=== PATIENT | female | born 1985 | race Hispanic/Latino ===

== ENCOUNTER 2020-04-01 06:35 | Outpatient (CLI) | payer OTHER, SELFPAY ==
[2020-04-01 17:27] LABS: SARS-CoV-2 RNA PCR Negative
== END 2020-04-01 06:36 | disposition home or self-care (01) ==
LOC: ANHCOVIDDT 06:35
PROVIDERS: Visit Provider Obstetrics & Gynecology
DX: Z01.812 Encounter for preprocedural laboratory examination (principal); Z11.59 Encounter for screening for other viral diseases
CPT/HCPCS: 87635; C9803; U0003

== ENCOUNTER 2020-04-04 03:30 | Day surgery (SDC) | payer OTHER, SELFPAY ==
[2020-03-30 16:20] VITALS: BMI 37.6
[2020-04-04 06:19] VITALS: BMI 38.0
[2020-04-04] MEDS: LACTATED RINGERS 1,000 ML 30 ML IV CONT (06:30)
[2020-04-04] MEDS: IBUPROFEN IV 800 MG/200 ML 800 MG/200 ML BAG 400 MG IVPB (06:35)
--- NOTE | 2020-04-04 06:37 | WPDHPUPDATE1 ---
History and Physical Update Update Date/Time: 04/04/20 06:37 History and Physical has been reviewed, including an updated exam of the patient. There are NO changes in the patient's condition. Risks, benefits, and alternatives have been discussed and questions answered. Patient agrees to proceed with procedure.
--- NOTE | 2020-04-04 06:58 | P.PNAN_ITS ---
Anes - Initial Pre Proc Eval Procedure: Operation Date: 04/04/20 07:30 Proposed Procedures p Suction Dilation and Curettage - Choco Hensley MD Date/Time: 04/04/20 06:58 Surgeon: Choco Hensley MD Pre Op Diagnosis: Missed AB Patient Data Age: 34 Gender: F Height: 5 ft 2 in Weight: 94.2 kg Allergies Allergy/AdvReac Type Severity Reaction Status Date / Time No Known Allergies Allergy Verified 03/30/20 16:31 Home Medications Medication Instructions Recorded Confirmed Type No Home Medications 03/30/20 03/30/20 History Patient hx anesthesia problems: none Family hx anesthesia problems: none [facility] Past Medical History Medical History (Updated 04/04/20 @ 07:02 by Manpreet Richey MD) Obesity Surgical History Surgical History (Updated 04/04/20 @ 07:02 by Manpreet Richey MD) History of D&C Social History Social History Years smoked: 3 Smoking status: Former smoker Additional smoking assessment comments: QUIT 4 YEARS AGO Substance use: never Spiritual care concerns: No Anes - Eval Final PreProcedure Day of Procedure 04/04/20 06:58 Patient weight: obese Heart: regular rate and rhythm Lungs: clear to auscultation Airway: Mallampati scale class II Neurological: alert and oriented Last oral intake: >/= 8 hours ASA classification: II Emergent: no Anesthetic plan: proceed Anesthesia type and monitoring: general GIVS and standard monitoring Informed Consent: The patient's anesthetic plan and its attendant risks and benefits were discussed with the patient/family/POA. Questions were solicited and answers provided to the satisfaction of the patient/family/POA.
[2020-04-04 07:19] VITALS: BP 131/69; PULSE 84; RESP 16; TEMP 37.1; O2SAT 100
[2020-04-04 08:05] VITALS: BP 99/62; PULSE 83; RESP 14; O2SAT 93
--- NOTE | 2020-04-04 08:18 | P.OP_ITS ---
Procedure Note - Detailed Date of procedure: 04/04/20 Pre-op diagnosis: Missed AB Post-op diagnosis: same Procedure performed: Suction D&C Description of procedure: The patient was taken the operating room. She has prepped and draped in dorsal lithotomy position after induction of mac anesthesia. A speculum was placed in the vagina. The cervix was grasped with a tenaculum. The cervix was injected at 3 and 9:00 a.m. with 1% lidocaine. The cervix was dilated up to 8 mm using Jeffery dilators. An 8 curved plastic suction curette was then applied to the intrauterine cavity. All of the surfaces in the intrauterine cavity were curettage under VAC. A sharp medium-size curette was then used to curettage all the surfaces to confirmed the removal of all the products conception. When all surfaces for bleed to be clean the curette was r emoved. The suction curette was then reapplied to remove all the debris. The procedure was terminated. The tenaculum was removed. The speculum was removed. The patient tolerated the procedure well. She was taken recovery room in stable condition. Anesthesia: MAC Surgeon: Choco Hensley MD Estimated blood loss (mL): 25 Drains: No Packing: No Pathology: yes Complications: No immediate complications Condition: stable Disposition: PACU Findings: Normal vulva vagina and cervix. The moderate amounts of products conception. 12 cm uterus.
[2020-04-04 08:30] VITALS: BP 105/66; PULSE 62; RESP 14; O2SAT 95
[2020-04-04 09:00] VITALS: BP 111/62; PULSE 52; RESP 14
--- NOTE | 2020-04-25 06:28 | PM.IMHP ---
H&P: HPI History of Present Illness Chief complaint: Missed AB Narrative: Olimpia Wang is a 34 year old female With a missed . We have agreed to perform suction D&C. She denies any nausea, vomiting, fever, chills. She denies any chest pain or shortness of breath. She denies any vaginal bleeding. Review of Systems Constitutional: Constitutional: Reports no additional constitutional complaints, Denies fatigue, Denies headache(s), Denies lethargy and Denies weakness Eyes: Eyes: Reports no additional eye complaints, Denies blurry vision and Denies photophobia ENT: Reports as per HPI, Denies headache(s) and Denies neck pain Cardiovascular: Cardiovascular: Denies chest pain, Denies diaphoresis, Denies leg edema, Denies palpitations and Denies dyspnea Respiratory: Respiratory: Denies hemoptysis, Denies dyspnea and Denies wheezing Gastrointestinal: Gastrointestinal: Denies abdominal pain, Denies melena, Denies bloating, Denies hematochezia, Denies nausea and Denies vomiting Genitourinary: Genitourinary: Reports no additional female genitourinary complaints Musculoskeletal: Musculoskeletal: Denies joint swelling, Denies neck pain, Denies numbness and Denies stiffness Neurologic: Denies Abnormal speech present, Denies confusion, Denies headache(s), Denies numbness and Denies weakness Psychiatric: Psychiatric: Denies anxiety, Denies confusion, Denies depression, Denies homicidal ideation and Denies suicidal ideation Endocrine: Endocrine: Denies fatigue and Denies palpitations Allergic/Immunologic: Allergic/Immunologic: Denies wheezing PMFSH Past Medical History Medical History (Updated 04/25/20 @ 06:30 by Choco Hensley MD) Obesity Surgical History Surgical History (Updated 04/04/20 @ 07:02 by Manpreet Richey MD) History of D&C Social History Social History Years smoked: 3 Smoking status: Former smoker Additional smoking assessment comments: QUIT 4 YEARS AGO Substance use: never Spiritual care concerns: No Meds Home Medications and Allergies Home Medications Medication Instructions Recorded Confirmed Type No Home Medications 03/30/20 03/30/20 History Allergies Allergy/AdvReac Type Severity Reaction Status Date / Time No Known Allergies Allergy Verified 07/07/20 07:07 Exam Const: General: healthy appearing, comfortable and no acute distress; No confusion Orientation/consciousness: No confusion Eyes: Direct Ophthalmoscopy: No photophobia Resp: Auscultation: clear to auscultation bilaterally, no rales, no rhonchi and no wheezes Cardio: Rate: regular rate Heart sounds: no click, no murmurs and no rubs GI: Inspection: non-distended GI Palp: No abdominal tenderness Auscultation: normal bowel sounds Neuro: General: No confusion Speech: No Abnormal speech present Extrem: General: normal to inspection, no pedal edema and no calf tenderness Assessment and Plan Assessment and plan (1) Missed : Code(s): O02.1 - Missed Status: Acute Assessment and Plan: this patient is a 34-year-old female with missed . Agreed to perform suction D&C. She understands the risks, benefits, and alternatives. She has completed the informed consent process is ready to proceed.
== END 2020-04-04 09:10 | disposition home or self-care (01) ==
PROVIDERS: Visit Provider Obstetrics & Gynecology
PROC: (CPT 59820; principal; 2020-04-04 07:30)
DX: O02.1 Missed abortion (principal); Z87.891 Personal history of nicotine dependence
CPT/HCPCS: 59820; 36415; 85461; 88305; A9270; J1741; J2250; J2405; J2704; J3010; J7120

== ENCOUNTER 2020-11-08 16:42 | Outpatient (CLI) | payer OTHER, SELFPAY ==
[2020-11-11 19:34] LABS: Lupus dRVVT 1:1 Mix Interpreta Not Indicated; Lupus dRVVT Screen 34 sec (<=45); PTT-LA Screen 32 sec (<=40)
[2020-11-13 03:25] LABS: Anti Cardio Antibody IgM <12 MPL (<=12); Anti Cardiolipin Antibody IgA <11 APL (<=11); Anti Cardiolipin Antibody IgG <14 GPL (<=14)
== END 2020-11-08 16:43 | disposition home or self-care (01) ==
LOC: ANHLAB 16:44
PROVIDERS: Visit Provider Obstetrics & Gynecology
DX: N96 Recurrent pregnancy loss (principal)
CPT/HCPCS: 36415; 84443; 85613; 85730; 86147

== ENCOUNTER 2021-10-12 18:15 | Inpatient (IN) | payer OTHER, SELFPAY ==
[2021-10-12] VITALS (21 sets, daily range): BP systolic 105–136; BP diastolic 67–94; PULSE 93–114; TEMP 36.9; BMI 36.7
--- NOTE | 2021-10-12 19:05 | WPDANESEPP ---
Anes - Eval Pre Procedure Procedure: labor epidural Date/Time: 10/12/21 19:05 Surgeon: keegan Pre Op Diagnosis: IOL Patient Data Age: 36 Gender: F Height: Weight: Last Vital Signs Pulse 101 H 10/12/21 19:00 BP 120/81 10/12/21 19:00 Allergies Allergy/AdvReac Type Severity Reaction Status Date / Time No Known Allergies Allergy Verified 10/02/21 12:46 Home Medications Medication Instructions Recorded Confirmed Type aspirin [Adult Low Dose Aspirin] 81 mg PO DAILY 10/02/21 10/02/21 History ferrous sulfate 140 mg PO DAILY 10/02/21 10/02/21 History insulin NPH isoph U-100 human 6 unit SUBCUT QAM 10/02/21 10/02/21 History [Humulin N NPH U-100 Insulin] insulin NPH isoph U-100 human 52 unit SUBCUT HS 10/02/21 10/02/21 History [Humulin N NPH U-100 Insulin] prenat.vits,nadeem,[id number] 1 tablet PO DAILY 10/02/21 10/02/21 History [ #2] Patient hx anesthesia problems: none Family hx anesthesia problems: none Results Review: All pre-operative results and documents have been reviewed as part of the pre-operative evaluation. [facility] [place] Past Medical History Medical History (Updated 04/25/20 @ 06:30 by Choco Hensley MD) Obesity Surgical History Surgical History (Updated 04/04/20 @ 07:02 by Manpreet Richey MD) History of D&C Family History Family History (Updated 10/02/21 @ 12:47 by Jc King RN) Other No pertinent family history Social History Social History Years smoked: 3 Smoking status: Former smoker Additional smoking assessment comments: QUIT 4 YEARS AGO Substance use: never Spiritual care concerns: No Exam Day of Procedure 10/12/21 19:05
[2021-10-12 19:07] LABS: Glucose Point of Care 100 mg/dl (65-105)
[2021-10-12 19:13] LABS: Basophils Percent Auto 0.2 % (0.2-1.2); Eosinophils Percent Auto 0.3 % (0-4.4); Hematocrit 35.4 % (37.0-47.0); Hemoglobin 11.8 g/dL (12.0-15.0); Immature Granulocyte Absolute 0.06 K/mm3 (0.00-0.031); Immature Granulocyte Percent A 0.6 % (0-0.5); Lymphocytes Absolute Auto 1.62 K/mm3 (0.9-3.2); Mean Corpuscular HGB Conc 33.3 g/dl (32-36); Mean Corpuscular Hemoglobin 29.8 pg (26-34); Mean Corpuscular Volume 89.4 fl (80-100); Mean Platelet Volume 11.3 fl (7.4-10.4); Monocytes Absolute Auto 0.7 K/mm3 (0.1-0.6); Neutrophils Absolute Auto 7.1 K/mm3 (1.3-6.7); Neutrophils Percent Auto 74.9 % (45.5-73.1); Platelet Count Result 290 k/mm3 (150-375); Red Blood Count 3.96 M/mm3 (4.2-5.4); Red Cell Distribution Width 13.5 % (11.5-14.5); White Blood Count 9.5 K/mm3 (4.5-10.0)
[2021-10-12] MEDS: OXYTOCIN 30 UNITS/NS 500 ML 30 UNITS/500 ML BAG IV CONT (20:00)
[2021-10-12] MEDS: LACTATED RINGERS 1,000 ML 125 ML IV CONT (20:00)
[2021-10-12 23:18] LABS: Glucose Point of Care 76 mg/dl (65-105)
[2021-10-13] VITALS (169 sets, daily range): BP systolic 90–153; BP diastolic 36–109; PULSE 75–127; RESP 16–18; TEMP 36.4–37.3; O2SAT 98–100
--- NOTE | 2021-10-13 01:32 | LDADM ---
This patient, Olimpia Wang, was admitted to Labor/Delivery/Recovery 106 on 10/12/21 at 18:15. Plans for labor, pain management and were discussed with patient. Patient/family oriented to hospital policies and general routines including ID bracelet, bed and alarms, visiting hours, pain management, procedures, bathroom and other care routines, personal items, smoking policy, room service/diet and guest tray routines, security routines, and visiting hours. Patient/Family are encouraged to report perceived risks to care and to ask questions if they do not understand what they are told or what they should do. See OBIX for further documentation.
[2021-10-13 03:51] LABS: Glucose Point of Care 79 mg/dl (65-105)
[2021-10-13] MEDS: LACTATED RINGERS 1,000 ML 125 ML IV CONT ×2 (04:19→19:57)
[2021-10-13 07:32] LABS: Glucose Point of Care 86 mg/dl (65-105)
[2021-10-13 11:31] LABS: Glucose Point of Care 103 mg/dl (65-105)
[2021-10-13 15:43] LABS: Glucose Point of Care 79 mg/dl (65-105)
[2021-10-13 17:31] LABS: Glucose Point of Care 84 mg/dl (65-105)
[2021-10-13 20:04] LABS: Glucose Point of Care 81 mg/dl (65-105)
[2021-10-13 22:04] LABS: Glucose Point of Care 87 mg/dl (65-105)
[2021-10-14] VITALS (174 sets, daily range): BP systolic 71–144; BP diastolic 24–126; PULSE 52–162; RESP 16–20; TEMP 36.6–37.9; O2SAT 80–100
[2021-10-14] MEDS: LACTATED RINGERS 1,000 ML 125 ML IV CONT ×5 (00:18→07:30)
[2021-10-14 00:23] LABS: Glucose Point of Care 88 mg/dl (65-105)
[2021-10-14] MEDS: AMPICILLIN 2 GM/NS 100 ML 2 GM/100 ML BAG IVPB (02:02)
[2021-10-14 02:14] LABS: Glucose Point of Care 92 mg/dl (65-105)
[2021-10-14 04:14] LABS: Glucose Point of Care 114 mg/dl (65-105)
[2021-10-14] MEDS: AMPICILLIN 1 GM/NS 50 ML 1 GM/50 ML BAG IVPB (06:04)
[2021-10-14 06:13] LABS: Glucose Point of Care 97 mg/dl (65-105)
--- NOTE | 2021-10-14 07:26 | PM.IMHP ---
H&P: HPI History of Present Illness Date/Time: 10/14/21 07:26 Chief Complaint: induction of labor Narrative: Olimpia is a admitted for IOL at 37.4 for uncontrolled GDM and new onset gHTN. She received pitocin and AROM and progressed to 6cm over many hours. After a prolonged decel, the pitocin was turned off and was never able to be restarted due to minimal variability. The decision has been made for a CS. Review of Systems Review of Systems: All systems reviewed & are unremarkable except as noted in HPI and below PMFSH Past Medical History Medical History (Updated 04/25/20 @ 06:30 by Choco Hensley MD) Obesity Surgical History Surgical History (Updated 04/04/20 @ 07:02 by Manpreet Richey MD) History of D&C Family History Family History (Updated 10/02/21 @ 12:47 by Jc King RN) Other No pertinent family history Social History Social History Years smoked: 3 Smoking status: Never smoker Second hand tobacco smoke exposure: No Additional smoking assessment comments: QUIT 4 YEARS AGO Substance use: never Spiritual care concerns: No Meds Home Medications and Allergies Home Medications Medication Instructions Recorded Confirmed Type aspirin [Adult Low Dose Aspirin] 81 mg PO DAILY 10/02/21 10/02/21 History ferrous sulfate 140 mg PO DAILY 10/02/21 10/02/21 History insulin NPH isoph U-100 human 6 unit SUBCUT QAM 10/02/21 10/02/21 History [Humulin N NPH U-100 Insulin] insulin NPH isoph U-100 human 63 unit SUBCUT HS 10/02/21 10/12/21 History [Humulin N NPH U-100 Insulin] prenat.vits,nadeem,[id number] 1 tablet PO DAILY 10/02/21 10/02/21 History [ #2] Allergies Allergy/AdvReac Type Severity Reaction Status Date / Time No Known Allergies Allergy Verified 10/12/21 21:26 Vital Signs Vital Signs - 24 hr 10/13/21 07:30 10/13/21 08:01 10/13/21 08:16 Temperature 98.1 F Pulse Rate 96 89 88 Respiratory Rate Blood Pressure 121/80 127/61 108/60 Pulse Oximetry 10/13/21 08:30 10/13/21 08:45 10/13/21 09:01 Temperature Pulse Rate 89 83 92 Respiratory Rate Blood Pressure 111/71 115/83 115/69 Pulse Oximetry 10/13/21 09:15 10/13/21 09:30 10/13/21 09:31 Temperature 98.5 F Pulse Rate 86 92 Respiratory Rate Blood Pressure 119/68 127/70 Pulse Oximetry 10/13/21 09:45 10/13/21 10:00 10/13/21 10:15 Temperature Pulse Rate 91 92 90 Respiratory Rate Blood Pressure 124/71 121/73 127/78 Pulse Oximetry 10/13/21 10:31 10/13/21 10:45 10/13/21 11:00 Temperature Pulse Rate 84 98 93 Respiratory Rate Blood Pressure 95/56 L 115/77 125/71 Pulse Oximetry 10/13/21 11:16 10/13/21 11:30 10/13/21 11:46 Temperature 98 F Pulse Rate 96 94 82 Respiratory Rate Blood Pressure 96/62 L 116/83 109/90 Pulse Oximetry 10/13/21 12:00 10/13/21 12:15 10/13/21 12:33 Temperature Pulse Rate 90 85 90 Respiratory Rate Blood Pressure 120/83 116/73 137/71 Pulse Oximetry 10/13/21 12:46 10/13/21 13:15 10/13/21 13:30 Temperature 98.4 F Pulse Rate 96 103 H 92 Respiratory Rate Blood Pressure 153/73 H 132/74 122/69 Pulse Oximetry 10/13/21 13:46 10/13/21 13:51 10/13/21 13:56 Temperature Pulse Rate Respiratory Rate Blood Pressure Pulse Oximetry 98 99 99 10/13/21 14:01 10/13/21 14:06 10/13/21 14:11 Temperature Pulse Rate 89 Respiratory Rate Blood Pressure 126/76 Pulse Oximetry 100 100 98 10/13/21 14:16 10/13/21 14:21 10/13/21 14:26 Temperature Pulse Rate Respiratory Rate Blood Pressure Pulse Oximetry 98 98 98 10/13/21 14:31 10/13/21 14:36 10/13/21 14:41 Temperature Pulse Rate Respiratory Rate Blood Pressure Pulse Oximetry 99 98 98 10/13/21 14:46 10/13/21 14:51 10/13/21 15:05 Temperature Pulse Rate Respiratory Rate Blood Pressure Pulse Oxime
--- NOTE | 2021-10-14 07:31 | WPDHPUPDATE1 ---
History and Physical Update Update Date/Time: 10/14/21 07:31 History and Physical has been reviewed, including an updated exam of the patient. There are NO changes in the patient's condition. Risks, benefits, and alternatives have been discussed and questions answered. Patient agrees to proceed with procedure.
[2021-10-14] MEDS: ceFAZolin 2 GM/D5W 50 ML 2 GM/50 ML BAG IVPB (07:40)
--- NOTE | 2021-10-14 08:35 | P.PCNOB_ITS ---
OB - Delivery Note Procedure Delivery date: 10/14/21 Procedure: Procedures Operation Date: 10/14/21 07:30 <No data on this case meets the specified criteria> Primary low transverse section events: Gestational Diabetes, Induced HTN and Labor Induction Intrapartal events: Prolonged Active Phase Induction method: AROM and per pitocin protocol Delivery monitor: external FHT and internal uterine Route of delivery: Specimen: Yes (placenta) Quantitative Blood Loss (ml): 530 Anesthesia type: Spinal Disposition: floor Complications: none Narrative: The patient was taken to the OR and received spinal anesthesia. She was placed in dorsal supine position with left lateral tilt. SCDs and braun were placed. She was prepped and draped in the normal sterile fashion. A Pfannensteil skin incision was made and carried through to the underlying layer of fascia. The fascia was incised in the midline and then extended laterally using Dang scissors. The muscles were in the midline and the peritoneum was entered bluntly. The peritoneal incision was extended inferiorly and superiorly with care to avoid the bladder. The bladder blade was then inserted, the vesicouterine peritoneum was grasped, incised with Metzenbaum scissors, and a bladder flap created. The bladder blade was reinserted. A low transverse uterine incision was made with a scalpel and extended with bandage scissors due to thick lower uterine segment. During this a Bandl's ring was noted through the thick lower uterine segment. AROM was performed and fluid was noted to have thin meconium. The head was delivered, followed by the remainder of the baby. The baby's oropharynx was suctioned. After 30 seconds, the cord was clamped and cut and the infant was handed off. Cord blood was obtained and the placenta was then removed manually. The uterus was exteriorized. A moist lap sponge was used to curette the endome trium. The uterine incision was then closed with two layers of 0-Vicryl in a running, locking fashion. Good hemostasis was noted. The posterior cul de sac was irrigated with normal saline and cleared of all clot and debris. The uterus was returned to the abdomen. Both lateral gutters were then irrigated. The rectus muscles were inspected and found to be hemostatic. The fascia was reapproximated using 0-Vicryl in running fashion. The subcutaneous tissue was irrigated with normal saline and made hemostatic with Bovie electrocautery. The subcutaneous tissue was reapproximated with a layer of running 2-0 plain gut. The skin was then closed with absorbable freddy. Steri strips and a bandage were applied. The uterus was evacuated. The patient tolerated the procedure very well. All counts were correct. She was taken to the recovery room in good condition. [place] Baby Date of : 10/14/21 Time of : 08:00 Weeks of gestation at delivery: 37 gender: Female Weight (pounds): 5 Weight (ounces): 13 presentation: vertex Placenta delivery description: Manual Removal cord vessel description: 3 Vessels and Delayed Cord Clamping score one minute: 6 score five minutes: 9
[2021-10-14] MEDS: fentaNYL CITRATE INJ (*CRX) 100 MCG/2 ML VIAL IV PUSH (09:20)
[2021-10-14] MEDS: OXYTOCIN 30 UNITS/NS 500 ML 30 UNITS/500 ML BAG 125 UNITS IV CONT (09:40)
--- NOTE | 2021-10-14 12:50 | OBPPTRN ---
1100 Patient transferred to post room #290 via stretcher . Support person present. Oriented to unit, room, information board, rooming in, admission packet and security measures. Patient verbalizes understanding.
[2021-10-14] MEDS: KCL 20 MEQ/D5/0.45% SOD CHL 1,000 ML 125 ML IV CONT (13:48)
[2021-10-14] MEDS: IBUPROFEN 600 MG TABLET PO (19:17)
[2021-10-15] MEDS: HYDROcodone/acetaminophen (*CRX) 5-325 MG TABLET 1 TAB PO ×5 (00:45→22:41)
[2021-10-15] MEDS: IBUPROFEN 600 MG TABLET PO ×4 (01:38→22:42)
[2021-10-15 04:15] VITALS: BP 102/62; PULSE 90; RESP 18; TEMP 36.5; O2SAT 97
[2021-10-15 04:39] LABS: Basophils Percent Auto 0.1 % (0.2-1.2); Eosinophils Percent Auto 0.1 % (0-4.4); Hematocrit 29.2 % (37.0-47.0); Hemoglobin 9.7 g/dL (12.0-15.0); Immature Granulocyte Absolute 0.11 K/mm3 (0.00-0.031); Immature Granulocyte Percent A 0.8 % (0-0.5); Lymphocytes Absolute Auto 1.17 K/mm3 (0.9-3.2); Lymphocytes Percent Auto 8.1 % (18.3-44.2); Mean Corpuscular HGB Conc 33.2 g/dl (32-36); Mean Corpuscular Volume 90.4 fl (80-100); Mean Platelet Volume 11.3 fl (7.4-10.4); Monocytes Absolute Auto 0.7 K/mm3 (0.1-0.6); Neutrophils Absolute Auto 12.4 K/mm3 (1.3-6.7); Neutrophils Percent Auto 85.9 % (45.5-73.1); Platelet Count Result 211 k/mm3 (150-375); Red Blood Count 3.23 M/mm3 (4.2-5.4); Red Cell Distribution Width 13.9 % (11.5-14.5); White Blood Count 14.4 K/mm3 (4.5-10.0)
--- NOTE | 2021-10-15 07:38 | PM.OBPNVD ---
OB - PN: Subj Subjective Date/time seen: 10/15/21 07:38 Patient comments: no complaints and pain well controlled baby status: doing well Narrative: POD 1 from primary CS. Doing well. Normal lochia. Eating, ambulating, braun out, has voided. OB - PN: Obj Data Labs CBC & Chem 7: 10/15/21 04:09 Labs: Laboratory Results - last 24 hr 10/15/21 04:09 WBC 14.4 H RBC 3.23 L Hgb 9.7 L Hct 29.2 L MCV 90.4 MCH 30.0 MCHC 33.2 RDW 13.9 Plt Count 211 MPV 11.3 H Immature Gran % (Auto) 0.8 H Neut % (Auto) 85.9 H Lymph % (Auto) 8.1 L [place] % (Auto) 5.0 Eos % (Auto) 0.1 Baso % (Auto) 0.1 L Lymph # (Auto) 1.17 [place] # (Auto) 0.7 H Eos # (Auto) 0.0 Baso # (Auto) 0.0 Abs Immat Gran (auto) 0.11 H Absolute Neuts (auto) 12.4 H Absolute Nucleated RBC 0.0 Nucleated RBC % 0.0 OB - PN A/P Assessment and Plan (1) delivery delivered: Code(s): O82 - Encounter for delivery without indication Status: Acute Plan day: 1 Plan: routine care Time Spent With Patient Time: Total time spent is greater than 50% in coordination of care (as documented) at patient's floor/unit and/or counseling patient: Exam Narrative: NAD abdomen soft, appropriately tender, incision bandaged Extremities nontender with 1+ edema
[2021-10-15] MEDS: POLYSACCHARIDE IRON COMPLEX 150 MG CAPSULE PO ×2 (07:48→15:32)
[2021-10-15] MEDS: DOCUSATE SODIUM 100 MG CAPSULE PO ×2 (07:48→15:32)
[2021-10-15] MEDS: MULTIVIT/MIN/PREN/FOL AC/IRON TABLET 1 TAB PO (07:49)
[2021-10-15 08:00] VITALS: BP 107/74; PULSE 90; RESP 18; TEMP 36.9; O2SAT 99
--- NOTE | 2021-10-15 11:25 | PC.NURSE ---
1005 - Mother verbalizes she is able to feeding her with the help of her support person and has outside assistance using Kathrine at the Dr's office. She denies putting the to breast or pumping related to recovering from the section. is currently meeting outcomes for weight, output, jaundice and feeding frequencies. Mother states she does not require feeding assist/education at this time but desires to make human milk. RN discussed providing a breast pump to support moms desires. Patient plans to call for assistance with pumping after she sits up for a bit and showers. Information given on breast pump care and usage, pumping schedule every three hours, nipple care, and collection and storage of breast milk to encouraged stimulating supply. Feeding sheet to log intake/output and pumping reviewed. Patient verbalizes and demonstrates understanding of instructions. Reviewed resources in the Mom/Baby guide. Instructed mother to call out for future feedings if assistance is needed.
--- NOTE | 2021-10-15 11:32 | PC.NURSE ---
1005 - Mother verbalizes she is able to feed with help from her support person and she plans to utilize Kathrine at the Dr's office for . She denies putting to breast or pumping. Infant is currently meeting outcomes for weight, output, jaundice and feeding frequencies. Mother states she does not require feeding assist/education at this time but desires to make human milk. Discussed providing a breast pump to encourage stimulation of milk supply. Information given on breast pump care and usage, pumping schedule (every 3 hours), nipple care, and collection and storage of breast milk. Mom plans to call RN after ADL's are complete to initiate pumping. Patient verbalizes and demonstrates understanding of instructions. Reviewed resources in the Mom/Baby guide. Instructed mother to call out for setting up the pumping and future feedings if assistance is needed. Reported to primary RN.
[2021-10-15 11:40] VITALS: BP 124/69; PULSE 102; RESP 16; TEMP 36.8; O2SAT 99
[2021-10-15 11:59] LABS: Rapid Plasma Reagin Non-Reactive (NonReactive)
--- NOTE | 2021-10-15 15:22 | WPDANLDPN2 ---
Anes-Prog Note L&D Date/Time: 10/15/21 15:22 Comfortable throughout: labor and delivery Neuraxial method: epidural Epidural/Spinal procedure site: clean & non-tender Neuro status: Neuro function grossly intact. Cardiovascular status: normal Respiratory status: normal Airway patency: baseline Mental status: baseline Post-Op hydration status: normal Vital Signs: Last Vital Signs Temp 36.8 C 10/15/21 11:40 Pulse 102 H 10/15/21 11:40 Resp 16 10/15/21 11:40 BP 124/69 10/15/21 11:40 Pulse Ox 99 10/15/21 11:40 Pain score (VAS): 0 I/O: Intake & Output 10/14/21 10/15/21 10/15/21 23:59 07:59 15:59 Intake Total 900 100 Output Total 1450 250 300 Balance -550 -150 -300 Patient feedback: Patient satisfied with anesthetic care.
[2021-10-15] MEDS: SIMETHICONE 80 MG TAB.CHEW PO ×2 (15:36→22:41)
[2021-10-15 16:15] VITALS: BP 127/77; PULSE 97; RESP 20; TEMP 36.2; O2SAT 100
[2021-10-15 20:04] VITALS: BP 121/76; PULSE 90; RESP 18; TEMP 36.8; O2SAT 100
[2021-10-16 04:00] VITALS: BP 130/72
[2021-10-16] MEDS: IBUPROFEN 600 MG TABLET PO (05:40)
[2021-10-16] MEDS: HYDROcodone/acetaminophen (*CRX) 5-325 MG TABLET 1 TAB PO ×2 (05:40→10:44)
[2021-10-16 07:30] VITALS: BP 118/78; PULSE 85; RESP 16; TEMP 36.7; O2SAT 99
--- NOTE | 2021-10-16 07:52 | P.PNOB_ITS ---
OB - PN: Subj Subjective Date/time seen: 10/16/21 07:52 Patient comments: no complaints and pain well controlled baby status: doing well and nursing well Narrative: would like DC home today. OB - PN: Obj Data Labs CBC & Chem 7: 10/15/21 04:09 Labs: Laboratory Results - last 24 hr 10/12/21 19:00 RPR Non-reactive OB - PN A/P Assessment and Plan (1) delivery delivered: Code(s): O82 - Encounter for delivery without indication Status: Acute Plan Plan: routine care and discharge home Comments: DC instructions given tuck pad or clean dry washcloth under pannus to keep dry FU 1 week. Time Spent With Patient Time: Total time spent is greater than 50% in coordination of care (as document ed) at patient's floor/unit and/or counseling patient: Exam Narrative: NAD abdomen soft, appropriately tender, incision CDI, some moisture under pannus Extremities nontender with 1+ edema
--- NOTE | 2021-10-16 07:58 | P.DS_ITS ---
DS: Admitting Diagnosis Discharge Date 10/16/21 Admitting Diagnosis term IUP, GDM, gHTN DS: Discharge Diagnosis Discharge Diagnosis (1) delivery delivered: Code(s): O82 - Encounter for delivery without indication Status: Acute DS: Summary Hospital Course Hospital Course: Olimpia was admitted for induction for GDM and PIH. She stalled at 5cm with adequate contractions and baby started having persistent late decelerations, so decision was made for CS. At CS she was found to have Bandl's ring and very thick lower uterine segment. Her postoperative course was uncomplicated and she was DCed home on POD2. Status at Discharge Functional status at discharge: independent ambulation Time Spent with Patient Time attestation: Total time spent providing and/or coordinating discharge services: Exam Narrative: NAD abdomen soft, appropriately tender, incision CDI DS: Data Data Completed and Pending Pending studies at discharge: Pending at discharge 10/14/21 09:35 Surgical [PTH] Routine Labs on day of discharge: Labs from last 24 hours 10/12/21 19:00 RPR Non-reactive Discharge Plan Discharge Attending physician on discharge: She Morton Discharging Clinician: She Morton Anticipated Discharge Date/Time: 10/16/21 07:54 Patient Disposition: Home, Self-Care Activity: may shower, may drive after 2 weeks and pelvic rest Diet: regular Patient Instructions: Antibiotic Form Stand Alone Forms: General Discharge Information Follow-up/Referrals: She Morton MD [Physician] - Discharge Medications: New hydrocodone-acetaminophen 5-325 mg Tablet 1 tablet PO Q4-5H PRN (Reason: Moderate Pain (4-6)) Qty: 30 RF: 0 docusate sodium 100 mg Capsule 100 mg PO BID PRN (Reason: Constipation) Qty: 60 RF: 0 ibuprofen 600 mg Tablet 600 mg PO Q6H PRN (Reason: Cramping) Qty: 60 RF: 0 Continued Adult Low Dose Aspirin 81 mg Tablet 81 mg PO DAILY RF: 0 #2 Tablet 1 tablet PO DAILY RF: 0 ferrous sulfate 140 mg (45 mg iron) Tablet Extended Release 140 mg PO DAILY RF: 0 Discontinued Humulin N NPH U-100 Insulin 100 unit/mL Suspension 63 unit SUBCUT HS RF: 0 Humulin N NPH U-100 Insulin 100 unit/mL Suspension 6 unit SUBCUT QAM RF: 0 Date of admission: 10/12/21 18:15 Primary Care Provider: PHYSICIAN,CERAMIC DESIGN ENGINEER Admitting Provider: Choco Hensley Attending physician on admission: Choco Hensley Condition: Stable
[2021-10-16 09:00] VITALS: PULSE 85; RESP 16; O2SAT 99
[2021-10-16] MEDS: DOCUSATE SODIUM 100 MG CAPSULE PO (10:43)
[2021-10-16] MEDS: MULTIVIT/MIN/PREN/FOL AC/IRON TABLET 1 TAB PO (10:43)
[2021-10-16] MEDS: POLYSACCHARIDE IRON COMPLEX 150 MG CAPSULE PO (10:43)
[2021-10-16] MEDS: SIMETHICONE 80 MG TAB.CHEW PO (10:43)
--- NOTE | 2021-10-16 11:40 | PC.NURSE ---
Spoke with Dr. Morton regarding yellow pustular rash on patients left side of incision. Appears to be only in area covered by adhesive.
--- NOTE | 2021-10-16 12:53 | PC.NURSE ---
0930 - Consulted with mother on her plan to feed baby. Mother is bottle feeding but expresses desire to make human milk. Improving milk production is discussed with the parents. They will call out if they decide they want to start pumping for human milk supply. 1030 - Breast pump provided due to lactating mother who desires to produce human milk for her infant. Instructions given on breast pump care and usage, pumping schedule, nipple care, and collection and storage of breast milk. Encouraged [id number], breast massage and manual expression to stimulate supply. Pumping log provided and reviewed. Assessed patient for correct flange size, placement and draw. Patient verbalizes and demonstrates understanding of instructions.
== END 2021-10-16 12:43 | disposition home or self-care (01) | DRG 540 ==
LOC: ANHOB2 10-16 08:03 → ANHLDR 10-17 09:47 → ANHOB2 10-17 09:47
PROVIDERS: Advanced Practice Midwife; Obstetrics & Gynecology; Admitting Provider Obstetrics & Gynecology; Visit Provider Obstetrics & Gynecology
PROC: 10D00Z1 Extraction of Products of Conception, Low, Open Approach (ICD-10-PCS; CPT 59514; principal; 2021-10-14 07:30)
DX: O13.4 Gestational [pregnancy-induced] hypertension without significant proteinuria, complicating childbirth (principal); O76 Abnormality in fetal heart rate and rhythm complicating labor and delivery; O99.214 Obesity complicating childbirth; E66.9 Obesity, unspecified; O62.1 Secondary uterine inertia; O24.429 Gestational diabetes mellitus in childbirth, unspecified control; Z3A.37 37 weeks gestation of pregnancy; Z37.0 Single live birth; O62.0 Primary inadequate contractions
CPT/HCPCS: 36415; 82948; 85025; 86592; 86850; 86900; 86901; 88307; A9270; J0131; J0290; J0456; J0690; J1200; J2175; J2274; J2405; J2590; J2795; J3010; J3480; J7120

== ENCOUNTER 2022-02-17 13:05 | Outpatient (CLI) | payer OTHER, SELFPAY ==
--- NOTE | ~2022-02-17 | XR_ITS ---
EXAM: XR foot RT min 3V DATE: 02/17/2022 13:22 HISTORY: PAIN IN RIGHT FOOT . COMPARISON: None available. FINDINGS: Normal mineralization. No fracture or dislocation. No lytic or blastic lesion. Joint space s are maintained. Achilles and plantar enthesopathy. No erosion or periosteal change. Soft tissues wi thin normal limits. IMPRESSION: Achilles and plantar enthesopathy, otherwise normal right foot radiograph findings. Reviewed, dictated and finalized at location K. IMPRESSION: Achilles and plantar enthesopathy, otherwise normal right foot radi ograph findings.
== END 2022-02-17 13:06 | disposition home or self-care (01) ==
LOC: ANHIMG 13:09
PROVIDERS: Visit Provider Physician Assistant
DX: M77.31 Calcaneal spur, right foot (principal)
CPT/HCPCS: 73630

== ENCOUNTER 2023-11-15 06:38 | Inpatient (IN) | payer OTHER, SELFPAY ==
[2023-11-15] VITALS (11 sets, daily range): BP systolic 111–152; BP diastolic 53–78; PULSE 76–98; RESP 16–18; TEMP 36.6–36.7; O2SAT 99–100; BMI 37.4
[2023-11-15 07:44] LABS: Basophils Percent Auto 0.6 % (0.2-1.2); Eosinophils Absolute Auto 0.1 K/mm3 (0-0.3); Eosinophils Percent Auto 1.3 % (0-4.4); Hematocrit 35.3 % (37.0-47.0); Hemoglobin 11.5 g/dL (12.0-15.0); Immature Granulocyte Absolute 0.02 K/mm3 (0.00-0.031); Immature Granulocyte Percent A 0.3 % (0-0.5); Lymphocytes Absolute Auto 1.91 K/mm3 (0.9-3.2); Lymphocytes Percent Auto 28.3 % (18.3-44.2); Mean Corpuscular HGB Conc 32.6 g/dl (32-36); Mean Corpuscular Volume 88.9 fl (80-100); Mean Platelet Volume 10.5 fl (7.4-10.4); Monocytes Absolute Auto 0.5 K/mm3 (0.1-0.6); Monocytes Percent Auto 7.4 % (2.6-8.5); Neutrophils Absolute Auto 4.2 K/mm3 (1.3-6.7); Neutrophils Percent Auto 62.1 % (45.5-73.1); Platelet Count Result 310 k/mm3 (150-375); Red Blood Count 3.97 M/mm3 (4.2-5.4); Red Cell Distribution Width 13.3 % (11.5-14.5); White Blood Count 6.7 K/mm3 (4.5-10.0)
[2023-11-15] MEDS: miSOPROStol 200 MCG TABLET VAGINAL (08:20)
[2023-11-15 08:31] LABS: Free T4 Free Thyroxine 1.02 ng/mL (0.78-2.19)
[2023-11-15 08:41] LABS: Amphetamine Screen Urine Negative (Negative); Barbiturate Screen Urine Negative (Negative); Benzodiazepines Screen Urine Negative (Negative); Cannabinoid Screen Urine Negative (Negative); Cocaine Screen Urine Negative (Negative); Methadone Screen Urine Negative (Negative); Opiate Screen Urine Negative (Negative); Phencyclidine Screen Urine Negative (Negative)
--- NOTE | 2023-11-15 09:06 | PM.IMHP ---
H&P: HPI History of Present Illness Date/Time: 11/15/23 09:06 Chief Complaint: pt here for IOL for IUFD, 15.6 weeks gestation. pt currently has no complaints of pain. 38 y.o. G 10 P5, 4 vaginal deliveries and last in 2021 primary section for failure to progress and intolerance. pt history complicated by obesity, type 2 diabetes, AMA. pt is a carrier for cystic fibrosis. Review of Systems Review of Systems: All systems reviewed & are unremarkable except as noted in HPI and below PMFSH Past Medical History Medical History (Updated 11/15/23 @ 09:16 by Radha Goode CNM) Obesity Surgical History Surgical History (Updated 04/04/20 @ 07:02 by Manpreet Richey MD) History of D&C Family History Family History (Updated 10/02/21 @ 12:47 by Jc King RN) Other No pertinent family history Social History Social History Smoking packs per day: 0 Smoking cigarettes per day: 0.0 Years smoked: 3 Smoking pack-years: 0.00 Smoking status: Former smoker Tobacco type: cigarettes Second hand tobacco smoke exposure: No Additional smoking assessment comments: social Substance use: never Do You Feel Safe in your Home?: Yes Lack of Transportation: No Lack of Food: Never True Current Housing: I Have Housing Concerned About Future Housing: No Difficulty Paying Gas/Electric Bills: No Difficulty Paying for Meds: No Currently Unemployed: No Education: High School Diploma/GED Difficulty w/ Childcare or Family Care: No Spiritual care concerns: No Meds Home Medications and Allergies Home Medications Medication Instructions Recorded Confirmed Type aspirin 81 mg tablet 81 mg PO DAILY 10/02/21 10/02/21 History ferrous sulfate 140 mg (45 mg 140 mg PO DAILY 10/02/21 10/02/21 History iron) tablet,extended release prenat.vits,nadeem,nde-mgqd-rggpm 1 tablet PO DAILY 10/02/21 10/02/21 History docusate sodium 100 mg capsule 100 mg PO BID PRN Constipation #60 10/16/21 Rx caps hydrocodone 5 mg-acetaminophen 325 1 tablet PO Q4-5H PRN Moderate 10/16/21 Rx mg tablet Pain (4-6) #30 tabs ibuprofen 600 mg tablet 600 mg PO Q6H PRN Cramping #60 tabs 10/16/21 Rx Allergies Allergy/AdvReac Type Severity Reaction Status Date / Time No Known Allergies Allergy Verified 10/12/21 21:26 Vital Signs Vital Signs - 24 hr 11/15/23 07:22 11/15/23 07:50 Temperature 36.7 C Pulse Rate 76 Respiratory Rate 18 Blood Pressure 111/60 Pulse Oximetry 99 Oxygen Delivery Room Air Exam Const: General: cooperative and healthy appearing Resp: Effort & Inspection: normal respiratory effort Cardio: Rate: regular rate GI: Inspection: normal to inspection Back/Spine/Pelvis: Back: no CVA tenderness Skin: General skin exam: normal color Extrem: Right lower extremity: normal to inspection Left lower extremity: normal to inspection Psych: Appearance: grossly normal H&P: Results Labs Labs: Short CBC 11/15/23 Range/Units 07:02 WBC 6.7 (4.5-10.0) K/mm3 Hgb 11.5 L (12.0-15.0) g/dL Hct 35.3 L (37.0-47.0) % Plt Count 310 (150-375) k/mm3 Assessment and Plan Assessment and plan (1) IUFD (intrauterine ): Status: Acute (2) AMA (advanced maternal age) multigravida 35+: Code(s): O09.529 - Supervision of elderly multigravida, unspecified trimester Status: Acute (3) Type 2 diabetes mellitus: Code(s): E11.9 - Type 2 diabetes mellitus without complications Status: Acute (4) Cystic fibrosis carrier: Code(s): Z14.1 - Cystic fibrosis carrier Status: Acute Plan 38 y.o. G 10 P5 IUFD at 15 weeks hx section type 2 diabetes AMA cystic fibrosis carrier co-managing care with dr. allison, plan vaginal cytotec
[2023-11-15 09:07] LABS: Rubella IgG Antibody 3.2 IU/ML
[2023-11-15 09:45] LABS: Hemoglobin A1C 5.7 % (<5.7)
[2023-11-15 10:47] LABS: Glucose Point of Care 147 mg/dl (65-105)
--- NOTE | 2023-11-15 11:14 | PC.NURSE ---
Eliceo Goode CNM notified of patient' s blood sugar 1 hour after eating
[2023-11-15] MEDS: miSOPROStol 200 MCG TABLET 400 MCG VAGINAL ×2 (12:45→16:50)
--- NOTE | 2023-11-15 14:52 | PC.NURSE ---
SHARE information given to patient, agreeable to SHARE follow up.
[2023-11-15 16:11] LABS: Glucose Point of Care 95 mg/dl (65-105)
[2023-11-15] MEDS: LOPERAMIDE HCL 2 MG CAPSULE 4 MG (19:55)
[2023-11-15] MEDS: miSOPROStol 200 MCG TABLET 800 MCG (19:56)
[2023-11-15] MEDS: CARBOPROST TROMETHAMINE 250 MCG/ML AMPUL IM (20:15)
--- NOTE | 2023-11-15 20:48 | PM.OBPRVD ---
OB - Vaginal Delivery Note Procedure Delivery date: 11/15/23 Events: Other (IUFD, Type 2 diabetes, cystic fibrosis carrier, AMA) Induction method: Per Misoprostol Protocol Delivery monitor: External Uterine Route of delivery: Episiotomy description: None Laceration Description: None Specimen: Yes Anesthesia type: None Disposition: Other (home) Narrative: fetus delivered, placenta remained, cytotec 800mg followed by hemabate x3 doses over an hour. speculum placed x 2, blood clots/membrane and cord sitting in vagina, removed with ring forceps. US at confirmed placenta still in uterine cavity, antibiotics started, will continue to monitor, if no resolution by the am will plan suction d&c. pt informed and agrees to POC, dr. allison co-managing care Baby Date of : 11/15/23 Time of : 19:35 Weeks of gestation at delivery: 15 gender: Male
[2023-11-15] MEDS: CARBOPROST TROMETHAMINE 250 MCG/ML AMPUL 750 MCG (21:15)
[2023-11-15] MEDS: OXYTOCIN 10 UNITS/ML VIAL (22:00)
--- NOTE | 2023-11-15 22:12 | PC.NURSE ---
phone call to [employer] Adjuster Spoke to Juan Luis Sutherland body on fetus released at this time.
--- NOTE | 2023-11-15 22:18 | PC.NURSE ---
Spoke to DARINEL at this time body released at this time spoke to HELEN Benton
[2023-11-16] VITALS (81 sets, daily range): BP systolic 92–123; BP diastolic 48–87; PULSE 67–122; RESP 17–20; TEMP 36.5–37.1; O2SAT 84–100
--- NOTE | 2023-11-16 00:20 | PC.NURSE ---
Talked to Eliceo Goode CNM at this time. Orders recieved to give LR 200ml/h, CBC at 5am, another dose of Hemabate, and call Dr. Hensley if the patient has 1000ml of blood loss.
[2023-11-16] MEDS: CARBOPROST TROMETHAMINE 250 MCG/ML AMPUL IM (01:07)
[2023-11-16] MEDS: metroNIDAZOLE 500 MG TABLET PO (01:07)
[2023-11-16] MEDS: AMPICILLIN 2 GM/NS 100 ML 2 GM/100 ML BAG IVPB (01:08)
[2023-11-16] MEDS: LACTATED RINGERS 1,000 ML 200 ML IV CONT (01:08)
[2023-11-16] MEDS: AMPICILLIN 1 GM/NS 50 ML 1 GM/50 ML BAG IVPB (05:00)
[2023-11-16 05:17] LABS: Glucose Point of Care 147 mg/dl (65-105)
[2023-11-16 05:21] LABS: Hematocrit 35.2 % (37.0-47.0); Hemoglobin 11.7 g/dL (12.0-15.0); Mean Corpuscular HGB Conc 33.2 g/dl (32-36); Mean Corpuscular Hemoglobin 29.3 pg (26-34); Mean Corpuscular Volume 88.2 fl (80-100); Mean Platelet Volume 10.3 fl (7.4-10.4); Platelet Count Result 323 k/mm3 (150-375); Red Blood Count 3.99 M/mm3 (4.2-5.4); Red Cell Distribution Width 13.2 % (11.5-14.5); White Blood Count 12.8 K/mm3 (4.5-10.0)
[2023-11-16 05:22] LABS: Hematocrit 35.2 % (37.0-47.0); Hemoglobin 11.7 g/dL (12.0-15.0)
--- NOTE | 2023-11-16 05:53 | PC.NURSE ---
Talked to Radha Goode CNM at this time. reported on maternal status and blood loss at this time. Also reported on blood work and BG results no new orders at this time.
[2023-11-16] MEDS: LACTATED RINGERS 1,000 ML 125 ML IV CONT (06:50)
--- NOTE | 2023-11-16 07:57 | WPDHPUPDATE1 ---
History and Physical Update Update Date/Time: 11/16/23 07:57 38-year-old female demise at approximately 17 weeks gestation. Delivered the fetus. After many hours of observation and medical treatment to expel the placenta it remains retained. Continued bleeding. Will perform suction D and C . the patient understands risks, benefits, and alternatives. explained the procedure to the patient in detail. She understands. She has completed the informed consent process. History and Physical has been reviewed, including an updated exam of the patient. There are NO changes in the patient's condition. Risks, benefits, and alternatives have been discussed and questions answered. Patient agrees to proceed with procedure.
--- NOTE | 2023-11-16 08:22 | WPDANESEPP ---
Anes - Eval Pre Procedure Procedure: Operation Date: 11/16/23 08:00 Proposed Procedures p D&C Suction and Sharp - R. Reg Hensley MD Date/Time: 11/16/23 08:22 Surgeon: Ayden Preop Diagnosis: Retained placenta Pre Op Diagnosis: IUFD Patient Data Age: 38 Gender: F Height: 1.63 m Weight: 99 kg Last Vital Signs Temp 36.8 C 11/16/23 08:00 Pulse 104 H 11/16/23 07:46 Resp 18 11/15/23 16:54 BP 116/63 11/16/23 07:46 Pulse Ox 100 11/16/23 06:24 O2 Del Method Room Air 11/16/23 07:00 Allergies Allergy/AdvReac Type Severity Reaction Status Date / Time No Known Allergies Allergy Verified 10/12/21 21:26 Laboratory Tests 11/15/23 11/15/23 11/15/23 07:01 07:02 10:42 WBC RBC Hgb Hct MCV MCH MCHC RDW Plt Count MPV POC Capillary Glucose 147 H mg/dl (65-105) Hemoglobin A1c 5.7 % (<5.7) TSH 3.640 uIU/mL (0.465-4.680) Free T4 1.02 ng/mL (0.78-2.19) Urine Opiates Screen Negative (Negative) Urine Methadone Screen Negative (Negative) Ur Barbiturates Screen Negative (Negative) Ur Phencyclidine Scrn Negative (Negative) Ur Amphetamine Screen Negative (Negative) U Benzodiazepines Scrn Negative (Negative) Urine Cocaine Screen Negative (Negative) U Cannabinoids Screen Negative (Negative) Rubella IgG Antibody 3.2 L IU/ML (10 - ) Blood Type O Positive Antibody Screen Negative 11/15/23 11/16/23 11/16/23 15:27 05:00 05:11 WBC RBC Hgb 11.7 L g/dL (12.0-15.0) Hct 35.2 L % (37.0-47.0) MCV MCH MCHC RDW Plt Count MPV POC Capillary Glucose 95 mg/dl 147 H mg/dl (65-105) (65-105) Hemoglobin A1c TSH Free T4 Urine Opiates Screen Urine Methadone Screen Ur Barbiturates Screen Ur Phencyclidine Scrn Ur Amphetamine Screen U Benzodiazepines Scrn Urine Cocaine Screen U Cannabinoids Screen Rubella IgG Antibody Blood Type Antibody Screen 11/16/23 05:13 WBC 12.8 H K/mm3 (4.5-10.0) RBC 3.99 L M/mm3 (4.2-5.4) Hgb 11.7 L g/dL (12.0-15.0) Hct 35.2 L % (37.0-47.0) MCV 88.2 fl (80-100) MCH 29.3 pg (26-34) MCHC 33.2 g/dl (32-36) RDW 13.2 % (11.5-14.5) Plt Count 323 k/mm3 (150-375) MPV 10.3 fl (7.4-10.4) POC Capillary Glucose Hemoglobin A1c TSH Free T4 Urine Opiates Screen Urine Methadone Screen Ur Barbiturates Screen Ur Phencyclidine Scrn Ur Amphetamine Screen U Benzodiazepines Scrn Urine Cocaine Screen U Cannabinoids Screen Rubella IgG Antibody Blood Type Antibody Screen : gestational age (IUFD at 15 wks, delivered at 1935 on 11/15, retained placenta) Patient hx anesthesia problems: none Family hx anesthesia problems: none Prior surgeries: D&C Results Review: All pre-operative results and documents have been reviewed as part of the pre-operative evaluation. [facility] Past Medical History Medical History Obesity Surgical History Surgical History History of D&C Family History Family History Other No pertinent family history Social History Social History Smoking packs per day: 0 Smoking cigarettes per day: 0.0 Yea
--- NOTE | 2023-11-16 08:41 | P.PNAN_ITS ---
Anes - Eval Final PreProcedure Day of Procedure 11/16/23 08:41 Patient weight: obese Heart: regular rate and rhythm Lungs: clear to auscultation Airway: Mallampati scale class II Neurological: alert and oriented Last oral intake: >/= 8 hours ASA classification: III Emergent: yes Anesthetic plan: proceed Anesthesia type and monitoring: general GIVS and standard monitoring Results Review: All pre-operative results and documents have been reviewed as part of the pre- operative evaluation. Informed Consent: The patient's anesthetic plan and its attendant risks and benefits were discussed with the patient/family/POA. Questions were solicited and answers provided to the satisfaction of the patient/family/POA.
[2023-11-16] MEDS: LIDOCAINE 1% BUFFERED WITH 8.4% SODIUM BICARB 1 ML SYRINGE 10 ML INFILTRATE (08:51)
--- NOTE | 2023-11-16 08:54 | PC.NURSE ---
0845- patient taken to OR for suction D&C. Report given and consents signed.
--- NOTE | 2023-11-16 08:55 | SUR.OPER ---
Remainder of Placenta and Cord Segment out at 0855.
[2023-11-16] MEDS: LACTATED RINGERS 1,000 ML 30 ML IV CONT ×2 (09:03→09:04)
--- NOTE | 2023-11-16 09:15 | P.OP_ITS ---
Procedure Note - Detailed Date of Procedure 11/16/23 Pre-op Diagnosis IUFD Post-op Diagnosis Same Procedure Performed Suction D&C Surgeon Choco Hensley MD Anesthesia MAC Indications demise at 16 weeks Findings normal-appearing vulva vagina and cervix to. Moderate amount of products placental tissue within the uterus. 16 cm uterus Description of Procedure the patient was taken the operating room. She was prepped and draped in dorsal lithotomy position after induction of mac anesthesia. A speculum was placed in the vagina. Cervix grasped with tenaculum. pieces of the placenta were removed from the cervix and the lower uterine segment using a ring forceps.. A 12 Nigerian curved curette was used to perform suction D&C. The curette was introduced and vacuum was applied. The curette was removed over all surfaces of the intrauterine cavity multiple times. This was done until all the surfaces were clear and had the familiar grainy texture they can be felt through the instrument. A sharp curette was then used to curettage all the surfaces. The suction cup was then reapplied 1 more time to remove any debris. The instruments were removed. The speculum and tenaculum were removed. The patient tolerated the procedure well. She was taken recovery room stable condition. Estimated Blood Loss 200 Drains No Packing No Pathology Yes Complications No immediate complications Condition Stable Disposition PACU
--- NOTE | 2023-11-16 10:36 | PC.NURSE ---
Patient back from PACU at 1013. Report given to this RN by Deisy VELAZQUEZ. Patient up to bathroom with assist. Bleeding and VS WNL. Per Dr. Hensley, monitor patient for 4 hours and check H&H.
[2023-11-16 13:21] LABS: Basophils Percent Auto 0.3 % (0.2-1.2); Hematocrit 33.1 % (37.0-47.0); Hemoglobin 10.7 g/dL (12.0-15.0); Immature Granulocyte Absolute 0.04 K/mm3 (0.00-0.031); Immature Granulocyte Percent A 0.4 % (0-0.5); Lymphocytes Absolute Auto 0.97 K/mm3 (0.9-3.2); Lymphocytes Percent Auto 8.7 % (18.3-44.2); Mean Corpuscular HGB Conc 32.3 g/dl (32-36); Mean Corpuscular Hemoglobin 29.5 pg (26-34); Mean Corpuscular Volume 91.2 fl (80-100); Mean Platelet Volume 10.6 fl (7.4-10.4); Monocytes Absolute Auto 0.2 K/mm3 (0.1-0.6); Monocytes Percent Auto 1.5 % (2.6-8.5); Neutrophils Absolute Auto 9.9 K/mm3 (1.3-6.7); Neutrophils Percent Auto 89.1 % (45.5-73.1); Platelet Count Result 288 k/mm3 (150-375); Red Blood Count 3.63 M/mm3 (4.2-5.4); Red Cell Distribution Width 13.4 % (11.5-14.5); White Blood Count 11.1 K/mm3 (4.5-10.0)
--- NOTE | 2023-11-16 13:57 | PC.NURSE ---
Eliceo Goode CNM notified of lab results and patient status. Okay to discharge.
[2023-11-17 14:56] LABS: Rapid Plasma Reagin Non-Reactive (NonReactive)
--- NOTE | 2023-11-18 13:59 | P.DS_ITS ---
DS: Admitting Diagnosis Discharge Date 11/16/23 Admitting Diagnosis IUFD DS: Discharge Diagnosis Discharge Diagnosis (1) IUFD (intrauterine ): Status: Acute OB - DS: Summary OB Procedures : None OB Procedures Intrapartum: Spontaneous Vag Delivery OB Procedures: : Other Peripartum Data Laceration Description: None Episiotomy description: None Procedures: Procedures Operation Date: 11/16/23 08:00 Actual Procedure Side Surgeon p D&C Suction and Sharp Not Applicable Choco Hensley MD Time Spent with Patient Time attestation: Total time spent providing and/or coordinating discharge services: DS: Data Data Completed and Pending Completed studies during hospitalization: Pending at discharge 11/16/23 00:29 Surgical [PTH] Routine 11/16/23 08:52 Surgical [PTH] Routine Labs on day of discharge: Labs from last 24 hours 11/15/23 07:02 RPR Non-reactive Parvovirus B19 IgG Intp 6.9 H Parvovirus B19 IgM Intp 0.2 Discharge Plan Discharge Consulting providers: Radha Goode; Hermelinda Rice; Sreekanth Nguyễn Discharging Clinician: Radha Goode Anticipated Discharge Date/Time: 11/16/23 14:30 Patient Disposition: Home, Self-Care Activity: as tolerated and pelvic rest Diet: as tolerated and regular Discharge Instructions: Follow-Up: Call your delivering provider's office for an appointment to be seen in: in a few weeks [phone] ACTIVITY: * Rest as much as possible. * Do not put anything into the vagina. No douching, tampons, or sexual activity until seen by physician. NOTIFY PHYSICIAN IF YOU HAVE ANY QUESTIONS OR IF ANY OF THE FOLLOWING SYMPTOMS OCCUR: * If your vaginal bleeding becomes foul smelling. * If your vaginal bleeding becomes more heavy than a period or if your bleeding changes from pink to bright red. However, you may pass an occasional walnut- sized clot once or twice * If you experience a sharp, shooting pain in you calves. DIET: * Eat regular, well-balanced meals. * Drink plenty of fluids daily. If , drink to thirst. Patient Instructions: Antibiotic Form Follow-up/Referrals: Radha Goode CNM [Certified Nurse Ethanol Quality Leader] - Date of admission: 11/15/23 06:38 Primary Care Provider: PHYSICIAN,BAND SALVAGER Admitting Provider: Choco Hensley Attending physician on admission: Choco Hensley Condition: Stable
[2023-11-18 17:00] LABS: CMV IgM Antibody <30.00 AU/mL (<30.00); Toxoplasma IgM Antibody <8.00 AU/mL (<8.00)
[2023-11-18 21:15] LABS: Lupus dRVVT Screen 35 sec (<=45); PTT-LA Screen 31 sec (<=40)
[2023-11-19 16:39] LABS: Toxoplasma IgG Antibody <7.20 IU/mL (<7.20)
== END 2023-11-16 14:26 | disposition home or self-care (01) | DRG 543 ==
PROVIDERS: Advanced Practice Midwife; Admitting Provider Obstetrics & Gynecology; Visit Provider Obstetrics & Gynecology
PROC: 10D17ZZ Extraction of Products of Conception, Retained, Via Natural or Artificial Opening (ICD-10-PCS; principal; 2023-11-16 08:00)
DX: O02.1 Missed abortion (principal); O24.112 Pre-existing type 2 diabetes mellitus, in pregnancy, second trimester; Z3A.16 16 weeks gestation of pregnancy; Z14.1 Cystic fibrosis carrier; O99.212 Obesity complicating pregnancy, second trimester; O73.0 Retained placenta without hemorrhage; Z87.891 Personal history of nicotine dependence
CPT/HCPCS: 36415; 80307; 82948; 83036; 84439; 84443; 85014; 85018; 85025; 85027; 85613; 85730; 86146; 86147; 86592; 86644; 86645; 86695; 86696; 86747; 86762; 86777; 86850; 86900; 86901; 88305; A9270; J0290; J2250; J2590; J3010; J7120

== ENCOUNTER 2024-12-04 00:01 | Emergency (ER) | payer OTHER, SELFPAY ==
[2024-12-04 00:03] VITALS: BP 106/94; PULSE 108; RESP 15; TEMP 36.6; O2SAT 100
--- OUTSIDE RECORDS SUMMARY | 2024-12-04 00:04 | XMS_ITS | Clinical Summary ---
Author Organization [facility] Address [address] [place] [address] Care Team Providers Care Outpatient Admitting Clerk Name Role Phone Unavailable Primary Care Provider Unavailabl e Source Comments [facility],non-owned Affiliates and Associated Physician Practices is amultiple site organization consisting of ambulatory clinics and hospital sitesin [place], [place], [place] and [place]. This disclosure is being madepursuant to the Care Everywhere program and may not contain all information available regarding this patient. Last updated 18.[facility] Unocoin Allergies No known active allergies Medications * Be aware that medications may not be up to date on this document. Alwaysverify current medications with the patient. Medication Sig Dispensed Refills Start Date End Date Status Zkqmwhkl-BcNgn-M A-DHA w/o A ( + DHA PO) Take 1 tablet by mouth once daily Active Progesterone 100 MG capsule Take 2 (two) capsules by mouth at bedtime Active aspirin (Aspirin) 81 MG chew tablet Take 1 (one) tablet by mouth once daily Active insulin glargine (Lantus/Semglee) 100 units/mL pen Inject 8 units at bedtime. Take dosages approximately same time each night. Increase dose as directed due to increasing insulin requirements during . Max total daily dose = 50u 15 mL 5 12/01/2024 Active insulin pen needle (Novofine) 32G X 6 MM MISCIndications: Type 2 diabetes mellitus affecting , antepartum (HCC) 1 (one) Each by Injection route once daily 100 Each 5 12/01/2024 Active insulin regular human (HumuLIN R; NovoLIN R) 100 UNIT/ML injectionIndicat ions:Type 2 Diabetes Mellitus Inject 5 (five) Units subcutaneously at bedtime Reasons: Type 2 Diabetes Discontinue d(Clinical Decision) Encounters Date Type Department Care Team Description 12/01/2024 1:00 PM IT SOFTWARE ENGINEER - 12/01/2024 11:59 PM IT SOFTWARE ENGINEER Hospital Encounter Pending sale to [facility] [address] [place] [id number] Don Ford MD Discharge Disposition: Home or Self Care from Last 3 Months Social History Tobacco Use Types Packs/Day Years Used Date Smoking Tobacco: Never Assessed Estimated Date of Delivery Comme nts Yes 05/18/2025 Based on Ultraso und Sex and Gender Information Value Date Recorded Sex Assigned at Not on file Gender Identity Not on file Sexual Orientation Not on file Last Filed Vital Signs Vital Sign Reading Time Taken Comments Blood Pressure 113/58 12/01/2024 1:33 PM IT SOFTWARE ENGINEER Pulse 97 12/01/2024 1:33 PM IT SOFTWARE ENGINEER Temperature - - Respiratory Rate - - Oxygen Saturation - - Inhaled Oxygen Concentration - - Weight 97.5 kg (215 lb) 12/01/2024 1:33 PM IT SOFTWARE ENGINEER Height 160 cm (5' 3 ) 12/01/2024 1:33 PM IT SOFTWARE ENGINEER Body Mass Index 38.09 12/01/2024 1:33 PM IT SOFTWARE ENGINEER Plan of Treatment Upcoming Encounters Date Type Department Care Team (Late st Contact Info) Description 12/29/2024 1:45 PM CDT Appointment Pending sale to [facility] [address] [place] [id number] Health Maintenance Due Date Last Done Comments PAP SMEAR 1986 HIV SCREENING 2001 HEPATITIS C SCREENING 10/01/2004 DTAP/TDAP/TD VACCINES (1 - Tdap) 2005 HEPATITIS B VACCINE (1 of 3 - 19+ 3-dose series) 2005 COVID-19 VACCINE (2023-2 5 season) 2024 INFLUENZA VACCINE (#1) 2024 08/16/2009 DEPRESSION SCREENING 09/29/2024 ZOSTER VACCINE (1 of 2) 2036 HIB VACCINE Aged Out No longer eligi ble based on patient's age to complete this topic HPV VACCINE Aged Out No longer eligi ble based on patient's age to complete this topic MENINGOCOCCAL (Group B) VACCINE Aged Out No longer eligible based on patient's age to complete this topic MENINGOCOCCAL VACCINE Aged Out No doreen emily eligible based on patient's age to complete this topic PNEUMOCOCCAL VACCINE Aged Out No long er eligible based on patient's age to complete this topic Respiratory Syncytial Virus (RSV) Vaccine Pt: or over 60 yrs (No Doses Required) Completed Procedures Procedure Name Priority Date/Time Associated Diagnosis Comments SONOGRAM - COMPLETE Routine 12/01/2024 1:43 PM IT SOFTWARE ENGINEER Antepartum multigravida of advanced maternal age (HCC) History of delivery, currently (HCC) Type 2 diabetes mellitus affecting , antepartum (HCC) History of recurrent miscarriages History of gestational hypertension from Last 3 Months Results * SONOGRAM - COMPLETE (12/01/2024 1:43 PM IT SOFTWARE ENGINEER) Linked Results Indication ======== Diabetes mellitus type II vs GDM-A2, Recurrent loss, AMA 39 years at the [facility] History ====== OB History 11. Para 5 [id number] 1. live 2004. Gest. age 39 w + 0 d. Weight 2,778 g. Sex of child: male. Details: 2. miscarriage 2005 3. live 2008. Gest. age 39 w + 0 d. Weight 2,948 g. Sex of child: male. Details: 4. live 2009. Gest. age 39 w + 0 d. Weight 3,345 g. Sex of child: female. Details: 5. live 2013. Gest. age 39 w + 0 d. Weight 2,664 g. Sex of child: female. Details: 6. elective termination 2018 7. miscarriage 2018 8. elective termination 2019. Details: D&C, Trisomy 21 9. live 2021. Gest. age 37 w + 6 d. Weight 2,636 g. Sex of child: female. Details: C/S; GHTN; GDM-A2 10. miscarriage 2023. Gest. age 16 w + 3 d. Details: D&C Lab Tests Test Date Result NIPT Low risk, Male Maternal Assessment Physical Exam Height 160 cm, 5 ft 3 in. Weight 98 kg, 215 lb. Initial weight 98 kg, 217 lb. BMI 38.09 kg/m . Initial BMI 38.44 kg/m . Weight gain -1 kg, -2 lb Method ====== Transabdominal ultrasound. View: Sufficient ========= Sab[place] . Number of fetuses: 1 Dating ====== Date Details Gest. age GRISEL Stated GRISEL 16 w + 0 d 05/18/2025 U/S 12/01/2024 based upon AC, BPD, Femur, HC 17 w + 0 d 05/11/2025 Assigned dating based on stated [facility], selected on 12/01/2024 16 w + 0 d 05/18/2025 General Evaluation Cardiac activity present. FHR 143 bpm. Presentation: transverse, head maternal right Placenta: Placental site: posterior Umbilical cord: Cord vessels: 3 vessel cord. Insertion site: normal insertion Amniotic fluid: Amount of AF: normal. MVP 4.8 cm Biometry BPD 35.3 mm 16w 6d 84% Hadlock HC 135.9 mm 17w 0d 88% Hadlock Cerebellum tr 16.5 mm 93% [place] AC 120.7 mm 17w 5d 95% Hadlock Femur 21.5 mm 16w 3d 63% Hadlock Humerus 22.0 mm 16w 5d 79% Alisa HC / AC 1.13 -/- 9% Hadlock Weight Calculation: EFW 181 g 96% Hadlock EFW (lb,oz) 0 lb 6 oz EFW by Hadlock ([id number]) accelerated Growth Overview Exam date GA BPD (mm) HC (mm) AC (mm) FL (mm) HL (mm) EFW (g) 12/01/2024 16w 0d 35.3 84% 135.9 88% 120.7 95% 21.5 63% 22 79% 181 96% Anatomy The following structures appear normal: Head / Neck Cranium. Choroid plexus. Extremities / Skeleton Arms. Legs. The following structures could not be adequately visualized: Abdomen Cord insertion. The following structures were visualized: Heart / Thorax 4-chamber view. Abdomen Stomach. Kidneys. Bladder. Maternal Structures Right Ovary Not visualized Left Ovary Not visualized Impression ========= * Sab[place] IUP at 16 weeks of gestation by stated EDC from early U/S * Referred to [facility] for obstetrical U/S & request for consult secondary to: Advanced maternal age (AMA) Diabetes mellitus, likely undiagnosed Type II, versus early GDM-A2 Pre- obesity Class II, BMI = 35.0-39.9 Prior section (C/S) x1 Prior complicated by congenital anomaly (Trisomy 21) Prior recurrent loss (RPL) * Today's ultrasound (U/S) findings: Living sabillon intrauterine fetus growth is in the upper normal range Amniotic fluid volume appears normal Placenta location appears normal Basic anatomic survey appears normal, but is incomplete COUNSELING & RECOMMENDATIONS (PLEASE SEE FULL CONSULT IN EPIC) * In my best medical opinion, I would advise: Regarding her history of RPL/RSAB, I would consider, if not previously done: Maternal karyotype (rule out translocation etc); if normal, then check paternal karyotype TSH & FT4 Antiphospholipid antibodies including: Lupus anticoagulant (LA) Anticardiolipin antibodies (aCL) Luow-goxt3-nzdoknj otein I antibodies (aB2GP1) Antiphosphatidylse rine antibodies Post-puerperium uterine cavity imaging (e.g. HSG, hysterosonogram, or MRI) Please also see the separate note from our [facility] Plating Tank Operator Apprentice Follow-up with our [facility] Plating Tank Operator Apprentice to review CBGs & DM management in 1 week Low-dose aspirin preeclampsia prophylaxis, increase to 162 mg/day I think it reasonable to stop progesterone Genetic amniocentesis was discussed & offered Follow-up assessment: Comprehensive anatomic survey & cervical length screening with MFM at 20 weeks Then U/S for growth & amniotic fluid volume & development every 4 weeks echocardiogram by Pediatric Cardiology at 24 weeks Start 2x-weekly NST and 1x-weekly BPP at 32 weeks Delivery planning (timing, mode, location): too early to determine at present it would be advised that she: Continue to monitor CBGs until they normalize Follow diet, exercise & try to achieve normal BMI If CBGs normalize, check fasting plasma glucose & 75-gram 2-hour OGTT every 1-3 years Follow-up ======== At 20 weeks for comprehensive anatomy Coding ====== Procedures [id number]: US Preg Uterus >[address] [facility] [employer] PACS Anatomical Region Laterality Modality Other 12/01/2024 1:43 PM IT SOFTWARE ENGINEER Radha Bhavik Goode LEAD CARPENTER-LINER REROLL TENDER [facility] ORDERABLES from Last 3 Months Olimpia Hawk Personal/Family Self 1985 OLIM[place] HAWK Personal/Family Spouse
--- OUTSIDE RECORDS SUMMARY | 2024-12-04 00:04 | XMS_ITS | Referral Summary ---
Author Organization [facility] Address [address] [place] [address] Care Team Providers Care Anesthesiology Crna Name Role Phone Unavailable Primary Care Provider Unavailabl e Source Comments [facility],non-owned Affiliates and Associated Physician Practices is amultiple site organization consisting of ambulatory clinics and hospital sitesin [place], [place], [place] and [place]. This disclosure is being madepursuant to the Care Everywhere program and may not contain all information available regarding this patient. Last updated 18.[facility] Encounters Date Type Department Care Team Description 12/01/2024 1:00 PM BLOCKER AUTOMATIC - 12/01/2024 11:59 PM BLOCKER AUTOMATIC Hospital Encounter [facility] [address] [place], [place] [id number] Don Ford MD Discharge Disposition: Home or Self Care from Last 3 Months Allergies No known active allergies Medications * Be aware that medications may not be up to date on this document. Alwaysverify current medications with the patient. Medication Sig Dispensed Refills Start Date End Date Status Gmcwjbwq-OzTts-D A-DHA w/o A ( + DHA PO) [...] Reasons: Type 2 Diabetes Discontinue d(Clinical Decision) Social History Tobacco Use Types Packs/Day Years [...] Comments Blood Pressure 113/58 12/01/2024 1:33 PM BLOCKER AUTOMATIC Pulse 97 12/01/2024 1:33 PM BLOCKER AUTOMATIC Temperature - - Respiratory Rate - - Oxygen Saturation - - Inhaled Oxygen Concentration - - Weight 97.5 kg (215 lb) 12/01/2024 1:33 PM BLOCKER AUTOMATIC Height 160 cm (5' 3 ) 12/01/2024 1:33 PM BLOCKER AUTOMATIC Body Mass Index 38.09 12/01/2024 1:33 PM BLOCKER AUTOMATIC Plan of Treatment Upcoming Encounters Date Type Department Care Team (Late st Contact Info) Description 12/29/2024 1:45 PM CDT Appointment [facility] [address] [place], [place] [id number] Procedures Procedure Name Priority Date/Time Associated Diagnosis Comments SONOGRAM - COMPLETE Routine 12/01/2024 1:43 PM BLOCKER AUTOMATIC Antepartum multigravida of advanced maternal age (HCC) History of delivery, currently (HCC) Type 2 diabetes mellitus affecting , antepartum (HCC) History of recurrent miscarriages History of gestational hypertension from Last 3 Months Results * SONOGRAM - COMPLETE (12/01/2024 1:43 PM BLOCKER AUTOMATIC) Linked Results Indication ======== Diabetes mellitus type II vs GDM-A2, Recurrent loss, AMA 39 years at the [facility] History ====== OB History 11. Para 5 [id number] 1. live 2004. Gest. age 39 w [...] 0 lb 6 oz EFW by Hadlock ([id number]) accelerated Growth Overview Exam date [place] BPD [...] EDC from early U/S * Referred to [facility] for obstetrical U/S & request for consult [...] including: Lupus anticoagulant (LA) Anticardiolipin antibodies (aCL) Iyto-jbvj1-ydkelmt otein I antibodies (aB2GP1) Antiphosphatidylse rine antibodies Post-puerperium uterine cavity imaging (e.g. HSG, hysterosonogram, or MRI) Please also see the separate note from our [facility] Nickel Operator Follow-up with our [facility] Nickel Operator to review CBGs & DM management in [...] weeks for comprehensive anatomy Coding ====== Procedures [id number]: US Preg Uterus >14 weeks [facility] [employer] PACS Anatomical Region Laterality Modality Other 12/01/2024 1:43 PM BLOCKER AUTOMATIC Radha Goode TELEMARKETING SUPERVISOR-AUXILIARY PLANT OPERATOR [facility] ORDERABLES from Last 3 Months Olimpia Hawk Personal/Family Self 1985 OLIMP[place] HAWK Personal/Family Spouse
--- OUTSIDE RECORDS SUMMARY | 2024-12-04 00:04 | XMS_ITS | Patient Health Summary ---
Author Organization [facility] Address [address] [place] [address] Care Team Providers Care Cook Relief Name Role Phone Unavailable Primary Care Provider Unavailabl e Note from [facility],non-owned Affiliates and Associated Physician Practices is amultiple site organization consisting of ambulatory clinics and hospital sitesin [place], [place], [place] and [place]. This disclosure is being madepursuant to the Care Everywhere program and may not contain all information available regarding this patient. Last updated 18.[facility] Allergies No known active allergies Medications * Be aware that medications may not be up to date on this document. Alwaysverify current medications with the patient. * Alfkjuvo-KoNab-KK-DHA w/o A ( + DHA PO) Take 1 tablet by mouth once daily * Progesterone 100 MG capsule Take 2 (two) capsules by mouth at bedtime * aspirin (Aspirin) 81 MG chew tablet Take 1 (one) tablet by mouth once daily * insulin glargine (Lantus/Semglee) 100 units/mL pen(Started 12/01/2024) Inject 8 units at bedtime. Take dosages approximately same time each night. Increase dose as directed due to increasing insulin requirements during . Max total daily dose = 50u 5 refills by 12/01/2025 * insulin pen needle (Novofine) 32G X 6 MM MISC(Started 12/01/2024) 1 (one) Each by Injection route once daily 5 refills by 12/01/2025 Ended Medications* insulin regular human (HumuLIN R; NovoLIN R) 100 UNIT/ML injection(Discontinued) Inject 5 (five) Units subcutaneously at bedtime Reasons: Type 2 Diabetes Social History Tobacco Use Types Packs/Day Years [...] Comments Blood Pressure 113/58 12/01/2024 1:33 PM QUAL RESEARCH MANAGER Pulse 97 12/01/2024 1:33 PM QUAL RESEARCH MANAGER Temperature - - Respiratory Rate - - Oxygen Saturation - - Inhaled Oxygen Concentration - - Weight 97.5 kg (215 lb) 12/01/2024 1:33 PM QUAL RESEARCH MANAGER Height 160 cm (5' 3 ) 12/01/2024 1:33 PM QUAL RESEARCH MANAGER Body Mass Index 38.09 12/01/2024 1:33 PM QUAL RESEARCH MANAGER Procedures * SONOGRAM - COMPLETE(Performed 12/01/2024) Performed for Antepartum multigravida of advanced maternal age (HCC), History of delivery,currently (HCC), Type 2 diabetes mellitus affecting , antepartum (HCC), History of recurrent miscarriages, History of gestational hypertension Results * SONOGRAM - COMPLETE (12/01/2024 1:43 PM QUAL RESEARCH MANAGER) Linked Results Indication ======== Diabetes mellitus type II vs GDM-A2, Recurrent loss, AMA 39 years at the [facility] History ====== OB History 11. Para 5 [id number] 1. live 2004. Gest. age 39 w [...] 0 lb 6 oz EFW by Hadlock ([id number]) accelerated Growth Overview Exam date [place] BPD [...] from early U/S * Referred to [facility] for obstetrical U/S & request for [...] including: Lupus anticoagulant (LA) Anticardiolipin antibodies (aCL) Bgrq-ooug3-hewxqwr otein I antibodies (aB2GP1) Antiphosphatidylse rine antibodies Post-puerperium uterine cavity imaging (e.g. HSG, hysterosonogram, or MRI) Please also see the separate note from our [facility] Apple Press Operator Follow-up with our [facility] Apple Press Operator to review CBGs & DM management [...] weeks for comprehensive anatomy Coding ====== Procedures [id number]: US Preg Uterus >14 weeks [facility] [employer] PACS Anatomical Region Laterality Modality Other 12/01/2024 1:43 PM QUAL RESEARCH MANAGER Radha Goode APRN-SHAYY M ORDERABLES
--- OUTSIDE RECORDS SUMMARY | 2024-12-04 00:04 | XMS_ITS | Clinical Summary ---
Author Organization [facility] Address [address] [place] [id number] Care Team Providers Care Core Placer Name Role Phone Kenneth Salcedo MD Primary Care Provider [phone] Social History Tobacco Use Types Packs/Day Years Used Date Smoking Tobacco: Never Assessed Comments Unknown Sex and Gender Information Value Date Recorded Sex Assigned at Not on file Legal Sex Female 7:53 PM CDT Gender Identity Not on file Sexual Orientation Not on file Plan of Treatment Health Maintenance Due Date Last Done Comments Cervical Cancer Screening Pa p Smear (Age 30 to 64) Every 3 Years 1986 Annual Physical 1989 Hepatitis C 2004 DTaP, Tdap and Td Vaccines ( 1 - Tdap) 2005 Hepatitis B Vaccines (1 of 3 - 19+ 3-dose series) 2005 Cervical Cancer Screening Pa p with HPV Testing (Age 30 to 64) Every 5 Years 2016 Cervical Cancer Screening with HPV 2016 COVID-19 Vaccine (2023-2 5 season) 2024 Influenza Adult (#1) 2024 HPV Vaccines Aged Out No longer eligi ble based on patient's age to complete this topic Meningococcal B Vaccine Aged Out No l onger eligible based on patient's age to complete this topic Meningococcal Vaccine Aged Out No doreen emily eligible based on patient's age to complete this topic Pneumococcal Vaccine: Pediat rics (0 to 5 Years) and At-Risk Patients (6 to 64 Years) Aged Out No longer eligible b ased on patient's age to complete this topic RSV Immunizations Under 20 Months Aged Out No longer eligible based on patient's age to complete this topic Care Teams Core Placer Relationship Specialty Start Date End Date Kenneth Salcedo MD [address] [place] [id number] [facility] - General 03/06/14
--- OUTSIDE RECORDS SUMMARY | 2024-12-04 00:05 | XMS_ITS | Data Portability ---
Author Organization [facility] Address [address] [place] [address] Care Team Providers Care Web Offset Press Feeder Name Role Phone SERENA ARECHIGA Primary Care Provider [phone] Assessment Encounter Date Assessment Date Assessment LastModified by Organization Details LastModified Time 11/01/2020 11/01/2020 R>L hand pain with lifting, back pain. Wakes up from numbness and stinging on the right hand. Multiple miscarriages in 2019. [email or web address] Not available 11/05/2020 20:09:01 01/30/2021 01/30/2021 fax note [email or web address] Not available 12/2020 12:24:40 01/31/2021 01/31/2021 fax note [email or web address] Not available 01/2021 10:44:17 03/05/2022 03/05/2022 Today we discussed x-ray results as well as etiology and treatment options. Patient is to begin stretching, icing, supportive shoes. I prescribed a night splint to be worn as directed. She is to return to clinic in 6 weeks. We discussed possible future injections when she is no longer . [email or web address] Not available 03/05/2022 10:57:32 Plan of Treatment Reminders Order Date Submit Date Provider Last Modified By Organization Details Last Modified Time Details Appointments None recorded. Lab lipid panel, serum 2021 [facility], 2022 Jennifer Brandt, [address] [address], [place], [address], 09:13:56 CMP, serum or plasma 2021 [facility], 2022 Jennifer Brandt, [address], [place], [address], 09:13:55 TSH, ultra-sens itive, serum 2021 022 [facility], 2022 Jennifer Brandt, [address], [place], [address], 09:13:57 CBC w/ auto diff 2021 022 [facility], 2022 Jennifer Brandt, [address], [place], [address], 09:13:55 HbA1c (hemoglobi n A1c), blood 2021 022 [facility], 2022 Jennifer Brandt, [address], [place], [address], 09:13:57 CMP, serum or plasma 2020 021 [facility], 2022 Jennifer Brandt, [address], [place], [address], 16:04:07 lipid panel, serum 2020 021 [facility], 2022 Jennifer Brandt, [address], [place], [address], 16:04:08 CBC w/ auto diff 2020 021 [facility], 2022 Jennifer Brandt, [address], [place], [address], 16:04:07 vitamin D, 25-hydroxy , total, serum 2020 021 [facility], 2022 Jennifer Brandt, [address], [place], [address], 16:04:08 TSH, ultra-sens itive, serum 2020 021 [facility], 20[facility] Jennifer Brandt, [address], [place], [address], 16:04:08 vitamin B12 + folate, serum or blood 2020 021 [facility], 2022 Jennifer Brandt, [address], [place], [address], 16:04:08 iron + total iron-farzad ng capacity (TIBC), serum 2020 021 [facility], 2022 Jennifer Brandt, [address], [place], [address], 16:04:07 Referral None recorded. Procedures None recorded. Surgeries None recorded. Imaging XR, foot, 3 or more view 2021 022 [facility] (Imaging), [address] [place] [address] [address], [place], [address], 21:02:38 Medication Orders meloxicam 15 mg tablet 2020 021 elder Crane [id number], [address] [place], [address], 20:08:45 Patient TargetsNo targets recorded. Patient Instructions Encounter Date Encounter Id Patient Instructions Last Modified By Organization Details Last Modified Time 01/30/2021 [id number] upper respirator y infection (cold): care instructions Not available 01/30/2021 13:21:49 viral respirator y infection: care instructions Not available 01/30/2021 13:21:49 01/31/2021 [id number] upper respirator y infection (cold): care instructions Not available 01/31/2021 10:44:23 viral respirator y infection: care instructions Not available 01/31/2021 10:44:23 Reason for Referral None Reported. Results Created Date Observation Date Name Description Value Unit Range Abnormal Flag Note LastModifiedBy Organization Detail LastModifiedTime 02/05/20 22 02/05/2022 CBC WITH DIFFE RENTI AL/PL ATELE T WBC 7.3 x10e3 /uL 3.4-10 .8 Not Available [facility] ([facility]) [address], [place], [address], 02/05/2022 09:13:55 02/05/20 22 02/05/2022 CBC WITH DIFFE RENTI AL/PL ATELE T RBC 4.21 x10e6 /uL 3.77-5 .28 Not Available [facility] ([facility]) [address], [place], [address], 02/05/2022 09:13:55 02/05/20 22 02/05/2022 CBC WITH DIFFE RENTI AL/PL ATELE T hemoglobin 12.4 g/dL 11.1-1 5.9 Not Available [facility] ([facility]) [address], [place], [address], 02/05/2022 09:13:55 02/05/20 22 02/05/2022 CBC WITH DIFFE RENTI AL/PL ATELE T hematocrit 38.4 % 34.0-4 6.6 Not Available [facility] ([facility]) [address], [place], [address], 02/05/2022 09:13:55 02/05/20 22 02/05/2022 CBC WITH DIFFE RENTI AL/PL ATELE T MCV 91 fL 79-97 Not Available [facility] ([facility]) [address] [place], [address], 02/05/2022 09:13:55 02/05/2002/05/2022 CBC WITH DIFFE RENTI AL/PL ATELE T MCH 29.5 pg 26.6-3 3.0 Not Available [facility] ([facility]) [address] [place], [address], 02/05/2022 09:13:55 02/05/20 22 02/05/2022 CBC WITH DIFFE RENTI AL/PL ATELE T MCHC 32.3 g/dL 31.5-3 5.7 Not Available [facility] ([facility]) [address], [place], [address], 02/05/2022 09:13:55 02/05/20 22 02/05/2022 CBC WITH DIFFE RENTI AL/PL ATELE T RDW 13.1 % 11.7-1 5.4 Not Available [facility] ([facility]) [address], [place], [address], 02/05/2022 09:13:55 02/05/20 22 02/05/2022 CBC WITH DIFFE RENTI AL/PL ATELE T platelets 377 x10e3 /uL 150-45 0 Not Available [facility] ([facility]) [address], [place], [address], 02/05/2022 09:13:55 02/05/20 22 02/05/2022 CBC WITH DIFFE RENTI AL/PL ATELE T neutrophils 60 % not estab. Not Available [facility] ([facility]) [address], [place], [address], 02/05/2022 09:13:55 02/05/20 22 02/05/2022 CBC WITH DIFFE RENTI AL/PL ATELE T lymphs 29 % not estab. Not Available [facility] ([facility]) [address], [place], [address], 02/05/2022 09:13:55 02/05/20 22 02/05/2022 CBC WITH DIFFE RENTI AL/PL ATELE T monocytes 8 % not estab. Not Available [facility] ([facility]) [address], [place], [address], 02/05/2022 09:13:55 02/05/20 22 02/05/2022 CBC WITH DIFFE RENTI AL/PL ATELE T eos 2 % not estab. Not Available [facility] ([facility]) [address], [place], [address], 02/05/2022 09:13:55 02/05/20 22 02/05/2022 CBC WITH DIFFE RENTI AL/PL ATELE T basos 1 % not estab. Not Available [facility] ([facility]) [address], [place], [address], 02/05/2022 09:13:55 02/05/20 22 02/05/2022 CBC WITH DIFFE RENTI AL/PL ATELE T immature cells HOOKER INSPECTOR Not Available [facility]) [address], [place], [address], 02/05/2022 09:13:55 02/05/20 22 02/05/2022 CBC WITH DIFFE RENTI AL/PL ATELE T neutrophils (absolute) 4.4 x10e3 /uL 1.4-7. 0 Not Available [facility] ([facility]) [address] [place], [address], 02/05/2022 09:13:55 02/05/20 22 02/05/2022 CBC WITH DIFFE RENTI AL/PL ATELE T lymphs (absolute) 2.1 x10e3 /uL 0.7-3. 1 Not Available [facility] ([facility]) [address] [place], [address], 02/05/2022 09:13:55 02/05/20 22 02/05/2022 CBC WITH DIFFE RENTI AL/PL ATELE T monocytes(ab solute) 0.6 x10e3 /uL 0.1-0. 9 Not Available [facility] ([facility]) [address] [place], [address], 02/05/2022 09:13:55 02/05/20 22 02/05/2022 CBC WITH DIFFE RENTI AL/PL ATELE T eos (absolute) 0.1 x10e3 /uL 0.0-0. 4 Not Available [facility] ([facility]) [address] [place], [address], 02/05/2022 09:13:55 02/05/20 22 02/05/2022 CBC WITH DIFFE RENTI AL/PL ATELE T baso (absolute) 0.0 x10e3 /uL 0.0-0. 2 Not Available [facility] ([facility]) [address] [place], [address], 02/05/2022 09:13:55 02/05/20 22 02/05/2022 CBC WITH DIFFE RENTI AL/PL ATELE T immature granulocytes 0 % not estab. Not Available [facility] ([facility]) [address] [place], [address], 02/05/2022 09:13:55 02/05/20 22 02/05/2022 CBC WITH DIFFE RENTI AL/PL ATELE T immature grans (abs) 0.0 x10e3 /uL 0.0-0. 1 Not Available [facility] ([facility]) [address] [place], [address], 02/05/2022 09:13:55 02/05/20 22 02/05/2022 CBC WITH DIFFE RENTI AL/PL ATELE T NRBC HOOKER INSPECTOR Not Available [facility] ([facility]) [address] [place], [address], 02/05/2022 09:13:55 02/05/20 22 02/05/2022 CBC WITH DIFFE RENTI AL/PL ATELE T hematology comments: HOOKER INSPECTOR Not Available [facility]) [address] [place], [address], 02/05/2022 09:13:55 02/05/20 22 02/05/2022 COMP. METAB OLIC PANEL (14) glucose 80 mg/dL 65-99 Not Available [facility] ([facility]) [address] [place], [address], 02/05/2022 09:13:55 02/05/20 22 02/05/2022 COMP. METAB OLIC PANEL (14) BUN 24 mg/dL 6-20 above high normal Not Available [facility] ([facility]) [address] [place], [address], 02/05/2022 09:13:55 02/05/20 22 02/05/2022 COMP. METAB OLIC PANEL (14) creatinine 0.70 mg/dL 0.57-1 .00 Not Available [facility] ([facility]) [address] [place], [address], 02/05/2022 09:13:55 02/05/20 22 02/05/2022 COMP. METAB OLIC PANEL (14) eGFR 116 mL/mi n/1.7 3 >59 Not Available [facility] ([facility]) [address] [place], [address], 02/05/2022 09:13:55 02/05/20 22 02/05/2022 COMP. METAB OLIC PANEL (14) BUN/creatini ne ratio 34 9-23 above high normal Not Available [facility] ([facility]) [address] [place], [address], 02/05/2022 09:13:55 02/05/20 22 02/05/2022 COMP. METAB OLIC PANEL (14) sodium 141 mmol/ L 134-14 4 Not Available [facility] ([facility]) [address] [place], [address], 02/05/2022 09:13:55 02/05/20 22 02/05/2022 COMP. METAB OLIC PANEL (14) potassium 4.5 mmol/ L 3.5-5. 2 Not Available [facility] ([facility]) [address] [place], [address], 02/05/2022 09:13:55 02/05/20 22 02/05/2022 COMP. METAB OLIC PANEL (14) chloride 106 mmol/ L 96-106 Not Available [facility] ([facility]) [address] [place], [address], 02/05/2022 09:13:55 02/05/20 22 02/05/2022 COMP. METAB OLIC PANEL (14) carbon dioxide, total 20 mmol/ L 20-29 Not Available [facility] ([facility]) [address] [place], [address], 02/05/2022 09:13:55 02/05/20 22 02/05/2022 COMP. METAB OLIC PANEL (14) calcium 8.9 mg/dL 8.7-10 .2 Not Available [facility] ([facility]) [address] [place], [address], 02/05/2022 09:13:55 02/05/20 22 02/05/2022 COMP. METAB OLIC PANEL (14) protein, total 6.9 g/dL 6.0-8. 5 Not Available [facility] [address] [place], [address], 02/05/2022 09:13:55 02/05/20 22 02/05/2022 COMP. METAB OLIC PANEL (14) albumin 4.4 g/dL 3.8-4. 8 Not Available [facility] ([facility] [address] [place], [address], 02/05/2022 09:13:55 02/05/20 22 02/05/2022 COMP. METAB OLIC PANEL (14) globulin, total 2.5 g/dL 1.5-4. 5 Not Available [facility] ([facility]) [address] [place], [address], 02/05/2022 09:13:55 02/05/20 22 02/05/2022 COMP. METAB OLIC PANEL (14) A/G ratio 1.8 1.2-2. 2 Not Available [facility] ([facility]) [address], [address], 02/05/2022 09:13:55 02/05/20 22 02/05/2022 COMP. METAB OLIC PANEL (14) bilirubin, total <0.2 mg/dL 0.0-1. 2 Not Available [facility] ([facility]) [address], [address], 02/05/2022 09:13:55 02/05/20 22 02/05/2022 COMP. METAB OLIC PANEL (14) alkaline phosphatase 129 IU/L 44-121 above high normal Not Available [facility] ([facility]) [address], [address], 02/05/2022 09:13:55 02/05/20 22 02/05/2022 COMP. METAB OLIC PANEL (14) AST (SGOT) 13 IU/L 0-40 Not Available [facility] ([facility]) [address], [address], 02/05/2022 09:13:55 02/05/20 22 02/05/2022 COMP. METAB OLIC PANEL (14) ALT (SGPT) 13 IU/L 0-32 Not Available [facility] [address], [address], 02/05/2022 09:13:55 02/05/20 22 02/05/2022 LIPID PANEL cholesterol, total 132 mg/dL 100-19 9 Not Available [facility] ([facility]) [address] [place], [address], 02/05/2022 09:13:56 02/05/20 22 02/05/2022 LIPID PANEL triglyceride s 149 mg/dL 0-149 Not Available [facility]) [address] [place], [address], 02/05/2022 09:13:56 02/05/20 22 02/05/2022 LIPID PANEL HDL cholesterol 45 mg/dL >39 Not Available [facility] [address] [place], [address], 02/05/2022 09:13:56 02/05/20 22 02/05/2022 LIPID PANEL VLDL cholesterol nadeem 26 mg/dL 5-40 Not Available [facility] [address] [place], [address], 02/05/2022 09:13:56 02/05/20 22 02/05/2022 LIPID PANEL LDL chol calc ([facility]) 61 mg/dL 0-99 Not Available [facility] [address] [place], [address], 02/05/2022 09:13:56 02/05/2002/05/2022 LIPID PANEL comment: HOOKER INSPECTOR Not Available [facility]) [address] [place], [address], 02/05/2022 09:13:56 02/05/2002/05/2022 HEMOG LOBIN A1C hemoglobin A1C 5.9 % 4.8-5. 6 above high normal Predi abete s: 5.7 - 6.4 Diabe hermila: >6.4 Glyce roz contr ol for adult s with diabe hermila: <7.0 Not Available [facility] ([facility]) [address] [place], [address], 02/05/2022 09:13:56 02/05/2002/05/2022 TSH RFX ON ABNOR MAL TO FREE T4 TSH 3.730 uIU/m L 0.450- 4.500 Not Available [facility] ([facility]) [address] [place], [address], 02/05/2022 09:13:57 02/18/20 22 02/17/2022 XR, foot, 3 or more view No observ ation record ed. [address], [place], [address], 02/28/2022 14:49:23 Result Notes None recorded. Problems No Known Problems Procedures Surgical History Date Name Laterality Status Provider Name and Address Organization Details Recorded Time 0 Date of Last Pap Smear completed Noelle Lane RN [facility] 11/01/2020 15:43:10 0 Date of Last Mammogram completed Noelle Lane RN [facility] 11/01/2020 15:42:47 Dilation and Curettage completed Noelle Lane RN [facility] 11/01/2020 15:45:01 Imaging Results Imaging Date Name Status LastModified by Organiz ation Details LastModified Time 02/17/2022 XR, foot, 3 or more view completed [address], [place], [address], 02/28/2022 14:49:23 Procedure Notes None recorded. Medical Equipment None Reported. Allergies No known drug allergies Medications Name Sig Start Date Stop Date Status Note LastModified by Organization Details LastModified Time ibuprofen 800 mg tablet 11/01 completed Not Available Not Available Not Available hydrocodone 5 mg-acetamin ophen 325 mg tablet TAKE 1 TABLET BY MOUTH EVERY 4 - 5 HOURS NEEDED FOR MODERATE PAIN active Not Available Not Available No t Available meloxicam 15 mg tablet TAKE 1 TABLET BY MOUTH EVERY DAY active Not Available Not Available No t Available tramadol 50 mg tablet 11/01 completed Not Available Not Available Not Available terconazole 80 mg vaginal suppository INSERT 1 SUPPOSITO RY PER VAGINA EVERY DAY FOR 3 DAYS 11/01 completed Not Available Not Available Not Available Perfect[employer]uch Ultra Test strips USE TO TEST BLOODSUGA R 4 TIMES A DAY--FAST ING AND 1 HR AFTER BREAKFAST , LUNCH, AND DINNER active Not Available Not Available No t Available Humulin N NPH U-100 Insulin (isophane susp) 100 unit/mL subcutaneou s INJECT 10 UNITS SUBCUTANE OUSLY DAILY AT BEDTIME active Not Available Not Available No t Available progesteron e micronized 200 mg capsule TAKE 1 CAPSULE BY MOUTH EVERY DAY DIRECTED active Not Available Not Available No t Available docusate sodium 100 mg capsule TAKE 1 CAPSULE BY MOUTH TWICE A DAY NEEDED FOR CONSTIPAT ION active Not Available Not Available No t Available nystatin 100,000 unit/gram topical powder APPLY TO AFFECTED AREA TWICE A DAY active Not Available Not Available No t Available ibuprofen 600 mg tablet TAKE 1 TABLET BY MOUTH EVERY 8 HOURS NEEDED active Not Available Not Available No t Available norethindro ne (contracept celina) 0.35 mg tablet active Not Available Not Available No t Available nitrofurant oin monohydrate /macrocryst als 100 mg capsule TAKE 1 CAPSULE BY MOUTH EVERY 12 HOURS FOR 7 DAYS 02/04 completed Not Available Not Available Not Available 19 (with docusate) 29 mg iron-1 mg-25 mg tablet 11/01 completed Not Available Not Available Not Available TechLITE Insulin Syringe (half unit) 0.3 mL 31 gauge x 5/16 USE DIRECTED AT BEDTIME active Not Available Not Available No t Available OneTouch Ultra2 Meter USE DIRECTED active Not Available Not Available No t Available OneTouch Delica Plus Lancet 33 gauge USE TO TEST BLOOD SUGAR 4 TIMES PER DAY FASTING, AND 1 HR AFTER BREAKFAST , LUNCH, AND DINNER active Not Available Not Available No t Available Vitals Date Recorded Body weight Body mass index (BMI) Body height Heart rate Oxygen saturation Oxygen saturation in Arterial blood by Pulse oximetry Systolic blood pressure Diastolic blood pressure Provider Name and Address Organization Details Last Updated DateTime 2 84961.8 1 g 37 kg/m2 160.02 cm 94 /min 98 % 98 % 118 mm[Hg] 70 mm[Hg] Norma Calles MA [place] - [facility] 2 10:32:32 Date Recorded Body height Body mass index (BMI) Body weight Heart rate Body temperature Systolic blood pressure Diastolic blood pressure Provider Name and Address Organization Details Last Updated DateTime 2 160.02 cm 40 kg/m2 666608. 88 g 70 /min 97.5 [degF] 109 mm[Hg] 38 mm[Hg] YOSELYN Murillo - [facility] 10:24:23 Social History Question Answer Notes LastModified by Organizat ion Details LastModified Time Tobacco Smoking Status Former Smoker Noelle Lane RN [facility], [facility] 11/01/2020 15:44:00 Do You Have An Advance Directive? No Information not available 03/05/2022 What Is Your Level Of Alcohol Consumption? None Information not available 01/30/2021 In The 14 Days Before Symptom Onset, Have You Had Close Contact With A Laboratory-confir med COVID-19 While That Case Was Ill? No Information not available 01/30/2021 In The 14 Days Before Symptom Onset, Have You Had Close Contact With A Person Who Is Under Investigation For COVID-19 While That Person Was Ill? No Information not available 01/30/2021 Do You Or Have You Ever Used E-cigarettes Or Vape? Never Used Electronic Cigarettes Information not available 11/01/2020 Do You Have A Medical Power Of Principal Account Clerk? No Information not available 03/05/2022 What Was The Date Of Your Most Recent Tobacco Screening? 03/05/2022 Information not available 03/05/2022 How Many Years Have You Smoked Tobacco? 2 Information not available 11/01/2020 Sex: Female Functional Status None recorded. Mental Status None recorded. Family History Relationship Description Onset Age of this Age Resolved Age Notes LastModified by Organization Details LastModified Time Father No current problems or disability [email or web address] Not available 11/01 15:43:50 Mother No current problems or disability [email or web address] Not available 11/01 15:43:50 Medical History Condition Response Coronary Artery Disease N Other N Atrial Fibrillation N High Blood Pressure N Depression Y COPD N Blood Clots N Anxiety Disorder Y Muscle, Joint, or Bone Problems Y Acid Reflux (GERD) N Cancer N Stroke N Headaches Y Kidney or Bladder Problems N Eating Disorder N Skin Problems N Asthma N Allergies Y Substance Abuse N Hepatitis N ADHD N High Cholesterol N Liver Disease N Schizophrenia N Thyroid Problems N GI Problems N Anemia N Heart Attack ([place]) N Diabetes N Seizures/Epilepsy N Osteoporosis N Heart Failure N Gynecological History Statement/Question Response Date of Last Mammogram 04/29/2020 Flow Heavy Date of LMP 12/30/2021 Menses Monthly Y Date of Last Pap Smear 06/29/2020 Duration of Flow (days) 5 Current Control Method Condoms Age at First Child 18 LMP Approximate Obstetrics History GPAL:G 4 P 4 0 0 4 Type Value Multiple Births 0 Full Term 4 Induced 0 Spontaneous 0 Premature 0 Living 4 Ectopics 0 Total 4 Past Encounters Encounter ID Performer Location Encounter Start Date Encounter Closed Date Diagnosis/Indication Diagnosis SNOMED-CT Code Diagnosis ICD10 Code Diagnosis Note [id number] America Finch, [facility] [address] [place] [address] 05/04/2018 11:39:02 05/12/2018 16:08:32 History and physical examination, pre-employment 468484308 Z02.1 negative assessment . no restrictio ns indicated. denies sickle cell, asthma, & heart disease. [id number] Serena Arechiga MD [facility] [address] [place] [address] 11/01/2020 08:06:14 11/06/2020 10:23:40 Bilateral carpal tunnel syndrome 2666994414 0358634 G56.03 Adult heal th examination 342844430 Z00.00 Recurrent miscarriage 10 4469396 N96 Multiple miscarriag es in 2019. Patient is under the care of her gynecologi st. Depression screening 171 278726 Z13.31 patient does not appear to be significan tly depressed. [id number] JERRY ONEAL [facility] [address] [place] [address] 01/30/2021 10:06:40 01/30/2021 17:49:47 Upper respiratory infection 04217651 J06.9 patient with fever, dry cough, back pain presents for note for work. waiting on COVID results she had done at [facility] on Friday. her daughter tested negative but now all of her kids have fevers and are sick. - note - ER if sob, cant breath due to excessive coughing, chest pain, fever>103 not controlled by medication . - hydrate - otc medication s - f/u prn [id number] JERRY ONEAL [facility] [address] [place] [address] 01/31/2021 10:32:21 01/31/2021 13:45:21 Upper respiratory infection 27790546 J06.9 patient with fever, dry cough, back pain presents for note for work. waiting on COVID results she had done at [facility] on Friday. her daughter tested negative but now all of her kids have fevers and are sick. - note - ER if sob, cant breath due to excessive coughing, chest pain, fever>103 not controlled by medication . - hydrate - otc medication s - f/u prn [id number] JERRY ONEAL [facility] [address] [place] [address] 02/04/2022 10:24:04 02/05/2022 10:47:54 Pain in right foot 6660475586 26236 M79.671 right foot pain>1 year. worse after periods of rest upon standing - NSAID when appropriat e- freeze water bottle and roll foot 15 mins 2x per day- avoid flip flops and invest in good support shoes- if no improvemen t f/u Pain of le ft knee region 9322450133 39514 M25.562 anterior lateral knee pain. no weakness or falls. - better shoe support- avoid putting all the weight on this side (due to right foot pain) Gestationa l diabetes mellitus 75780284 O24.419 dx while . re-checkin g Obesity 986407253 E66.9 BMI 37 , breast feeding. continue healthy diet. [id number] Mirza Infante DPM [facility] [address] [place] [address] 03/05/2022 10:11:00 03/12/2022 09:54:56 Plantar fasciitis of left foot 4809291131 4023248 M72.2 Calcaneal spur of right foot 2502068713 13693 M77.31 Calcaneal spur of left foot 7598506480 21184 M77.32 Pain in left foot 630567 3823 52464 M79.672 Pain in right foot 24799 80909 07285 M79.671 Health Concerns Section Related Observation LastModified by Organization Detai ls LastModified Time None Recorded Concern Status LastModified by Organization Details LastModified Time None Recorded Advance Directives Directive N: Payers Encounter Date Sequence Insurance Name Policy Number Policy Saini Covered Member ID Saini Member ID Guarantor Name 11/01/2020 1 [facility] (MEDICAID HMO) [id number] Olimpia Wang [id number] Olimpia Wang 01/30/2021 1 [facility] (MEDICAID HMO) [id number] Olimpia Wang [id number] Olimpia Wang 01/31/2021 1 [facility] (MEDICAID HMO) [id number] Olimpia Wang [id number] Olimpia Wang 02/04/2022 1 [facility] (MEDICAID HMO) [id number] 0003 Olimpia Wang [id number] Olimpia Wang 03/05/2022 1 [facility] (MEDICAID HMO) [id number] 0003 Olimpia Wang [id number] Olimpia Wang Notes Date Note Type Note Provider Name and Address Organization Details Recorded Time 11/01/2020 text/html Peripheral NeuropathyReported bypatient.Hand Dominance:right Location:numbness;tingl ing;weak limbs; both hands, forearms, and upper arms Quality:cramping Severity:moderate Onset/Timing:worse; gradual onset Context:no change in mood; no change in sleep Associated Symptoms:no difficulty climbing stairs; no difficulty in the dark; no difficulty walking on uneven surfaces; does not stumble; does not fall; no foot dragging; no periodic limb movement in sleep (PLMS); no restless legs; no tremors; no dizziness; no blurred vision; no urinary loss of control; no low back pain;fatigue;weakness;l oss of muscle mass;drops items Serena Arechiga MD Attn: Accounting,[address] [place], [address], [facility] 11/05/2020 20:19:19 01/30/2021 text/html Upper Respirator y SymptomsReported bypatient.Location:ches t; throat Quality:dry cough Severity:moderate Context:sick contact(kids) Modifying Factors:OTC medication; salt water gargles Associated Symptoms:no sputum production; no shortness of breath; no wheezing;fever Patient presents for one week of URI started last week. she got sick over weekend and tested for COVID on friday. She has not gotten results yet from [facility]. called off twice for fever, coug. called [facility] and she needs note. fever, sore throat, ,dry cough, lower back pain, YANES, fever, eyes pain. JERRY ONEAL Attn: Accounting,[address] [facility], [place], [address], [facility] 01/30/2021 13:22:57 01/31/2021 text/html Upper Respirator y SymptomsReported bypatient.Location:ches t; throat Quality:dry cough Severity:moderate Context:sick contact(kids) Modifying Factors:OTC medication; salt water gargles Associated Symptoms:no sputum production; no shortness of breath; no wheezing;fever Patient presents for one week of URI started last week. she got sick over weekend and tested for COVID on friday. results are negative. called off twice for fever, cough. current symptoms are fever 100.4-101.8, sore throat, ,dry cough, lower back pain, YANES, fever, eyes pain. denies sob, chest pain. JERRY ONEAL Attn: Accounting,[address] [facility], [place], [address], [facility] 01/31/2021 10:46:55 02/04/2022 text/html KneeReported bypatient.Location:left Quality:aching; frequent; not changing Duration:1 years Timing:chronic Context:atraumatic Alleviating Factors:position change; elevation Aggravating Factors:standing; walking; carrying; upstairs Associated Symptoms:no tingling;weakness Previous Surgery:none Prior Imaging:none Previous Injections:none Previous PT:none Olimpia is a 36 YO F pmhxz gestational DM, obesity here for foot and knee pain right heel: daily and worse when standing up/ sit or stand too long. sear ting pain. for pain relief she takes biofreeze. She is breast feeding so avoids medication. cold/hot compress helps some left knee since > 1 year. worse at night and with walking. pain is mostly constant. started when she was about 4 months . baby is 4 months old now and pain continues. avoid medication due to breast feeding JERRY ONEAL Attn: Accounting,[address] [facility], [place], [address], [facility] 02/04/2022 11:06:11 03/05/2022 text/html Patient presents to clinic for pain to the bottom of the right heel. She states that she has a 5-month-old daughter and during her the heels became aggravated and painful. She relates pain after periods of inactivity described as sharp and shooting. Patient states that she is currently breast feeding. She did have x-rays taken at [facility]. Mirza Infante DPM [address] [place], [address], [facility] 03/05/2022 10:59:40 OBGyn Episode No OBEpisode recorded.
--- OUTSIDE RECORDS SUMMARY | 2024-12-04 00:05 | XMS_ITS | Data Portability ---
Author Organization [facility] [place] Address [address] [place] [address] Assessment Encounter Date Assessment Date Assessment LastModified by Organization Details LastModified Time 12/01/2024 12/01/2024 Patient is __20_weeks . Discussed plan. Not available 12/01/2024 11:10:43 Plan of Treatment Reminders Order Date Submit Date Provider Last Modified By Organization Details Last Modified Time Details Appointments xANY 2024 09:15A M RN SCHEDULE Not available Not available Not available xANY 2024 09:15A M RN SCHEDULE Not available Not available Not available xANY 2024 09:15A M RN SCHEDULE Not available Not available Not available OB ROUTINE 2024 09:45A M Radha Goode CNM Not available Not available Not available Lab None recorded. Referral None recorded. Procedures None recorded. Surgeries None recorded. Imaging US, obstetric , nuchal transluce ncy 2024 025 [email or web address] [place], [facility] [address], [address], [place], [address], 11/04/2024 19:35:34 Medication Orders None recorded. Patient TargetsNo targets recorded. Patient InstructionsNo instructions recorded. Reason for Referral None Reported. Results Created Date Observation Date Name Description Value Unit Range Abnormal Flag Note LastModifiedBy Organization Detail LastModifiedTime 10/27/19 25 10/27/2024 [UNIT Y] ANEUP LOIDY NIPT fraction 9.2% normal Not Available Anne newell [address], [place], [address], 10/27/2024 23:55:58 10/27/19 25 10/27/2024 [UNIT Y] ANEUP LOIDY NIPT 22Q11.2 microdeletio n LOW RISK <1 in 10,000 normal Not Available [facility] [address] [facility], [place], [address], 10/27/2024 23:55:58 10/27/19 25 10/27/2024 [UNIT Y] ANEUP LOIDY NIPT sex chromosome aneuploidy NOT DETECT ED normal Not Available [facility] [address] [facility], [place], [address], 10/27/2024 23:55:58 10/27/19 25 10/27/2024 [UNIT Y] ANEUP LOIDY NIPT monosomy X LOW RISK <1 in 10,000 normal Not Available [facility] [address] [place], [address], 10/27/2024 23:55:58 10/27/19 25 10/27/2024 [UNIT Y] ANEUP LOIDY NIPT trisomy 13 LOW RISK <1 in 10,000 normal Not Available [facility] [address] [place], [address], 10/27/2024 23:55:58 10/27/19 25 10/27/2024 [UNIT Y] ANEUP LOIDY NIPT trisomy 18 LOW RISK <1 in 10,000 normal Not Available [facility] [address] [place], [address], 10/27/2024 23:55:58 10/27/19 25 10/27/2024 [UNIT Y] ANEUP LOIDY NIPT trisomy 21 LOW RISK <1 in 10,000 normal Not Available [facility] [address] [place], [address], 10/27/2024 23:55:58 10/27/19 25 10/27/2024 [UNIT Y] ANEUP LOIDY NIPT sex MALE normal Not Available [facility] [address], [place], [address], 10/27/2024 23:55:58 10/27/1910/27/2024 [UNIT Y] ANEUP LOIDY NIPT gestation SINGLE TON normal Not Available [facility] [address], [place], [address], 10/27/2024 23:55:58 10/27/19 25 10/27/2024 [UNIT Y] ANEUP LOIDY NIPT for detailed report, see pdf See PDF normal Not Available [facility] [address], [place], [address], 10/27/2024 23:55:58 10/22/19 25 10/22/2024 CBC W/DIF F WBC 8.5 10'3/ uL 3.5-10 .5 Not Available [facility] (Lab) [address], [place], [address], 10/23/2024 11:13:45 10/22/19 25 10/22/2024 CBC W/DIF F RBC 4.24 10'6/ uL (based on docume nted legal sex) 3.80-5 .20 Not Available [facility] (Lab) [address], [place], [address], 10/23/2024 11:13:45 10/22/19 25 10/22/2024 CBC W/DIF F HGB 12.1 g/dL (based on docume nted legal sex) 11.6-1 5.4 Not Available [facility] (Lab) [address] [place], [address], 10/23/2024 11:13:45 10/22/19 25 10/22/2024 CBC W/DIF F HCT 38.0 % (based on docume nted legal sex) 34.0-4 5.0 Not Available [facility] (Lab) [address] [facility], [place], [address], 10/23/2024 11:13:45 10/22/19 25 10/22/2024 CBC W/DIF F MCV 89.6 fL 80.0-9 9.0 Not Available [facility] (Lab) [address], [place], [address], 10/23/2024 11:13:45 10/22/19 25 10/22/2024 CBC W/DIF F MCH 28.5 pg 27.0-3 4.0 Not Available [facility] (Lab) [address], [place], [address], 10/23/2024 11:13:45 10/22/19 25 10/22/2024 CBC W/DIF F MCHC 31.8 g/dL 32.0-3 5.5 low Not Available [facility] (Lab) [address], [place], [address], 10/23/2024 11:13:45 10/22/19 25 10/22/2024 CBC W/DIF F RDW 13.8 % 11.0-1 5.0 Not Available [facility] (Lab) [address], [place], [address], 10/23/2024 11:13:45 10/22/19 25 10/22/2024 CBC W/DIF F plt 366 10'3/ uL 150-40 0 Not Available [facility] (Lab) [address] [facility], [place], [address], 10/23/2024 11:13:45 10/22/19 25 10/22/2024 CBC W/DIF F MPV 11.1 fL 8.8-12 .1 Not Available [facility] (Lab) [address] [place], [address], 10/23/2024 11:13:45 10/22/19 25 10/22/2024 CBC W/DIF F neutrophils 76.9 % 34.0-7 3.0 high Not Available [facility] (Lab) [address] [facility], [place], [address], 10/23/2024 11:13:45 10/22/19 25 10/22/2024 CBC W/DIF F lymphocytes 16.7 % 15.0-5 0.0 Not Available [facility] (Lab) [address] [facility], [place], [address], 10/23/2024 11:13:45 10/22/19 25 10/22/2024 CBC W/DIF F monocytes 5.4 % 1.0-15 .0 Not Available [facility] (Lab) [address] [facility], [place], [address], 10/23/2024 11:13:45 10/22/19 25 10/22/2024 CBC W/DIF F eosinophils 0.4 % 0.0-8. 0 Not Available [facility] (Lab) [address], [place], [address], 10/23/2024 11:13:45 10/22/19 25 10/22/2024 CBC W/DIF F basophils 0.4 % 0.0-2. 0 Not Available [facility] (Lab) [address], [place], [address], 10/23/2024 11:13:45 10/22/19 25 10/22/2024 CBC W/DIF F immature granulocytes 0.2 % no define d refere nce range Immat ure Granu locyt es (IG) repre sents autom ated enume ratio n of Metam yeloc ytes, Myelo cytes and Promy elocy hermila when IG is < 5%. Blast s are not inclu ded in IG and repor robert separ ately if prese nt. Not Available [facility] (Lab) [address], [place], [address], 10/23/2024 11:13:45 10/22/19 25 10/22/2024 CBC W/DIF F absolute neutrophils 6.5 10'3/ uL 1.5-8. 0 Not Available [facility] (Lab) [address], [place], [address], 10/23/2024 11:13:45 10/22/19 25 10/22/2024 CBC W/DIF F absolute lymphocytes 1.4 10'3/ uL 1.0-4. 0 Not Available [facility] (Lab) [address], [place], [address], 10/23/2024 11:13:45 10/22/19 25 10/22/2024 CBC W/DIF F absolute monocytes 0.5 10'3/ uL 0.2-1. 0 Not Available [facility] (Lab) [address], [place], [address], 10/23/2024 11:13:45 10/22/19 25 10/22/2024 CBC W/DIF F absolute eosinophils 0.0 10'3/ uL 0.0-0. 6 Not Available [facility] (Lab) [address], [place], [address], 10/23/2024 11:13:45 10/22/19 25 10/22/2024 CBC W/DIF F absolute basophils 0.0 10'3/ uL 0.0-0. 3 Not Available [facility] (Lab) [address], [place], [address], 10/23/2024 11:13:45 10/22/19 25 10/22/2024 CBC W/DIF F absolute immature granulocytes 0.0 10'3/ uL 0.00-0 .10 Refer ence range s for nonbi nary/ inter sex or unspe cifie d gende r patie nts have not been estab lishe d. Plekaya e refer to the kmo wing table for range s estab lishe d for cisge nder patie nts and evalu ate in the clini nadeem tanika xt of the indiv idual patie nt: https ://deo serrano book. nm.or g/Gen derX Not Available [facility] (Lab) [address], [place], [address], 10/23/2024 11:13:45 10/22/19 25 10/22/2024 HEMOG LOBIN A1C hemoglobin A1C 6.1 % 4.0-5. 6 high The Ameri can Diabe hermila Assoc iatio n recom mends that a prima ry goal of thera py leeann d be a HBA1C of < 7% and that physi cians shoul d reeva luate the treat ment regim en in patie nts with HBA1C value s consi stent ly > 8%. <5.7% Jenny l 5.7 - 6.4% Incre ased risk for diabe hermila >=6.5 % Diagn ostic of diabe hermila <7.0% Goal of thera py >8.0% Actio n sugge sted Not Available [facility] (Lab) [address], [place], [address], 10/23/2024 11:13:46 10/22/19 25 10/22/2024 TYPE/ RH/SC REEN ABO/Rh type O POS Not Available [facility] (Lab) [address], [place], [address], 10/23/2024 11:13:46 10/22/19 25 10/22/2024 TYPE/ RH/SC REEN antibody screen NEG Not Available [facility] (Lab) [address] [place], [address], 10/23/2024 11:13:46 10/22/19 25 10/22/2024 TYPE/ RH/SC REEN exp date 2024 23:59 Not Available [facility] (Lab) [address] [place], [address], 10/23/2024 11:13:46 10/22/19 25 10/22/2024 HIV 1/2 ANTIG EN/AN TIBOD Y, REFLE X CONFI RMATI ON HIV antigen/anti body Nonrea ctive nonrea ctive HIV-1 antig en and HIV-1 /HIV- 2 antib odies were not detec robert. No labor atory evide nce of HIV infec tion. Not Available [facility] (Lab) [address] [facility], [place], [address], 10/23/2024 11:13:47 10/22/19 25 10/22/2024 HEPAT ITIS B SURFA CE ANTIG EN hepatitis B surface antigen Non-re active non-re active This assay was perfo rmed using [employer] ratio n reage nts and test kits. Value s obtai nelsy with other assay metho ds or kits canno t be used inter gonzales eably . Not Available [facility] (Lab) [address], [place], [address], 10/23/2024 11:13:48 10/22/1910/22/2024 HEPAT ITIS C ANTIB LUC SCREE N, REFLE X TO CONFI RMATI ON hepatitis C antibody Non-re active non-re active Antib odies to HCV Not Detec robert, does not exclu de the possi bilit y of expos ure to HCV. Not Available [facility] (Lab) [address], [place], [address], 10/23/2024 11:13:48 10/22/1910/22/2024 RUBEL LA IGG ANTIB LUC, QUANT rubella antibodies, IgG Reacti ve reacti ve Not Available [facility] (Lab) [address], [place], [address], 10/23/2024 11:13:49 10/22/1910/22/2024 RUBEL LA IGG ANTIB LUC, QUANT rubella antibodies, IgG quant 11.2 IU/mL >=10 Non-r eacti ve (Non- Immun e) <10 IU/mL React celina (Immu ne) > or = 10 IU/mL Not Available [facility] (Lab) [address], [place], [address], 10/23/2024 11:13:49 10/22/1910/22/2024 RPR SCREE N, REFLE X TITER /CONF IRMAT ION RPR screen Nonrea ctive nonrea ctive Not Available [facility] (Lab) [address] , [place], [address], 10/23/2024 11:13:49 10/22/19 25 10/22/2024 CULTU RE: URINE result report SEE RESULT S BELOW Test: Cultu re: Urine Speci men Sourc e: Urine - Clean Catch Speci men Type: Urine Speci men Date: 2024 1548 Resul t Date: 2024 0152 Resul t Statu s: Final resul t Abnor mal: No Resul ting Lab: [facility] [address] [facility] [address] Tel: CULTU RE ----- ----- ----- --- No growt h in 1 day (dete ction level of 10,00 0 colon ies / ml.) Not Available [facility] (Lab) [address], [place], [address], 10/24/2024 02:56:52 10/22/19 25 10/22/2024 urina lysis , dipst ick Leukocytes + Not Available [facility] [address], [place], [address], 10/22/2024 16:50:06 10/22/19 25 10/22/2024 urina lysis , dipst ick Protein + Not Available [place] [address], [place], [address], 10/22/2024 16:50:06 10/22/19 25 10/22/2024 urina lysis , dipst ick pH 5 Not Available [place] [address], [place], [address], 10/22/2024 16:50:06 10/22/19 25 10/22/2024 urina lysis , dipst ick Specific [place] 1.005 Not Available [facility] [address], [place], [address], 10/22/2024 16:50:06 10/08/19 25 10/08/2024 US, obste tric, follo w-up No observ ation record ed. [email or web address] [address], [place], [address], 10/11/2024 11:00:14 10/14/19 25 10/14/2024 US, obste tric, 1st trime ster No observ ation record ed. [email or web address] [address], [place], [address], 10/14/2024 22:48:45 10/20/19 25 10/20/2024 US, obste tric, 1st trime ster No observ ation record ed. [email or web address] [address], [place], [address], 10/20/2024 15:11:31 10/22/19 25 10/22/2024 US, obste tric, limit ed No observ ation record ed. [email or web address] [place] [address], [place], [address], 10/22/2024 17:53:11 10/22/19 25 10/22/2024 US, obste tric, follo w-up No observ ation record ed. [email or web address] [address], [place], [address], 10/25/2024 19:31:04 11/04/19 25 11/04/2024 US, obste tric, nucha l trans lucen cy No observ ation record ed. [email or web address] [place] [address], [place], [address], 11/04/2024 18:37:20 11/04/19 25 11/04/2024 US, obste tric, nucha l trans lucen cy No observ ation record ed. [email or web address] [address], [place], [address], 11/04/2024 22:23:55 11/10/19 25 11/10/2024 US, obste tric, follo w-up No observ ation record ed. [email or web address] [address], [place], [address], 11/15/2024 09:35:24 11/17/19 25 11/17/2024 US, obste tric, 2nd or 3rd trime ster No observ ation record ed. [email or web address] [address], [place], [address], 11/18/2024 23:39:21 11/24/19 25 11/24/2024 US, obste tric, follo w-up No observ ation record ed. [address], [place], [address], 11/28/2024 22:44:32 Result Notes None recorded. Problems Name Problem SNOMED Code Status Onset Date Resolution Date Notes Provider Name and Address Organization Details Recorded Time Pregnanc y 24337721 Completed 201909/07/2020 Leonie latham, [facility] 5 11:53:14 Missed miscarri age 35004157 Completed 201803/20/2021 Missed ;Practic e ID: 0001 Monalisa latham, [facility] 13:57:50 Gestatio n period, 12 weeks 65582668 Completed 201803/20/2021 12 weeks gestatio n of pregnanc y;Practi ce ID: 0001 Monalisa latham, [facility] 13:58:38 Miscarri age without complica tion 56296967 Completed 201803/20/2021 Incomple te spontane ous without complica tion;Pra ctice ID: 0001 Monalisa latham [facility] 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 13:58:27 Complica tion of pregnanc y, childbir th and/or puerperi um 001837582 Completed 201803/20/2021 Oth diseases and conditio ns compl preg/chl dbrth;Re corded Elsewher e: No Locat ion: [facility] S ource: EHR Roof Truss Detailer more: N Wenditi ce ID: 0001 Wili lable Time: 03:00:00 PM Monalisa [facility] 13:58:[address] Concept Completed 201903/20/2021 Encntr for general adult medical exam w/o abnormal findings ;Recorde d Elsewher e: No [facility]: EHR Roof Truss Detailer more: N Wenditi ce ID: 0001 Wili lable Time: 04:00:00 PM Monalisa latham [facility] 13:58:26 Hemorrha gic complica tion of pregnanc y 022266308 Completed 201803/20/2021 Other hemorrha ge in early pregnanc y;Record ed Elsewher e: No [facility] S ource: EHR Roof Truss Detailer more: N Practi ce ID: 0001 Wili lable Time: 04:00:00 PM Monalisa latham [facility] 13:57:47 Amenorrh ea 13075032 Completed 201803/20/2021 Amenorrh ea;Recor ded Elsewher e: No Locat ion: [facility] S ource: EHR Roof Truss Detailer more: N Practi ce ID: 0001 Wili lable Time: 02:45:00 PM Monalisa latham [facility] 13:57:49 Pregnanc y detectio n examinat ion Completed 201803/20/2021 Encounte r for pregnanc y test, result positive ;Recorde d Elsewher e: No Locat ion: [facility] S ource: EHR Roof Truss Detailer more: N Practi ce ID: 0001 Wili lable Time: 05:30:00 PM Monalisa [facility] 13:58:37 Gestatio n period, 8 weeks 02084782 Completed 201803/20/2021 8 weeks gestatio n of pregnanc y;Record ed Elsewher e: No Locat ion: [facility] S ource: EHR Roof Truss Detailer more: N Practi ce ID: 0001 Wili lable Time: 03:30:00 PM Monalisa [facility] 13:58:25 Threaten ed miscarri age 41091192 Completed 201803/20/2021 Threaten ed ;Recorde d Elsewher e: No Locat ion: [facility] S ource: EHR Roof Truss Detailer more: N Practi ce ID: 0001 Wili lable Time: 03:30:00 PM Monalisa latham [facility] 13:58:35 Atypical squamous cells of undeterm ined signific ance on cervical Papanico laou smear 155146920 Completed 201903/20/2021 Atyp squam cell of undet signfc cyto smr crvx (ASC-US) ;Recorde d Elsewher e: No Locat ion: [facility] S ource: EHR Roof Truss Detailer more: N Practi ce ID: 0001 Wili lable Time: 04:00:00 PM Monalisa latham, [facility] 13:58:31 Gestatio n period, 10 weeks 10324636 Completed 201803/20/2021 10 weeks gestatio n of pregnanc y;Record ed Elsewher e: No Locat ion: [facility] S ource: EHR Roof Truss Detailer more: N Practi ce ID: 0001 Wili lable Time: 03:00:00 PM Monalisa latham [facility] 13:58:29 Normal pregnanc y in multigra dawood [id number] 25701 Completed 201803/20/2021 Encounte r for supervis ion of other normal pregnanc y, 2nd trimeste r;Record ed Elsewher e: No Locat ion: [facility] S ource: EHR Roof Truss Detailer more: N Practi ce ID: 0001 Wili lable Time: 03:30:00 PM Monalisa latham [facility] 13:58:33 Gestatio n period, 11 weeks 25350451 Completed 201803/20/2021 11 weeks gestatio n of pregnanc y;Practi ce ID: 0001 Monalisa latham, [facility] 13:58:34 Antenata l screenin g Completed 201803/20/2021 Encounte r for antenata l screenin g for nuchal transluc ency;Pra ctice ID: 0001 Monalisa latham, [facility] 13:58:21 Pregnanc y test negative 465461995 Completed 201803/20/2021 Encounte r for pregnanc y test, result negative ;Practic e ID: 0001 Monalisa latham [facility] 13:58:23 Patient requeste d procedur e [id number] Completed 201803/20/2021 Encounte r for elective terminat ion of pregnanc y;Practi ce ID: 0001 Monalisa Pennington noa, [facility] 1 13:57:52 Uterine size for dates discrepa ncy Completed 201803/20/2021 Uterine size-jeff e discrepa ncy, first trimeste r;Record ed Elsewher e: No Locat ion: [facility] S ource: EHR Roof Truss Detailer more: N Practi ce ID: 0001 Wili lable Time: 03:30:00 PM Monalisa Pennington noa, [facility] 1 13:58:17 Pregnanc y 80477532 Completed 202011/06/2021 Leonie latham, [facility] 5 11:53:14 History of previous intraute rine growth restrict ed [id number] 95071 Completed 2665 gm at 39 wks, serial growth ultrasou nds are required ; 32 wk weekly antenata l testing Maryana latham, [facility] 2 15:48:40 Obesity 361510039 Completed Weekly antenata l testing at 37 weeks Maryana latham, [facility] 2 15:48:40 Gestatio nal diabetes mellitus 36814870 Completed 2020 antenata l testing at 32 weeks, BS QID - *10/10/21 AM Insulin 10 units NPH & 56 units NPH at HS. JUNAID, RN Maryana latham, [facility] 2 15:48:40 Pregnanc y-induce d hyperten vero 59781789 Completed uncertai n diagnosi s here, blood pressure s quickly resolved to normal values. Maryana latham [facility] 2 15:48:40 Pregnanc y 87616488 Completed 202311/19/2023 Leonie latham, [facility] 5 11:53:14 Advanced maternal age 635385550 Completed bASA Cristela latham, [facility] 4 15:49:56 Type 2 diabetes mellitus 28638938 Completed NPH 20u qHS, serial growth Cristela latham, [facility] 4 15:49:56 Past pregnanc y history of miscarri age 551735021 Completed vagP Cristela latham, [facility] 4 15:49:56 Past pregnanc y history of section 618015908 Completed most recent pregnanc y, FTP Cristela latham, [facility] 4 15:49:56 Cystic fibrosis 734127834 Completed carrier Cristela Leon [facility], [facility] 4 15:49:56 Pregnanc y 60121855 Active 2024 Leonie Claudio latham, [facility] 5 11:53:14 Gestatio nal diabetes mellitus 53185471 Active previous pregnanc y and checking sugars in this pregnanc y DM MFM referral faxed 11/12 Zakiya latham, [facility] 5 10:54:56 Deliveri es by [id number] Active to repeat [facility] Tommy Hensley MD [address], [place], [address], [facility] 5 12:22:24 Problem Notes None recorded. Procedures Surgical History Date Name Laterality Status Provider Name and Address Organization Details Recorded Time 08/04/20 23 Date of Last Pap Smear completed Cristela Leon [facility] 08/04/2023 17:16:50 10/14/19 22 section completed Cristela Leon [facility] 08/04/2023 17:16:13 04/04/20 20 SUCTION DILATION & CURETTAGE (SURG) completed Sara Adames [facility] 12/15/2020 17:04:23 09/29/19 19 termination of completed Cristela Leon [facility] 10/29/2023 14:11:40 09/29/18 99 tonsilectomy/ad enoids completed Cristela Leon [facility] 02/15/2020 12:15:47 Imaging Results Imaging Date Name Status LastModified by Organization Details LastModified Time 10/08/2024 US, obstetric, follow-up completed [email or web address] [address], [place], [address], 10/11/2024 11:00:14 10/14/2024 US, obstetric, 1st trimester completed [email or web address] [address], [place], [address], 10/14/2024 22:48:45 10/20/2024 US, obstetric, 1st trimester completed [address], [place], [address], 10/20/2024 15:11:31 10/22/2024 US, obstetric, limited completed parish [place] [address], [place], [address], 10/22/2024 17:53:11 10/22/2024 US, obstetric, follow-up completed [email or web address] [address], [place], [address], 10/25/2024 19:31:04 11/04/2024 US, obstetric, nuchal translucency completed lorenzo Patterson [address], [place], [address], 11/04/2024 18:37:20 11/04/2024 US, obstetric, nuchal translucency completed [email or web address], [place], [address], 11/04/2024 22:23:55 11/10/2024 US, obstetric, follow-up completed [email or web address] [address], [place], [address], 11/15/2024 09:35:24 11/17/2024 US, obstetric, 2nd or 3rd trimester completed [email or web address] [address], [place], [address], 11/18/2024 23:39:21 11/24/2024 US, obstetric, follow-up completed [email or web address] [address], [place], [address], 11/28/2024 22:44:32 Procedure Notes None recorded. Medical Equipment None Reported. Allergies No known drug allergies Medications Name Sig Start Date Stop Date Status Note LastModified by Organization Details LastModified Time metformin 500 mg tablet Take 1 tablet twice a day by oral route. 10/08 completed Not Available Not Available Not Available Aviane 0.1 mg-20 mcg tablet take 1 tablet by oral route every day 10/07 completed Prescrib ed Elsewher e: No Locat ion: [facility] odify By: [email or web address] Encount er DateTime : 08/05/20 04:00:00 PM Not Available Not Available Not Available ibuprofen 800 mg tablet TAKE 1 TABLET BY MOUTH THREE TIMES A DAY WITH FOOD 10/08 completed Not Available Not Available Not Available hydrocodo ne 5 mg-acetam inophen 325 mg tablet 10/30 completed Not Available Not Available Not Available meloxicam 15 mg tablet TAKE 1 TABLET BY MOUTH EVERY DAY 03/21 completed Not Available Not Available Not Available metronida zole 500 mg tablet take 1 tablet by oral route every 12 hours 02/14 completed Not Available Not Available Not Available terconazo le 80 mg vaginal supposito ry Insert 1 supposit ory every day by vaginal route for 3 days. 03/20 completed Not Available Not Available Not Available OneTouch Ultra Test strips USE 4 TIMES DAILY TO CHECK BLOOD SUGAR, CHECK MORNING FASTING AND 1 HOUR AFTER MEALS active Not Available Not Available No t Available cephalexi n 500 mg capsule 02/14 completed Not Available Not Available Not Available misoprost ol [address] four tabs in vagina at HS 02/14 completed Not Available Not Available Not Available Humulin N NPH U-100 Insulin (isophane susp) 100 unit/mL subcutane ous INJECT 5 UNITS UNDER THE SKIN EVERY DAY AT BEDTIME. active Not Available Not Available No t Available progester one micronize d 200 mg capsule Take 1 capsule every day by oral route as directed . active Not Available Not Available No t Available docusate sodium 100 mg capsule 10/30 completed Not Available Not Available Not Available Baby Aspirin 81 mg chewable tablet Chew 1 tablet every day by oral route. 10/30 completed Not Available Not Available Not Available nystatin 100,000 unit/gram topical powder APPLY TO AFFECTED AREA TWICE A DAY 02/19 completed Not Available Not Available Not Available ibuprofen 600 mg tablet TAKE 1 TABLET BY MOUTH EVERY 8 HOURS NEEDED 09/23 completed Not Available Not Available Not Available norethind blake (contrace ptive) 0.35 mg tablet TAKE 1 TABLET BY MOUTH EVERY DAY 08/04 completed Not Available Not Available Not Available Vitamin 27 mg iron-0.8 mg tablet TAKE 1 TABLET BY MOUTH EVERY DAY 10/08 completed Not Available Not Available Not Available nitrofura ntoin monohydra te/macroc rystals 100 mg capsule TAKE 1 CAPSULE BY MOUTH EVERY 12 HOURS FOR 7 DAYS 08/22 completed Not Available Not Available Not Available 10/30 completed Not Available Not Available Not Available Baby Aspirin active Not Available Not Available Not Available + DHA 28 mg iron-975 mcg-200 mg oral pack take 1 tablet by oral route every day 09/27 completed Prescrib hina Skelton e: No Locat ion: [facility] odify By: [email or web address] ruiz DateTime : 10/07/19 04:00:00 PM Not Available Not Available Not Available + DHA active Not Available Not Available Not Available 28 mg iron-800 mcg tablet 04/10 completed Prescrib ed Elsewher e: Yes Loca tion: [facility] odify By: malu Cohen r DateTime : 02/04/20 02:45:00 PM Not Available Not Available Not Available TRUEplus Insulin 0.3 mL 31 gauge x 5/16 syringe active Not Available Not Available Not Available TRUEplus Insulin 1 mL 31 gauge x 5/16 syringe USE DIRECTED . 05/28 completed Not Available Not Available Not Available folic acid 0.8 mg capsule 07/23 completed Prescrib ed Elsewher e: Yes Loca tion: [facility] odify By: malu Cohen r DateTime : 04/10/20 08:30:00 AM Not Available Not Available Not Available Solosec [address] granules in packet take 1 pack orally. Sprinkle contents onto applesau ce, yogurt or pudding. Take within 30 min once. Auto save to run saving card as secondar y 10/18 completed Prescrib ed Elsewher e: No Locat ion: [facility] odify By: kevin glover DateTime : 10/15/19 11:50:23 AM Not Available Not Available Not Available TechLITE Insulin Syringe (half unit) 0.3 mL 31 gauge x 5/16 USE DIRECTED AT BEDTIME 10/30 completed Not Available Not Available Not Available OneTouch Ultra2 Meter USE DIRECTED 11/04 completed Not Available Not Available Not Available OneTouch Delica Plus Lancet 33 gauge USE 1 LANCET TO PRICK SKIN TO TEST BLOOD SUGAR 4 TIMES DAILY, MORNING FASTING AND 1 HOUR AFTER MEALS active Not Available Not Available No t Available Dexcom G7 Machine Molder active Not Available Not Available Not Available Dexcom G7 Sensor device active Not Available Not Available Not Available Vitals Date Recorded Body height Body mass index (BMI) Body weight Systolic blood pressure Diastolic blood pressure Provider Name and Address Organization Details Last Updated DateTime 11/04/2024 160.02 cm 39.1 kg/m2 063662.9 1 g 105 mm[Hg] 71 mm[Hg] Leonie Snyder MS - [facility] 11:50:47 Date Recorded Body height Body mass index (BMI) Body weight Systolic blood pressure Diastolic blood pressure Provider Name and Address Organization Details Last Updated DateTime 12/01/2024 160.02 cm 38.1 kg/m2 66549.36 g 126 mm[Hg] 66 mm[Hg] Cristela Leon [facility] 11:00:14 Social History Question Answer Notes LastModified by Organizat ion Details LastModified Time Tobacco Smoking Status Former Smoker America Cárdenas noa, [facility] 09/17/2023 11:07:08 Do You Have An Advance Directive? No [email or web address] Information not available 03/21/2021 What Is Your Level Of Alcohol Consumption? None [email or web address] Information not available 02/15/2020 If You Are , What Was Your Level Of Alcohol Consumption Prior To ? None [email or web address] Information not available 09/17/2023 How Many Years Have You Consumed Alcohol? 12 [email or web address] Information not available 03/21/2021 Are You Blind Or Do You Have Difficulty Seeing? No Information not available 03/21/2021 What Is Your Level Of Caffeine Consumption? Occasional [email or web address] Information not available 03/21/2021 How Much Tobacco Do You Chew? None [email or web address] Information not available 03/21/2021 In The 14 Days Before Symptom Onset, Have You Had Close Contact With A Laboratory-confir med COVID-19 While That Case Was Ill? No [email or web address] Information not available 03/21/2021 In The 14 Days Before Symptom Onset, Have You Had Close Contact With A Person Who Is Under Investigation For COVID-19 While That Person Was Ill? No [email or web address] Information not available 03/21/2021 Have You Been To An Area Known To Be High Risk For COVID-19? No [email or web address] Information not available 03/21/2021 Are You Deaf Or Do You Have Serious Difficulty Hearing? No Information not available 03/21/2021 What Type Of Diet Are You Following? REGULAR [email or web address] Information not available 03/21/2021 What Is The Highest Grade Or Level Of School You Have Completed Or The Highest Degree You Have Received? [id number] [email or web address] Information not available 03/21/2021 What Is Your Occupation? Unemployed [email or web address] Information not available 03/21/2021 Are There Any Guns Present In Your Home? No [email or web address] Information not available 03/21/2021 What Was The Date Of Your Most Recent Tobacco Screening? 12/01/2024 [email or web address] Information not available 12/01/2024 Do You Use Protection During Sex? No Information not available 03/21/2021 Do You Use Your Seat Belt Or Car Seat Routinely? Yes [email or web address] Information not available 03/21/2021 Do You Have Smoke And Carbon Monoxide Detectors In Your Home? Yes [email or web address] Information not available 03/21/2021 How Much Tobacco Do You Smoke? No [email or web address] Information not available 03/21/2021 Smoking Pre- No Information not available 09/17/2023 Do You Feel Stressed (tense, Restless, Nervous, Or Anxious, Or Unable To Sleep At Night)? [id number] [email or web address] Information not available 03/21/2021 Do You Use Any Illicit Or Recreational Drugs? No [email or web address] Information not available 03/21/2021 Do You Use Sunscreen Routinely? No [email or web address] Information not available 03/21/2021 How Many Years Have You Smoked Tobacco? 2 [email or web address] Information not available 03/21/2021 Have You Used IV Drugs? No [email or web address] Information not available 03/21/2021 Sex: Unknown Functional Status Question Answer Note LastModified by Organizat ion Details LastModified Time Do you have difficulty walking or climbing stairs? No Information not available 09/17/2023 Are you able to walk? [email or web address] Information not available 03/21/2021 Are you able to care for yourself? Yes [email or web address] Information not available 09/17/2023 Do you have difficulty dressing or bathing? No [email or web address] Information not available 09/17/2023 What is your exercise level? None [email or web address] Information not available 02/15/2020 Mental Status None recorded. Family History Relationship Description Onset Age of this Age Resolved Age Notes LastModified by Organization Details LastModified Time Father No current problems or disability Not available 03/20 14:02:34 Mother No current problems or disability Not available 03/20 14:02:34 Medical History Condition Response Allergies (Food, seasonal, environmental ) N Other N Drug/Latex Allergies/Reactions N Blood Transfusion N Breast Cancer N Dermatologic Disorders N Lung Disease N Defects or Inherited Disease N Breast Problem N Gestational Diabetes Y Hematologic disorders N Anesthesia Complications N History of STI Y Deep Vein Thrombosis N Polycystic ovary syndrome N Anxiety Disorder N Autoimmune disease N Arthritis N Polyps N Infertility N Acid Reflux (GERD) N History of abnormal pap Y Cancer N Varicosities N Stroke N Neurologic/Epilepsy N Endometriosis N High Cholesterol Y Fibromyalgia N Headaches N Kidney Disease N Heart Problems N Thyroid Problems N Kidney or Bladder Problems N GI Problems N Eating Disorder N Anemia N Art (IVF or FET) N Psychiatric Illness N Ovarian Cancer N Diabetes Y Pulmonary (TB, Asthma) N Hepatitis/Liver Disease N No Past Medical History N Eczema N Urinary Tract Infection N Abuse/Domestic Violence N Asthma N Trauma/Violence N Depression/ depression N Pre-Eclampsia N Hypertension N Osteoporosis N Thrombophilias N Gynecological History Statement/Question Response Abnormal Pap Yes Date of Last Mammogram On BCP's at Conception? N N Was last menstrual period normal Y STIs/STDs Yes HPV Vaccine N Duration of Flow (days) 5 Current Control Method Age at First Child 19 Are cycles usually normal Y Frequency of Cycle (Q days) 28 Most Recent Bone Density Sexually Active? Y Menses Monthly Y Age of first menstrual cycle 13 Date of Last Pap Smear 08/04/2023 Sexual Problems? N LMP Unknown N Obstetrics History GPAL:G 11 P 5 1 4 5 Type Value Full Term 5 Induced 1 Spontaneous 3 Premature 1 Living 5 Total 11 Past Encounters Encounter ID Performer Location Encounter Start Date Encounter Closed Date Diagnosis/Indication Diagnosis SNOMED-CT Code Diagnosis ICD10 Code Diagnosis Note [id number] Radha Goode CNM [facility] [address] [address] 02/15/2020 11:23:35 02/15/2020 13:15:19 Vaginitis 76271063 N76.0 Amenorrhea 71427353 N91. 2 +[id number] [facility] [address] [address] 02/15/2020 14:48:28 02/15/2020 15:32:10 Uncertain viability of 824869241 O36.80X9 Z3A.00 [id number] [facility] [address],[place] [address] 03/06/2020 11:01:12 03/06/2020 12:19:55 [id number] [facility] [address],[place] [address] 03/20/2020 10:06:12 03/20/2020 11:05:27 screening 212518840 Z36.82 [id number] Tommy Hensley MD [facility] [address],[place] [address] 03/20/2020 10:07:26 03/20/2020 11:43:09 screening 217076896 Z36.82 Routine an tenatal care 057456239 Z34.81 [id number] [facility] [address],[place] [address] 03/28/2020 16:40:43 03/28/2020 17:15:04 Missed miscarriage 30558926 O02.1 Z3A.00 [id number] Tommy Hensley MD [facility] [address],[place] [address] 03/28/2020 16:41:16 03/29/2020 15:02:16 Missed miscarriage 07518169 O02.1 This patient is a 34-year-ol d female with missed . She has decided to proceed with suction D&C. She understand s the risk, benefits, and alternativ es. She has completed the informed consent process and is ready to proceed. [id number] [facility] [address],[place] [address] 03/30/2020 16:29:18 03/30/2020 17:11:26 Missed miscarriage 79807756 O02.1 Z3A.00 This patient is a 34-year-ol d female with missed . She has decided to proceed with suction D&C. She understand s the risk, benefits, and alternativ es. She has completed the informed consent process and is ready to proceed. [id number] Tommy Hensley MD [facility] [address],[place] [address] 04/11/2020 17:02:59 04/12/2020 21:38:55 [id number] Tommy Hensley MD [facility] [address],[place] [address] 04/14/2020 17:04:13 04/16/2020 13:02:22 Missed miscarriage 64346427 O02.1 Z3A.00 This patient is a 34-year-ol d female presents forfollow- up on missed . She had a suction D&C. She is recovering normally. Her bleeding isscant. She denies any abnormalva ginal discharge. We discussed evaluation of recurrent miscarriag e. This is her second consecutiv e miscarriag e. She had geneticsst udies performed on the product conception .She is interested in theUbersense work and evaluation of the uterus.We spent 15 minutes face-to-fa ce. We discussed recurrent miscarriag e. We discussed the etiology, evaluation , and treatment [id number] Tommy Hensley MD [facility] [address],[place] [address] 09/27/2020 16:28:27 09/27/2020 17:59:06 Recurrent miscarriage 457003302 N96 this patient is a 34-year-ol d female presents for follow-up on recurrent miscarriag e. We discussed karyotype, uterine evaluation , thyroid, antiphosph olipid antibody syndrome. She is going to invest karyotype, coverage and cost. We ordered antiphosph olipid antibody and thyroid testing. Her uterus is likely normal. She has had multiple ultrasound s in our institutio n. We discussed a daily baby aspirin and the addition of progestero ne when she gets . She will follow-up as needed. [id number] Teredon Mathew [facility] [address],[place] [address] 03/21/2021 09:35:05 03/21/2021 10:34:23 test positive 553040586 Z32.01 Risk factors addressed: Tobacco Cessation, Safe Sexual Practices, environmen ekaterina, work hazards, travel restrictio ns, seat belt use.Eat a health well balanced diet, avoid alcohol, tobacco, and street drugs.Enga ge in daily low impact exercise, avoid temperatur e extremes, and cat, rodent, and bird feces.Avoi d travel to areas where zika virus is a concern.Of fered cf/sma/nip t. Desires NIPT. Would like drawn at 10 weeks. Already knows she is a cf carrier and fob is negative. Handouts given and discussed with patient.Ch ildbirth classes recommende d.New OB sheet given.If previous , counseling . Pt is taking baby aspirin and progestero ne.Pt verbalizes that she understand s the importance of above instructio ns.All questions were answered.P atient reminded to have annual well woman examinatio n and address [facility] . [id number] [facility] [address],[place] [address] 03/21/2021 09:33:31 03/21/2021 12:56:04 [id number] [facility] [address],[place] [address] 04/11/2021 10:49:40 04/12/2021 14:08:00 [id number] [place] [address],[place] [address] 04/19/2021 13:55:34 04/19/2021 14:24:30 screening 909461845 Z36.82 [id number] Tommy Hensley MD [facility] [address],[place] [address] 04/19/2021 13:55:46 04/19/2021 15:41:44 Routine care 037568869 Z34.81 [id number] America Craig [facility] [address] [place] [address] 04/26/2021 10:45:33 04/26/2021 11:36:01 [id number] Kathrine Ash [facility] [address],[place] [address] 05/02/2021 10:42:53 05/02/2021 13:17:58 [id number] Kathrine Ash [facility] [address],[place] [address] 05/09/2021 10:56:01 05/09/2021 12:33:08 [id number] [facility] [address],[place] [address] 05/14/2021 16:34:54 05/14/2021 17:20:06 [id number] She Castillo MD [facility] [address],[place] [address] 05/16/2021 16:50:53 05/16/2021 17:25:53 Grand multipara 15281120 Z64.1 Prediabetes 649764838 R7 3.03 On examina tion - heart not heard 611548572 O36.8399 [id number] [facility] [address],[place] [address] 05/16/2021 17:09:20 05/16/2021 17:25:33 [id number] Tommy Hensley MD [facility] [address],[place] [address] 06/06/2021 11:02:17 06/07/2021 20:49:37 [id number] Tere Mathew [facility] [address],[place] [address] 06/11/2021 10:52:24 06/11/2021 13:25:57 Routine care 406715883 Z34.91 [id number] [facility] [address],[place] [address] 06/11/2021 10:51:12 06/11/2021 12:07:34 screening for malformation 584748137 Z36.3 [id number] Kathrine Ash [facility] [address],[place] [address] 06/19/2021 15:02:03 06/19/2021 18:05:25 Gestational diabetes mellitus class A1 32582864 O24.410 Pt here for diet teaching. Diet teaching completed. Carb counts for meals and snacks reviewed. Pt instructed on how to read nutritiona l labels and instructed on researchin g carb counts for fresh fruits and vegetables . Pt provided with print outs with some fresh food carb counts and online resources reinforced for checking fresh food serving sizes and carb counts. Pt instructed on blood sugar level goals and importance of checking blood sugar and keeping blood sugar log. Pt instructed on high protein low carb and provided with food recommenda tions. Pt instructed on 2200 calorie ADA diet and importance of regular meals and snacks with controlled carb amounts for a custodial stable control of blood sugar. We will call pt next week to review her BS log. Pt verbalized understand ing of [place] [id number] Tommy Hensley MD [facility] [address],[place] [address] 06/19/2021 15:02:21 06/19/2021 17:33:35 Routine care [id number] Z34.81 [id number] Lakeshia Evans [facility] [address],[place] [address] 06/26/2021 12:32:46 06/26/2021 13:27:30 [id number] Kathrine farah [place] [address],[place] [address] 06/27/2021 16:04:02 06/27/2021 16:40:42 Gestational diabetes mellitus class A1 [id number] O24.410 Pt here for insulin teaching. Per SP, pt to begin 10 units of NPH insulin at bedtime. Pt instructed on cleaning the insulin vial top and cleaning the injection site with separate alcohol swabs. Pt instructed on insulin syringe and how to determine the number of units in the syringe. Pt instructed on how to draw up insulin, making sure to carefully check the number of units. Pt instructed on insulin administra tion in subcutaneo us tissue and instructed on how to inject insulin. Pt verbalized understand ing of instructio ns given and return demonstrat ion completed. Humulin N NPH insulin and insulin syringes called to Kodi Chen. Will review BS log with pt next week during heart tone doppler appt. Kathrine farah, CAROLINE [id number] Kathrine farah [facility] [address],[place] [address] 07/04/2021 11:05:38 07/04/2021 12:39:21 Routine care 812567568 Z34.81 Pt here to doppler heart tones for reassuranc e due to hx of poor outcomes and inability to feel regular movement. heart tones dopplered for a full minute. heart tones 143-[place] [id number] Brigitte [facility] [address],[place] [address] 07/09/2021 10:59:51 07/09/2021 11:45:22 screening [id number] Z36.2 [id number] Tommy Hensley MD [facility] [address],[place] [address] 07/11/2021 18:25:42 07/12/2021 11:07:37 Routine care 806653813 Z34.81 Pt here to doppler heart tones for reassuranc e due to hx of poor outcomes and inability to feel regular movement. heart tones dopplered for a full minute. heart tones 143-158. Kathrine farah, CAROLINE [id number] Tommy Hensley MD [facility] [address],[place] [address] 07/18/2021 10:27:38 07/24/2021 11:21:12 [id number] Kathrine Ash [facility] [address],[place] [address] 07/25/2021 10:32:30 07/25/2021 16:08:39 History of poor outcome [id number] 94152 Z87.59 heart tone doppler [id number] [facility] [address] [address] 08/01/2021 11:02:56 08/01/2021 12:34:09 History of poor outcome [id number] 55449 Z87.59 heart tone doppler [id number] Lakeshia Evans [facility] [address],[place] [address] 08/06/2021 10:53:58 08/06/2021 11:27:54 Gestational diabetes mellitus class A2 76252905 O24.414 O26.859 Z3A.28 [id number] Tommy Hensley MD [facility] [address],[place] [address] 08/08/2021 16:51:44 08/08/2021 17:32:00 Routine care 516317792 Z34.81 Pt here to doppler heart tones for reassuranc e due to hx of poor outcomes and inability to feel regular movement. heart tones dopplered for a full minute. heart tones 143-[place] [id number] Kathrine Ash ier [facility] [address],[place] [address] 08/15/2021 11:02:53 08/15/2021 15:02:21 History of poor outcome [id number] 56272 Z87.59 heart tone doppler [id number] [facility] [address] [address] 08/22/2021 14:10:17 08/22/2021 15:05:23 Routine care 085468979 Z34.93 [id number] Kathrine Ash ier [facility] [address],[place] [address] 08/29/2021 10:58:03 08/29/2021 14:27:16 History of poor outcome 6176476696 30074 Z87.59 heart tone doppler [id number] Tere Mathew [facility] [address],[place] [address] 09/03/2021 14:23:34 09/03/2021 16:20:17 Routine care 740326442 Z34.91 [id number] M Dipak [facility] [address],[place] [address] 09/03/2021 14:22:46 09/03/2021 15:21:05 Gestational diabetes mellitus class A2 [id number] O24.414 [id number] Lakeshia Evans [facility] [address],[place] [address] 09/03/2021 14:23:07 09/03/2021 15:55:45 Maternal obesity complicating , childbirth and the puerperium, antepartum 4784832716 07 O24.410 O99.[id number] [facility] [address],[place] [address] 09/06/2021 14:25:53 09/06/2021 15:07:16 Gestational diabetes mellitus class A2 51227818 O24.[id number] [facility] [address],[place] [address] 09/10/2021 15:09:20 09/10/2021 17:13:25 Gestational diabetes mellitus class A2 61683520 O24.414 [id number] [facility] [address],[place] [address] 09/10/2021 15:09:42 09/11/2021 19:19:52 Routine care 239734887 Z34.91 Gestationa l diabetes mellitus class A1 86657487 O24.410 [id number] Brigitte Mandel [facility] [address],[place] [address] 09/10/2021 15:39:19 09/10/2021 17:06:09 condition affecting obstetrical care of mother 599219975 O36.[id number] [facility] [address],[place] [address] 09/13/2021 13:33:09 09/13/2021 14:37:03 Gestational diabetes mellitus class A2 04158892 O24.414 [id number] [facility] [address],[place] [address] 09/17/2021 15:00:25 09/18/2021 09:51:41 Routine care 862148157 Z34.91 [id number] Monalisa Pennington [facility] [address],[place] [address] 09/17/2021 14:59:39 09/17/2021 17:54:23 Gestational diabetes mellitus class A1 13319382 O24.410 Pt here for insulin teaching. Per SP, pt to begin 10 units of NPH insulin at bedtime. Pt instructed on cleaning the insulin vial top and cleaning the injection site with separate alcohol swabs. Pt instructed on insulin syringe and how to determine the number of units in the syringe. Pt instructed on how to draw up insulin, making sure to carefully check the number of units. Pt instructed on insulin administra tion in subcutaneo us tissue and instructed on how to inject insulin. Pt verbalized understand ing of instructio ns given and return demonstrat ion completed. Humulin N NPH insulin and insulin syringes called to Kodi Chen. Will review BS log with pt next week during heart [place] [id number] [facility] [address] [address] 09/17/2021 15:38:49 09/17/2021 15:59:53 condition affecting obstetrical care of mother [id number] O36.[id number] [facility] [address],[place] [address] 1 09/20/2021 14:18:19 09/20/2021 16:26:57 Gestational diabetes mellitus class A2 93017534 O24.[id number] [facility] [address],[place] [address] 1 09/24/2021 14:21:11 09/24/2021 15:01:45 Gestational diabetes mellitus class A2 07911825 O24.414 [id number] She Castillo MD [facility] [address],[place] [address] 1 09/24/2021 14:21:45 09/24/2021 15:35:56 Gestational diabetes mellitus class A2 64572021 O24.[id number] [facility] [address],[place] [address] 1 09/27/2021 14:18:12 09/27/2021 14:55:00 Gestational diabetes mellitus class A2 25753141 O24.414 [id number] Brigitte Mandel [facility] [address],[place] [address] 1 10/01/2021 14:23:17 10/01/2021 15:37:55 Gestational diabetes mellitus class A2 87697080 O24.414 O99.213 Z3A.36 [id number] Cristela Leon [facility] [address],[place] [address] 1 10/01/2021 14:23:47 10/01/2021 15:29:47 Gestational diabetes mellitus class A1 94855045 O24.410 [id number] Tommy Hensley MD [facility] [address],[place] [address] 1 10/01/2021 14:24:06 10/01/2021 16:20:40 Routine care 536048090 Z34.81 [id number] Monalisa Pennington [facility] [address],[place] [address] 1 10/04/2021 13:19:01 10/04/2021 14:56:02 Gestational diabetes mellitus class A2 97975914 O24.414 O99.[id number] [facility] [address],[place] [address] 1 10/08/2021 14:12:49 10/08/2021 15:00:18 Gestational diabetes mellitus class A2 77137695 O24.414 [id number] [facility] [address],[place] [address] 1 10/10/2021 15:06:31 10/10/2021 16:17:46 Routine care 379014965 Z34.93 [id number] [facility] [address],[place] [address] 10/11/2021 13:08:48 10/11/2021 15:37:28 Gestational diabetes mellitus class A2 19405947 O24.414 [id number] Tommy Hensley MD [facility] [address],[place] [address] 1 10/11/2021 14:27:17 10/12/2021 09:08:56 -induced hypertension 85176430 O13.9 Gestationa l diabetes mellitus class A2 80551196 O24.414 [id number] M Dipak [facility] [address],[place] [address] 1 10/12/2021 10:55:10 10/12/2021 11:31:44 Gestational diabetes mellitus class A2 36554622 O24.414 [id number] She Castillo MD [facility] [address],[place] [address] 1 10/30/2021 11:24:18 10/30/2021 13:39:46 Postoperative visit 325524253 Z09 Sterilizat ion requested 738206350 Z30.2 Candidiasis of skin 4988 3006 B37.2 [id number] She Castillo MD [facility] [address],[place] [address] 1 02/19/2022 12:41:07 02/19/2022 13:08:43 Gynecologic examination 60562364 Z01.419 Initial pr escription of oral contraception 666122276 Z30.011 Past pregn tiffanie history of gestational diabetes mellitus 213482571 Z86.32 Dysmenorrhea 220690955 N 94.6 [id number] Monique Montejo [facility] [address],[place] [address] 08/04/2023 17:01:13 08/04/2023 17:31:05 Gynecologic examination 56591950 Z01.419 Take Calcium with Vitamin D 1200mg daily if not receiving in daily diet. It is strongly advised to have an annual flu shot and up can obtain at most pharmacies . If you have not had a TDap shot in the last 10 years you should obtain one as well. Discussed with patient & provided with informatio n regarding Gardisil vaccine to prevent the 4 strains for HPV that cause cervical cancer if under age 26. Encourage safe sexual practices, to use condoms and limit partners if not already in a monogamous relationsh ip. Do monthly self breast exams. Have mammogram yearly or every other year depending on family history. BRCA testing is now available for patients with strong genetic history of female cancer. If interested contact the office. Engage in daily exercise of low impact aerobic exercise 45-60 minutes 4-5 times weekly. Avoid tobacco and illicit drugs as well as using moderation with alcohol intake less than 1-2 8 oz beverages daily. This lifestyle behavior pattern will lead to less health conditions and longer life span. If BMI greater than 25 weight watchers or dietary consult advised. Patient received above instructio ns, and questions have been answered. If you have any questions please call or respond to this email. Patient was made aware of the patient portal and may obtain a paper copy of today's plan if desired. Pap/hpv sentSTD Screen declinedGe netic Screen discussedC olon Screen naDexa Screen naRoutine Labs UTD PCP Secondary dysmenorrhea 80855603 N94.5 Uses NSAID PRN [id number] Vikki Alanis [facility] [address],[place] [address] 1 09/05/2023 12:24:27 09/06/2023 14:00:51 screening 133175903 Z36.87 Z3A.01 [id number] Radha Goode [facility] [address],[place] [address] 1 09/05/2023 12:25:03 09/05/2023 14:51:13 Amenorrhea 70674407 N91.2 +UPT Venereal d isease screening 323540995 Z11.3 [id number] Kathrine Renebowade r [facility] [address],[place] [address] 1 09/17/2023 11:06:58 09/17/2023 13:14:15 Routine care 631222743 Z34.81 Limited U/S completed for heart tones due to pt's poor obstetrica l history. heart rate 172. Pt reassured. Pt is checking her blood sugar QID due to history of GDM and elevated Hgb A1C. Pt states her post prandial blood sugars are normal but her fasting blood sugars are elevated. Pt reports fasting blood sugars of 110-120. Pt states she is eating a bedtime snack that includes protein and carbs. SP informed. Per SP, pt instructed to begin 10 units of NPH at bedtime. Pt verbalized understand ing and rx sent. Kathrine farah RN [id number] Kathrine farah [facility] [address],[place] [address] 09/24/2023 11:09:26 09/24/2023 12:17:13 Routine care 611059288 Z34.81 Limited U/S completed for heart tones due to pt's poor obstetrica l history. heart rate 166 and movement noted. Pt reassured. Pt started insulin at HS and states her fasting blood sugars have improved. Pt will review blood sugar log next week during her 10/03/23 NOB appt. Kathrine farah RN [id number] Brigitte Mandel [facility] [address],[place] [address] 1 10/01/2023 16:05:42 10/01/2023 16:34:47 [id number] SHAUNA CHEUNG MD [facility] [address],[place] [address] 1 10/01/2023 16:26:20 10/07/2023 09:20:34 Pre-existing type 2 diabetes mellitus in 274867910 O24.119 Gestation period, 10 weeks 44912103 Z3A.10 Uterine sc ar from previous surgery affecting 50445305 O34.29 Past pregn tiffanie history of miscarriage 738261222 Z87.59 Advanced m aternal age 586929175 O09.521 [id number] Kathrine farah [facility] [address],[place] [address] 1 10/08/2023 11:16:04 10/08/2023 15:09:54 Routine care 912374959 Z34.81 Limited U/S completed for heart tones due to pt's poor obstetrica l history. heart rate 158 and movement noted. Pt reassured. Kathrine farah RN [id number] Vikki Alanis [facility] [address],[place] [address] 1 10/15/2023 10:55:55 10/15/2023 12:02:51 screening 122472021 Z36.82 Z3A.12 [id number] Kathrine farah [facility] [address],[place] [address] 1 10/22/2023 11:02:13 10/22/2023 12:15:31 Routine care 055053074 Z34.81 Limited U/S completed for heart tones due to pt's poor obstetrica l history. heart rate 152 and movement noted. Pt reassured. Kathrine farah, CAROLINE [id number] Radha Goode [facility] [address],[place] [address] 1 10/29/2023 12:10:11 10/29/2023 19:03:42 [id number] Radha Goode [facility] [address],[place] [address] 1 10/29/2023 13:55:45 10/29/2023 14:37:06 Routine care 820054658 Z34.93 [id number] Kathrine farah [place] [address],[place] [address] 1 11/05/2023 11:39:32 11/05/2023 18:30:57 Routine care 088468706 Z34.81 Limited U/S completed for heart tones due to pt's poor obstetrica l history. heart rate 156 and movement noted. Pt reassured. Pt states she increased her insulin to 16 units at HS but her fasting blood sugars still range from 96-98 consistent ly. SP informed. Per SP, pt instructed to increase insulin to 20 units at HS and informed SP recommends MFM referral. Pt verbalized understand ing. Kathrine farah, CAROLINE [id number] Brigitte Mandel [facility] [address],[place] [address] 1 11/12/2023 14:00:20 11/12/2023 14:17:09 Missed miscarriage 19320727 O02.1 Z3A.00 Z3A.16 [id number] Cristela Leon [facility] [address],[place] [address] 1 01/14/2024 17:15:25 01/15/2024 10:17:23 care 643303010 Z39.2 continue to monitor [facility] hga1cf/u wwe [id number] Radha Goode CNM [facility] [address],[place] [address] 05/28/2024 11:58:27 05/28/2024 12:39:58 Pain in pelvis 94064359 R10.2 Amenorrhea 48885541 N91. 2 start pnv Type 2 elayne betes mellitus 41398039 E11.9 check labs, discussed co-managem ent with MFM when co ntinue to monitor diet and exercise [id number] [facility] [address],[place] [address] 1 09/23/2024 11:09:35 09/23/2024 11:35:39 screening 167636719 Z36.87 Z3A.01 [id number] Tommy Hensley MD [facility] [address],[place] [address] 10/08/2024 10:57:09 10/08/2024 16:37:20 Amenorrhea 60796299 N91.2 this patient is a 39-year-ol d female who presents for amenorrhea . She is a positive test. Ultrasound revealed a 1st trimester gestation. Patient has no complaints . We talked about early care. Talked about genetic screening. We talked about her ultrasound results. We talked about the 12 week ultrasound that has genetic screening components . She was given recommenda tions on exercise, diet, over-the-c ounter medication s. We reviewed her obstetric history. We reviewed her medical history. We reviewed her social history. She will begin routine care at her next visit. [id number] [facility] [address],[place] [address] 10/08/2024 10:57:32 10/08/2024 11:57:52 [id number] [facility] [address],[place] [address] 1 10/14/2024 12:34:44 10/14/2024 13:36:32 [id number] [facility] [address],[place] [address] 1 10/20/2024 12:25:33 10/20/2024 12:54:25 [id number] [facility] [address],[place] [address] 1 10/22/2024 11:29:31 10/22/2024 12:08:59 Abdominal pain in 511749260 O99.891 Z3A.11 [id number] Kathrine hsur [facility] [address],[place] [address] 1 10/27/2024 11:05:58 10/27/2024 14:04:10 Routine care 525960897 Z34.81 Limited U/S completed for heart tones due to pt's poor obstetrica l history. heart rate 148 and movement noted. Pt reassured. Kathrine farah, RN [id number] [facility] [address],[place] [address] 11/04/2024 11:02:30 11/04/2024 11:47:58 screening 871036618 Z36.82 Z3A.12 [id number] Tommy Hensley MD [facility] [address],[place] [address] 11/04/2024 11:03:08 11/04/2024 16:25:40 Routine care 196784491 Z34.81 [id number] [facility] [address],[place] [address] 1 11/10/2024 10:31:19 11/10/2024 10:55:31 [id number] [facility] [address],[place] [address] 1 11/17/2024 10:01:22 11/17/2024 10:43:01 [id number] [facility] [address],[place] [address] 1 11/24/2024 10:10:09 11/24/2024 10:52:50 [id number] Radha Goode, CYN [facility] [address] [address] 12/01/2024 10:44:50 12/01/2024 11:12:37 Type 2 diabetes mellitus 08325578 E11.9 Gestation period, 20 weeks 91936664 Z3A.20 Health Concerns Section Related Observation LastModified by Organization Detai ls LastModified Time None Recorded Concern Status LastModified by Organization Details LastModified Time None Recorded Advance Directives Directive N: Payers Encounter Date Sequence Insurance Name Policy Number Policy Saini Covered Member ID Saini Member ID Guarantor Name 11/04/2024 1 [facility] (MEDICAID HMO) [id number] Olimpia Wang [id number] Olimpia Wang 11/10/2024 1 [facility] (MEDICAID HMO) [id number] Olimpia Wang [id number] Olimpia Wang 11/17/2024 1 [facility] (MEDICAID H[facility]) [id number] Olimpia Wang [id number] Olimpia Wang 11/24/2024 1 [facility] (MEDICAID H[facility]) [id number] Olimpia Wang [id number] Olimpia Wang 12/01/2024 1 [facility] (MEDICAID HMO) [id number] Olimpia Wang [id number] Olimpia Wang OBGyn Episode Ob Episode Information Episode Created Date Number of Fetuses Patient Bloodtype Patient rh Status Prepregnancy Weight lbs Domestic Partner Domestic Partner Phone Father Name Home Care Attendant Status 02/15/20 20 1 CLOSED Fetus Data First Name Last Name Admitted to NICU Weight (g) Sex Living Outcome Pediatric Complications Fetus ID Race Codes Race Delivery Type , Spontane ous 1585 Jb Calculation Initial Jb Date Initial Exam Date Initial Exam Provider Initial Ultrasound Date Last Menstrual Period Date Ultra Sound Weeks Gestation 0 Eighteen To Twenty Week Jb Update Ultra Sound Date Fundal Height At Umbil Quickening Date Ultra Sound Latest Weeks Gestation Final Jb Confirmed By Final Jb Confirmed Date Final Jb Date Ultra Sound Latest Days Gestation 0 0 Menstrual History Last Menstrual Date Menses Monthly On Bcp Conception Prior Menses Frequency Hcg Plus Date Menarche Onset Age Delivery Information Delivery Date Delivery Type Labor Anesthesia Weeks Gestation Incision Type Labor Labor Length Hrs Delivered By Post Complications Tubal Sterilization Discharge Date Comments 2018 miscarria ge Discharge Information Feeding Method Contraceptive Method Maternal HG B and HCT Levels Ob Episode Information Episode Created Date Number of Fetuses Patient Bloodtype Patient rh Status Prepregnancy Weight lbs Domestic Partner Domestic Partner Phone Father Name Home Care Attendant Status 02/15/20 20 1 CLOSED Fetus Data First Name Last Name Admitted to NICU Weight (g) Sex Living Outcome Pediatric Complications Fetus ID Race Codes Race Delivery Type , Induced 1586 Jb Calculation Initial Jb Date Initial Exam Date Initial Exam Provider Initial Ultrasound Date Last Menstrual Period Date Ultra Sound Weeks Gestation 0 Eighteen To Twenty Week Jb Update Ultra Sound Date Fundal Height At Umbil Quickening Date Ultra Sound Latest Weeks Gestation Final Jb Confirmed By Final Jb Confirmed Date Final Jb Date Ultra Sound Latest Days Gestation 0 0 Menstrual History Last Menstrual Date Menses Monthly On Bcp Conception Prior Menses Frequency Hcg Plus Date Menarche Onset Age Delivery Information Delivery Date Delivery Type Labor Anesthesia Weeks Gestation Incision Type Labor Labor Length Hrs Delivered By Post Complications Tubal Sterilization Discharge Date Comments 2018 induced Discharge Information Feeding Method Contraceptive Method Maternal HG B and HCT Levels Ob Episode Information Episode Created Date Number of Fetuses Patient Bloodtype Patient rh Status Prepregnancy Weight lbs Domestic Partner Domestic Partner Phone Father Name Home Care Attendant Status 02/15/20 20 1 CLOSED Fetus Data First Name Last Name Admitted to NICU Weight (g) Sex Living Outcome Pediatric Complications Fetus ID Race Codes Race Delivery Type 2948.34 8 M Full Term 1582 Vaginal Delivery Jb Calculation Initial Jb Date Initial Exam Date Initial Exam Provider Initial Ultrasound Date Last Menstrual Period Date Ultra Sound Weeks Gestation 0 Eighteen To Twenty Week Jb Update Ultra Sound Date Fundal Height At Umbil Quickening Date Ultra Sound Latest Weeks Gestation Final Jb Confirmed By Final Jb Confirmed Date Final Jb Date Ultra Sound Latest Days Gestation 0 0 Menstrual History Last Menstrual Date Menses Monthly On Bcp Conception Prior Menses Frequency Hcg Plus Date Menarche Onset Age Delivery Information Delivery Date Delivery Type Labor Anesthesia Weeks Gestation Incision Type Labor Labor Length Hrs Delivered By Post Complications Tubal Sterilization Discharge Date Comments 9 Hicks Discharge Information Feeding Method Contraceptive Method Maternal HG B and HCT Levels Ob Episode Information Episode Created Date Number of Fetuses Patient Bloodtype Patient rh Status Prepregnancy Weight lbs Domestic Partner Domestic Partner Phone Father Name Home Care Attendant Status 02/15/20 20 1 CLOSED Fetus Data First Name Last Name Admitted to NICU Weight (g) Sex Living Outcome Pediatric Complications Fetus ID Race Codes Race Delivery Type 2806.37 3704 M Full Term 1580 Vaginal Delivery Jb Calculation Initial Jb Date Initial Exam Date Initial Exam Provider Initial Ultrasound Date Last Menstrual Period Date Ultra Sound Weeks Gestation 0 Eighteen To Twenty Week Jb Update Ultra Sound Date Fundal Height At Umbil Quickening Date Ultra Sound Latest Weeks Gestation Final Jb Confirmed By Final Jb Confirmed Date Final Jb Date Ultra Sound Latest Days Gestation 0 0 Menstrual History Last Menstrual Date Menses Monthly On Bcp Conception Prior Menses Frequency Hcg Plus Date Menarche Onset Age Delivery Information Delivery Date Delivery Type Labor Anesthesia Weeks Gestation Incision Type Labor Labor Length Hrs Delivered By Post Complications Tubal Sterilization Discharge Date Comments 5 Discharge Information Feeding Method Contraceptive Method Maternal HG B and HCT Levels Ob Episode Information Episode Created Date Number of Fetuses Patient Bloodtype Patient rh Status Prepregnancy Weight lbs Domestic Partner Domestic Partner Phone Father Name Home Care Attendant Status 02/15/20 20 1 CLOSED Fetus Data First Name Last Name Admitted to NICU Weight (g) Sex Living Outcome Pediatric Complications Fetus ID Race Codes Race Delivery Type 3345.24 1 F Full Term 1583 Vaginal Delivery Jb Calculation Initial Jb Date Initial Exam Date Initial Exam Provider Initial Ultrasound Date Last Menstrual Period Date Ultra Sound Weeks Gestation 0 Eighteen To Twenty Week Jb Update Ultra Sound Date Fundal Height At Umbil Quickening Date Ultra Sound Latest Weeks Gestation Final Jb Confirmed By Final Jb Confirmed Date Final Jb Date Ultra Sound Latest Days Gestation 0 0 Menstrual History Last Menstrual Date Menses Monthly On Bcp Conception Prior Menses Frequency Hcg Plus Date Menarche Onset Age Delivery Information Delivery Date Delivery Type Labor Anesthesia Weeks Gestation Incision Type Labor Labor Length Hrs Delivered By Post Complications Tubal Sterilization Discharge Date Comments 0 Nazari Discharge Information Feeding Method Contraceptive Method Maternal HG B and HCT Levels Ob Episode Information Episode Created Date Number of Fetuses Patient Bloodtype Patient rh Status Prepregnancy Weight lbs Domestic Partner Domestic Partner Phone Father Name Home Care Attendant Status 02/15/20 20 1 CLOSED Fetus Data First Name Last Name Admitted to NICU Weight (g) Sex Living Outcome Pediatric Complications Fetus ID Race Codes Race Delivery Type , Spontane ous 1581 Jb Calculation Initial Jb Date Initial Exam Date Initial Exam Provider Initial Ultrasound Date Last Menstrual Period Date Ultra Sound Weeks Gestation 0 Eighteen To Twenty Week Jb Update Ultra Sound Date Fundal Height At Umbil Quickening Date Ultra Sound Latest Weeks Gestation Final Jb Confirmed By Final Jb Confirmed Date Final Jb Date Ultra Sound Latest Days Gestation 0 0 Menstrual History Last Menstrual Date Menses Monthly On Bcp Conception Prior Menses Frequency Hcg Plus Date Menarche Onset Age Delivery Information Delivery Date Delivery Type Labor Anesthesia Weeks Gestation Incision Type Labor Labor Length Hrs Delivered By Post Complications Tubal Sterilization Discharge Date Comments 6 2006 miscarria ge Discharge Information Feeding Method Contraceptive Method Maternal HG B and HCT Levels Ob Episode Information Episode Created Date Number of Fetuses Patient Bloodtype Patient rh Status Prepregnancy Weight lbs Domestic Partner Domestic Partner Phone Father Name Home Care Attendant Status 02/15/20 20 1 CLOSED Fetus Data First Name Last Name Admitted to NICU Weight (g) Sex Living Outcome Pediatric Complications Fetus ID Race Codes Race Delivery Type 2664.85 3 F Full Term 1584 Vaginal Delivery Jb Calculation Initial Jb Date Initial Exam Date Initial Exam Provider Initial Ultrasound Date Last Menstrual Period Date Ultra Sound Weeks Gestation 0 Eighteen To Twenty Week Jb Update Ultra Sound Date Fundal Height At Umbil Quickening Date Ultra Sound Latest Weeks Gestation Final Jb Confirmed By Final Jb Confirmed Date Final Jb Date Ultra Sound Latest Days Gestation 0 0 Menstrual History Last Menstrual Date Menses Monthly On Bcp Conception Prior Menses Frequency Hcg Plus Date Menarche Onset Age Delivery Information Delivery Date Delivery Type Labor Anesthesia Weeks Gestation Incision Type Labor Labor Length Hrs Delivered By Post Complications Tubal Sterilization Discharge Date Comments 4 Magy Discharge Information Feeding Method Contraceptive Method Maternal HG B and HCT Levels Ob Episode Information Episode Created Date Number of Fetuses Patient Bloodtype Patient rh Status Prepregnancy Weight lbs Domestic Partner Domestic Partner Phone Father Name Home Care Attendant Status 03/20/20 20 1 O Positive 205 CLOSED Fetus Data First Name Last Name Admitted to NICU Weight (g) Sex Living Outcome Pediatric Complications Fetus ID Race Codes Race Delivery Type 2443 Jb Calculation Initial Jb Date Initial Exam Date Initial Exam Provider Initial Ultrasound Date Last Menstrual Period Date Ultra Sound Weeks Gestation 09/28/2020 03/20/2020 02/15/2020 12/23/2019 7 Eighteen To Twenty Week Jb Update Ultra Sound Date Fundal Height At Umbil Quickening Date Ultra Sound Latest Weeks Gestation Final Jb Confirmed By Final Jb Confirmed Date Final Jb Date Ultra Sound Latest Days Gestation 0 [email or web address] 03/20/2020 09/28/20 20 0 Pre-vanesa Flowsheet Flowsheet Date 03/06/2020 Bernard Score Blood Edema Fundus Height Fundus Units Glucose Ketones Leukocytes Nitrite Labor Signs Protein Cervic Dilation Cervic Effacement Cervic Station Type Weight in lbs Pre/Post Dialysis Refused BP Diastolic BP Location Tested BP Systolic BP Type Fetus Heart Rate Present Fetus Movement Comments Flowsheet Date 03/20/2020 Bernard Score Blood Edema Fundus Height Fundus Units Glucose Ketones Leukocytes Nitrite Labor Signs Protein Cervic Dilation Cervic Effacement Cervic Station 12 trace Type Weight in lbs Pre/Post Dialysis Refused Weight 206.678850805712 BP Diastolic BP Location Tested BP Systolic BP Type 75 122 Fetus Heart Rate Present A 161 Fetus Movement A No Comments This patient is a 33-year-ol d 8 para 4-0-3-4 at 12 weeks gestation and genetic ultrasound today and has had NIPT. Both appeared normal. She has no identifiable risk factors for this . She will follow-up in 4 weeks for routine care. Flowsheet Date 03/28/2020 Bernard Score Blood Edema Fundus Height Fundus Units Glucose Ketones Leukocytes Nitrite Labor Signs Protein Cervic Dilation Cervic Effacement Cervic Station Type Weight in lbs Pre/Post Dialysis Refused BP Diastolic BP Location Tested BP Systolic BP Type Fetus Heart Rate Present Fetus Movement Comments Flowsheet Date 03/28/2020 Bernard Score Blood Edema Fundus Height Fundus Units Glucose Ketones Leukocytes Nitrite Labor Signs Protein Cervic Dilation Cervic Effacement Cervic Station Type Weight in lbs Pre/Post Dialysis Refused BP Diastolic BP Location Tested BP Systolic BP Type Fetus Heart Rate Present Fetus Movement Comments Flowsheet Date 03/30/2020 Bernard Score Blood Edema Fundus Height Fundus Units Glucose Ketones Leukocytes Nitrite Labor Signs Protein Cervic Dilation Cervic Effacement Cervic Station Type Weight in lbs Pre/Post Dialysis Refused BP Diastolic BP Location Tested BP Systolic BP Type Fetus Heart Rate Present Fetus Movement Comments Flowsheet Date 04/11/2020 Bernard Score Blood Edema Fundus Height Fundus Units Glucose Ketones Leukocytes Nitrite Labor Signs Protein Cervic Dilation Cervic Effacement Cervic Station Type Weight in lbs Pre/Post Dialysis Refused Weight 206.426505438782 BP Diastolic BP Location Tested BP Systolic BP Type 75 129 Fetus Heart Rate Present Fetus Movement Comments Flowsheet Date 04/14/2020 Bernard Score Blood Edema Fundus Height Fundus Units Glucose Ketones Leukocytes Nitrite Labor Signs Protein Cervic Dilation Cervic Effacement Cervic Station Type Weight in lbs Pre/Post Dialysis Refused Weight 205.914704232023 BP Diastolic BP Location Tested BP Systolic BP Type 76 121 Fetus Heart Rate Present Fetus Movement Comments Menstrual History Last Menstrual Date Menses Monthly On Bcp Conception Prior Menses Frequency Hcg Plus Date Menarche Onset Age 0312/23/2019 Genetic Screening And Infection History Question Response Note Mental Retardation/Autism false Patient's Age Will Be 35 Years Or Older At Estim ated Date of Delivery false Thalassemia (New Zealander, Martiniquais, Mediterranean, Or Background): MCV < 80 false Neural Tube Defect (Meningomyelocele, Spina Bifi da, Or Anencephaly) false Congenital Heart Defect false Down Syndrome false Jeanmarie-Sachs (eg, Uatsdin, Cajun, Monegasque-Rwandan) f alse Kobi Disease false Sickle Cell Disease Or Trait () false Hemophilia Or Other Blood Disorders false Muscular Dystrophy false Cystic Fibrosis false [place] Ch[place] false Intellectual Disability/Autism false If Yes, Was Person Tested For Fragile X? false Other Inherited Genetic Or Chromosomal Disorder false Maternal Metabolic Disorder (eg, Type 1 Diabetes , PKU) false Patient Or Baby's Father Had A Child With Defects Not Listed Above false Recurrent Loss, Or A Stillbirth false Medications (including Suppl ements, Vitamins, Herbs, OTC Drugs), Illicit/Recreational Drugs, Alcohol false If Yes, Agent(s) And Strength/Dosage false Any Other Genetic History false Live With Someone With TB Or Exposed To TB false Patient Or Partner Has History Of Genital Herpes false Rash Or Viral Illness Since Last Menstrual Perio d false History Of STD, Gonorrhea, Chlamydia, HPV, Syphi lis false Other Infection History false History of HIV false History of Hepatitis false Prior GBS-infected child false Hemoglobinopathy Or Carrier false Other Structural Defect false Recent Travel History Outside of Country false Delivery Information Delivery Date Delivery Type Labor Anesthesia Weeks Gestation Incision Type Labor Labor Length Hrs Delivered By Post Complications Tubal Sterilization Discharge Date Comments 0 16.1 MAB Discharge Information Feeding Method Contraceptive Method Maternal HG B and HCT Levels Ob Episode Information Episode Created Date Number of Fetuses Patient Bloodtype Patient rh Status Prepregnancy Weight lbs Domestic Partner Domestic Partner Phone Father Name Home Care Attendant Status 04/02/20 20 1 DELETED Jb Calculation Initial Jb Date Initial Exam Date Initial Exam Provider Initial Ultrasound Date Last Menstrual Period Date Ultra Sound Weeks Gestation 0 Eighteen To Twenty Week Jb Update Ultra Sound Date Fundal Height At Umbil Quickening Date Ultra Sound Latest Weeks Gestation Final Jb Confirmed By Final Jb Confirmed Date Final Bj Date Ultra Sound Latest Days Gestation 0 0 Menstrual History Last Menstrual Date Menses Monthly On Bcp Conception Prior Menses Frequency Hcg Plus Date Menarche Onset Age Delivery Information Delivery Date Delivery Type Labor Anesthesia Weeks Gestation Incision Type Labor Labor Length Hrs Delivered By Post Complications Tubal Sterilization Discharge Date Comments 0 Discharge Information Feeding Method Contraceptive Method Maternal HG B and HCT Levels Ob Episode Information Episode Created Date Number of Fetuses Patient Bloodtype Patient rh Status Prepregnancy Weight lbs Domestic Partner Domestic Partner Phone Father Name Home Care Attendant Status 04/19/20 21 1 O Positive CLOSED Fetus Data First Name Last Name Admitted to NICU Weight (g) Sex Living Outcome Pediatric Complications Fetus ID Race Codes Race Delivery Type Lois [phone] F true Full Term [id number] Primary Problems Problem Notes Problem Name Start Date End Date Resolution Snomed Code Not e Gestational diabetes mellitus 06/13/2021 [id number] testi ng at 32 weeks, BS QID - *10/10/21 AM Insulin 10 units NPH & 56 units NPH at HS. MK, RN Obesity [id number] Weekly ant enatal testing at 37 weeks History of previous intrauterine growth restricted [id number] 2665 g m at 39 wks, serial growth ultrasounds are required; 32 wk weekly testing -induced hypertension [id number] uncertain diagnosis here, blood pressures quickly resolved to normal values. Jb Calculation Initial Jb Date Initial Exam Date Initial Exam Provider Initial Ultrasound Date Last Menstrual Period Date Ultra Sound Weeks Gestation 10/29/2021 04/19/2021 03/21/2021 8 Eighteen To Twenty Week Jb Update Ultra Sound Date Fundal Height At Umbil Quickening Date Ultra Sound Latest Weeks Gestation Final Jb Confirmed By Final Jb Confirmed Date Final Jb Date Ultra Sound Latest Days Gestation 0 [email or web address] 04/19/2021 10/29/19 22 0 Pre- Flowsheet Flowsheet Date 04/19/2021 Bernard Score Blood Edema Fundus Height Fundus Units Glucose Ketones Leukocytes Nitrite Labor Signs Protein Cervic Dilation Cervic Effacement Cervic Station 12 Type Weight in lbs Pre/Post Dialysis Refused Weight 204.586130102408 BP Diastolic BP Location Tested BP Systolic BP Type 79 R arm 137 sitting Fetus Heart Rate Present A 145 Fetus Movement Comments This patient is a 35-year-ol d 9 para for at 12 weeks gestation. 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 Her only other issue is the possible growth restriction of her last baby. She had a 2600 g at 39 weeks. This is less than the 5th percentile. We should perform serial growth ultrasounds on this patient. We discussed care. We discussed her history and we agreed to follow-up in 4 weeks. Flowsheet Date 04/26/2021 Bernard Score Blood Edema Fundus Height Fundus Units Glucose Ketones Leukocytes Nitrite Labor Signs Protein Cervic Dilation Cervic Effacement Cervic Station Type Weight in lbs Pre/Post Dialysis Refused BP Diastolic BP Location Tested BP Systolic BP Type Fetus Heart Rate Present Fetus Movement Comments Flowsheet Date 05/02/2021 Bernard Score Blood Edema Fundus Height Fundus Units Glucose Ketones Leukocytes Nitrite Labor Signs Protein Cervic Dilation Cervic Effacement Cervic Station Type Weight in lbs Pre/Post Dialysis Refused BP Diastolic BP Location Tested BP Systolic BP Type Fetus Heart Rate Present Fetus Movement Comments Flowsheet Date 05/09/2021 Bernard Score Blood Edema Fundus Height Fundus Units Glucose Ketones Leukocytes Nitrite Labor Signs Protein Cervic Dilation Cervic Effacement Cervic Station Type Weight in lbs Pre/Post Dialysis Refused BP Diastolic BP Location Tested BP Systolic BP Type Fetus Heart Rate Present Fetus Movement Comments Flowsheet Date 05/14/2021 Bernard Score Blood Edema Fundus Height Fundus Units Glucose Ketones Leukocytes Nitrite Labor Signs Protein Cervic Dilation Cervic Effacement Cervic Station Type Weight in lbs Pre/Post Dialysis Refused BP Diastolic BP Location Tested BP Systolic BP Type Fetus Heart Rate Present Fetus Movement Comments Flowsheet Date 05/16/2021 Bernard Score Blood Edema Fundus Height Fundus Units Glucose Ketones Leukocytes Nitrite Labor Signs Protein Cervic Dilation Cervic Effacement Cervic Station none Type Weight in lbs Pre/Post Dialysis Refused Weight 208.802624024579 BP Diastolic BP Location Tested BP Systolic BP Type 73 114 Fetus Heart Rate Present Fetus Movement A Yes Comments A little bloody mucus in conner let this am. Unable to doppler FHTs due to habitus- on US 150s. Early GCT next visit for A1C of 5.7. AFP today. Anatomy next. This is her 5th child and his 6th! Flowsheet Date 05/16/2021 Bernard Score Blood Edema Fundus Height Fundus Units Glucose Ketones Leukocytes Nitrite Labor Signs Protein Cervic Dilation Cervic Effacement Cervic Station Type Weight in lbs Pre/Post Dialysis Refused BP Diastolic BP Location Tested BP Systolic BP Type Fetus Heart Rate Present Fetus Movement Comments Flowsheet Date 05/23/2021 Bernard Score Blood Edema Fundus Height Fundus Units Glucose Ketones Leukocytes Nitrite Labor Signs Protein Cervic Dilation Cervic Effacement Cervic Station Type Weight in lbs Pre/Post Dialysis Refused BP Diastolic BP Location Tested BP Systolic BP Type Fetus Heart Rate Present Fetus Movement Comments Flowsheet Date 06/06/2021 Bernard Score Blood Edema Fundus Height Fundus Units Glucose Ketones Leukocytes Nitrite Labor Signs Protein Cervic Dilation Cervic Effacement Cervic Station Type Weight in lbs Pre/Post Dialysis Refused BP Diastolic BP Location Tested BP Systolic BP Type Fetus Heart Rate Present Fetus Movement Comments Flowsheet Date 06/11/2021 Bernard Score Blood Edema Fundus Height Fundus Units Glucose Ketones Leukocytes Nitrite Labor Signs Protein Cervic Dilation Cervic Effacement Cervic Station Type Weight in lbs Pre/Post Dialysis Refused BP Diastolic BP Location Tested BP Systolic BP Type Fetus Heart Rate Present Fetus Movement Comments Flowsheet Date 06/11/2021 Bernard Score Blood Edema Fundus Height Fundus Units Glucose Ketones Leukocytes Nitrite Labor Signs Protein Cervic Dilation Cervic Effacement Cervic Station none trace Type Weight in lbs Pre/Post Dialysis Refused Weight 213.665003634785 BP Diastolic BP Location Tested BP Systolic BP Type 76 118 Fetus Heart Rate Present Fetus Movement A No Comments Doing well. Baseline anatomy . Will plan to complete anatomy in 4 weeks. Encouraged flu and covid vaccines. Explained ACOG recommendations. 1 hour gtt today. Flowsheet Date 06/19/2021 Bernard Score Blood Edema Fundus Height Fundus Units Glucose Ketones Leukocytes Nitrite Labor Signs Protein Cervic Dilation Cervic Effacement Cervic Station Type Weight in lbs Pre/Post Dialysis Refused BP Diastolic BP Location Tested BP Systolic BP Type Fetus Heart Rate Present Fetus Movement Comments Flowsheet Date 06/19/2021 Bernard Score Blood Edema Fundus Height Fundus Units Glucose Ketones Leukocytes Nitrite Labor Signs Protein Cervic Dilation Cervic Effacement Cervic Station 21 Type Weight in lbs Pre/Post Dialysis Refused Weight 211.251364046297 BP Diastolic BP Location Tested BP Systolic BP Type 76 R arm 125 sitting Fetus Heart Rate Present A 157 Fetus Movement Comments recent vulvar abrasion, leve l was examined appears normal, normal vaginal discharge. Flowsheet Date 06/26/2021 Bernard Score Blood Edema Fundus Height Fundus Units Glucose Ketones Leukocytes Nitrite Labor Signs Protein Cervic Dilation Cervic Effacement Cervic Station Type Weight in lbs Pre/Post Dialysis Refused BP Diastolic BP Location Tested BP Systolic BP Type Fetus Heart Rate Present Fetus Movement Comments Flowsheet Date 06/27/2021 Bernard Score Blood Edema Fundus Height Fundus Units Glucose Ketones Leukocytes Nitrite Labor Signs Protein Cervic Dilation Cervic Effacement Cervic Station Type Weight in lbs Pre/Post Dialysis Refused BP Diastolic BP Location Tested BP Systolic BP Type Fetus Heart Rate Present Fetus Movement Comments Flowsheet Date 07/04/2021 Bernard Score Blood Edema Fundus Height Fundus Units Glucose Ketones Leukocytes Nitrite Labor Signs Protein Cervic Dilation Cervic Effacement Cervic Station Type Weight in lbs Pre/Post Dialysis Refused BP Diastolic BP Location Tested BP Systolic BP Type Fetus Heart Rate Present Fetus Movement Comments 13u NPH @ HS started Flowsheet Date 07/09/2021 Bernard Score Blood Edema Fundus Height Fundus Units Glucose Ketones Leukocytes Nitrite Labor Signs Protein Cervic Dilation Cervic Effacement Cervic Station Type Weight in lbs Pre/Post Dialysis Refused BP Diastolic BP Location Tested BP Systolic BP Type Fetus Heart Rate Present Fetus Movement Comments Flowsheet Date 07/11/2021 Bernard Score Blood Edema Fundus Height Fundus Units Glucose Ketones Leukocytes Nitrite Labor Signs Protein Cervic Dilation Cervic Effacement Cervic Station 24 Type Weight in lbs Pre/Post Dialysis Refused Weight 210.695514611400 BP Diastolic BP Location Tested BP Systolic BP Type 72 R arm 119 sitting Fetus Heart Rate Present A 152 Fetus Movement A Yes Comments patient for got her blood mae gars, she will call back tomorrow with the values. She reports all good numbers with the exception of 1 fasting. Her recent ultrasound for baseline anatomy completion was normal. Flowsheet Date 07/18/2021 Bernard Score Blood Edema Fundus Height Fundus Units Glucose Ketones Leukocytes Nitrite Labor Signs Protein Cervic Dilation Cervic Effacement Cervic Station Type Weight in lbs Pre/Post Dialysis Refused BP Diastolic BP Location Tested BP Systolic BP Type Fetus Heart Rate Present Fetus Movement Comments Flowsheet Date 07/25/2021 Bernard Score Blood Edema Fundus Height Fundus Units Glucose Ketones Leukocytes Nitrite Labor Signs Protein Cervic Dilation Cervic Effacement Cervic Station Type Weight in lbs Pre/Post Dialysis Refused BP Diastolic BP Location Tested BP Systolic BP Type Fetus Heart Rate Present Fetus Movement Comments Flowsheet Date 08/01/2021 Bernard Score Blood Edema Fundus Height Fundus Units Glucose Ketones Leukocytes Nitrite Labor Signs Protein Cervic Dilation Cervic Effacement Cervic Station Type Weight in lbs Pre/Post Dialysis Refused BP Diastolic BP Location Tested BP Systolic BP Type Fetus Heart Rate Present Fetus Movement Comments Flowsheet Date 08/06/2021 Bernard Score Blood Edema Fundus Height Fundus Units Glucose Ketones Leukocytes Nitrite Labor Signs Protein Cervic Dilation Cervic Effacement Cervic Station Type Weight in lbs Pre/Post Dialysis Refused BP Diastolic BP Location Tested BP Systolic BP Type Fetus Heart Rate Present Fetus Movement Comments Flowsheet Date 08/08/2021 Bernard Score Blood Edema Fundus Height Fundus Units Glucose Ketones Leukocytes Nitrite Labor Signs Protein Cervic Dilation Cervic Effacement Cervic Station 28 Type Weight in lbs Pre/Post Dialysis Refused Weight 210.479819613254 BP Diastolic BP Location Tested BP Systolic BP Type 70 R arm 118 sitting Fetus Heart Rate Present A 145 Fetus Movement Comments blood sugars are reasonable, 28 week labs today, 32 units of NPH at night, growth ultrasound last week - 47th percentile, repeat in Flowsheet Date 08/15/2021 Bernard Score Blood Edema Fundus Height Fundus Units Glucose Ketones Leukocytes Nitrite Labor Signs Protein Cervic Dilation Cervic Effacement Cervic Station Type Weight in lbs Pre/Post Dialysis Refused BP Diastolic BP Location Tested BP Systolic BP Type Fetus Heart Rate Present Fetus Movement Comments Flowsheet Date 08/22/2021 Bernard Score Blood Edema Fundus Height Fundus Units Glucose Ketones Leukocytes Nitrite Labor Signs Protein Cervic Dilation Cervic Effacement Cervic Station neg none trace Type Weight in lbs Pre/Post Dialysis Refused Weight 213.665512965906 BP Diastolic BP Location Tested BP Systolic BP Type 74 127 Fetus Heart Rate Present A 144 Fetus Movement A Yes Comments patient is having some hand pain and nausea. discussed wrist braces , ice at hs, nst start in 2 weeks, discussed kick counts, precautions reviewed, reviewed bs, no change to insulin Flowsheet Date 08/29/2021 Bernard Score Blood Edema Fundus Height Fundus Units Glucose Ketones Leukocytes Nitrite Labor Signs Protein Cervic Dilation Cervic Effacement Cervic Station Type Weight in lbs Pre/Post Dialysis Refused BP Diastolic BP Location Tested BP Systolic BP Type Fetus Heart Rate Present Fetus Movement Comments Flowsheet Date 09/03/2021 Bernard Score Blood Edema Fundus Height Fundus Units Glucose Ketones Leukocytes Nitrite Labor Signs Protein Cervic Dilation Cervic Effacement Cervic Station Type Weight in lbs Pre/Post Dialysis Refused BP Diastolic BP Location Tested BP Systolic BP Type Fetus Heart Rate Present Fetus Movement Comments Flowsheet Date 09/03/2021 Bernard Score Blood Edema Fundus Height Fundus Units Glucose Ketones Leukocytes Nitrite Labor Signs Protein Cervic Dilation Cervic Effacement Cervic Station Type Weight in lbs Pre/Post Dialysis Refused BP Diastolic BP Location Tested BP Systolic BP Type Fetus Heart Rate Present Fetus Movement Comments Flowsheet Date 09/03/2021 Bernard Score Blood Edema Fundus Height Fundus Units Glucose Ketones Leukocytes Nitrite Labor Signs Protein Cervic Dilation Cervic Effacement Cervic Station none none neg Type Weight in lbs Pre/Post Dialysis Refused Weight 213.294971115586 BP Diastolic BP Location Tested BP Systolic BP Type 78 R arm 121 sitting Fetus Heart Rate Present Fetus Movement A Yes Comments Doing well. Started antenata l testing today. Encouraged pre admit. Pt forgot log. Will bring in on . Since starting insulin all FBS has been under 95 and 1 hour pp all under 140. Flowsheet Date 09/06/2021 Bernard Score Blood Edema Fundus Height Fundus Units Glucose Ketones Leukocytes Nitrite Labor Signs Protein Cervic Dilation Cervic Effacement Cervic Station Type Weight in lbs Pre/Post Dialysis Refused BP Diastolic BP Location Tested BP Systolic BP Type 65 R arm 108 sitting Fetus Heart Rate Present Fetus Movement Comments Flowsheet Date 09/10/2021 Bernard Score Blood Edema Fundus Height Fundus Units Glucose Ketones Leukocytes Nitrite Labor Signs Protein Cervic Dilation Cervic Effacement Cervic Station Type Weight in lbs Pre/Post Dialysis Refused BP Diastolic BP Location Tested BP Systolic BP Type Fetus Heart Rate Present Fetus Movement Comments Flowsheet Date 09/10/2021 Bernard Score Blood Edema Fundus Height Fundus Units Glucose Ketones Leukocytes Nitrite Labor Signs Protein Cervic Dilation Cervic Effacement Cervic Station trace Type Weight in lbs Pre/Post Dialysis Refused Weight 213.005633033463 BP Diastolic BP Location Tested BP Systolic BP Type 79 128 Fetus Heart Rate Present A 140 Fetus Movement A Yes Comments Doing well. Did have 3 eleva robert fasting since last visit. Feels diet is controlled. Increased insulin. Pt will call us Friday to review blood sugars. Flowsheet Date 09/10/2021 Bernard Score Blood Edema Fundus Height Fundus Units Glucose Ketones Leukocytes Nitrite Labor Signs Protein Cervic Dilation Cervic Effacement Cervic Station Type Weight in lbs Pre/Post Dialysis Refused BP Diastolic BP Location Tested BP Systolic BP Type Fetus Heart Rate Present Fetus Movement Comments Flowsheet Date 09/13/2021 Bernard Score Blood Edema Fundus Height Fundus Units Glucose Ketones Leukocytes Nitrite Labor Signs Protein Cervic Dilation Cervic Effacement Cervic Station Type Weight in lbs Pre/Post Dialysis Refused BP Diastolic BP Location Tested BP Systolic BP Type 78 R arm 129 sitting Fetus Heart Rate Present Fetus Movement Comments Flowsheet Date 09/17/2021 Bernard Score Blood Edema Fundus Height Fundus Units Glucose Ketones Leukocytes Nitrite Labor Signs Protein Cervic Dilation Cervic Effacement Cervic Station Type Weight in lbs Pre/Post Dialysis Refused BP Diastolic BP Location Tested BP Systolic BP Type Fetus Heart Rate Present Fetus Movement Comments Flowsheet Date 09/17/2021 Bernard Score Blood Edema Fundus Height Fundus Units Glucose Ketones Leukocytes Nitrite Labor Signs Protein Cervic Dilation Cervic Effacement Cervic Station Type Weight in lbs Pre/Post Dialysis Refused BP Diastolic BP Location Tested BP Systolic BP Type Fetus Heart Rate Present Fetus Movement Comments Flowsheet Date 09/17/2021 Bernard Score Blood Edema Fundus Height Fundus Units Glucose Ketones Leukocytes Nitrite Labor Signs Protein Cervic Dilation Cervic Effacement Cervic Station none none trace Type Weight in lbs Pre/Post Dialysis Refused Weight 212.42506552279 BP Diastolic BP Location Tested BP Systolic BP Type 72 112 Fetus Heart Rate Present A 140 Fetus Movement A Yes Comments Doing well. 1 elevated fasti ng in the last week. U/S and bpp today. Encouraged vaccines. Flowsheet Date 09/17/2021 Bernard Score Blood Edema Fundus Height Fundus Units Glucose Ketones Leukocytes Nitrite Labor Signs Protein Cervic Dilation Cervic Effacement Cervic Station Type Weight in lbs Pre/Post Dialysis Refused BP Diastolic BP Location Tested BP Systolic BP Type Fetus Heart Rate Present Fetus Movement Comments Flowsheet Date 09/20/2021 Bernard Score Blood Edema Fundus Height Fundus Units Glucose Ketones Leukocytes Nitrite Labor Signs Protein Cervic Dilation Cervic Effacement Cervic Station Type Weight in lbs Pre/Post Dialysis Refused BP Diastolic BP Location Tested BP Systolic BP Type 77 R arm 128 sitting Fetus Heart Rate Present Fetus Movement Comments pt here for NST wanted to le t KP know her fasting have still been elevated. 110 105 112 talked with KP and per KP to raise insulin to 42 units NPH at night. Flowsheet Date 09/24/2021 Bernard Score Blood Edema Fundus Height Fundus Units Glucose Ketones Leukocytes Nitrite Labor Signs Protein Cervic Dilation Cervic Effacement Cervic Station Type Weight in lbs Pre/Post Dialysis Refused BP Diastolic BP Location Tested BP Systolic BP Type Fetus Heart Rate Present Fetus Movement Comments Flowsheet Date 09/24/2021 Bernard Score Blood Edema Fundus Height Fundus Units Glucose Ketones Leukocytes Nitrite Labor Signs Protein Cervic Dilation Cervic Effacement Cervic Station trace 36 Type Weight in lbs Pre/Post Dialysis Refused Weight 213.638525923607 BP Diastolic BP Location Tested BP Systolic BP Type 74 130 Fetus Heart Rate Present A 135 Fetus Movement A Yes Comments Doing ok. GBS next week. Pre reg scheduled. Sugars all in 90s since insulin change on , will increase HS to 46 units and add 6u am, as lunch and many dinner borderline in 130s. Plan 39week induction, discussed can schedule at around 37 weeks. Flowsheet Date 09/27/2021 Bernard Score Blood Edema Fundus Height Fundus Units Glucose Ketones Leukocytes Nitrite Labor Signs Protein Cervic Dilation Cervic Effacement Cervic Station Type Weight in lbs Pre/Post Dialysis Refused BP Diastolic BP Location Tested BP Systolic BP Type 69 R arm 132 sitting Fetus Heart Rate Present Fetus Movement Comments Flowsheet Date 10/01/2021 Bernard Score Blood Edema Fundus Height Fundus Units Glucose Ketones Leukocytes Nitrite Labor Signs Protein Cervic Dilation Cervic Effacement Cervic Station Type Weight in lbs Pre/Post Dialysis Refused Weight 210.086258117575 BP Diastolic BP Location Tested BP Systolic BP Type 74 117 Fetus Heart Rate Present Fetus Movement Comments Flowsheet Date 10/01/2021 Bernard Score Blood Edema Fundus Height Fundus Units Glucose Ketones Leukocytes Nitrite Labor Signs Protein Cervic Dilation Cervic Effacement Cervic Station Type Weight in lbs Pre/Post Dialysis Refused BP Diastolic BP Location Tested BP Systolic BP Type Fetus Heart Rate Present Fetus Movement Comments Flowsheet Date 10/01/2021 Bernard Score Blood Edema Fundus Height Fundus Units Glucose Ketones Leukocytes Nitrite Labor Signs Protein Cervic Dilation Cervic Effacement Cervic Station 36 trace 1cm 40% -4 Type Weight in lbs Pre/Post Dialysis Refused Weight 210.829321360114 BP Diastolic BP Location Tested BP Systolic BP Type 74 R arm 117 sitting Fetus Heart Rate Present A 140 Fetus Movement A Yes Comments increased insulin to 52 unit s in the evenings, discussed strategies for evening snack. Checked the cervix. Performed a group B strep. Flowsheet Date 10/04/2021 Bernard Score Blood Edema Fundus Height Fundus Units Glucose Ketones Leukocytes Nitrite Labor Signs Protein Cervic Dilation Cervic Effacement Cervic Station Type Weight in lbs Pre/Post Dialysis Refused BP Diastolic BP Location Tested BP Systolic BP Type Fetus Heart Rate Present Fetus Movement Comments Flowsheet Date 10/08/2021 Bernard Score Blood Edema Fundus Height Fundus Units Glucose Ketones Leukocytes Nitrite Labor Signs Protein Cervic Dilation Cervic Effacement Cervic Station Type Weight in lbs Pre/Post Dialysis Refused BP Diastolic BP Location Tested BP Systolic BP Type 89 R arm 149 sitting 84 R arm 132 sitting Fetus Heart Rate Present Fetus Movement Comments Flowsheet Date 10/10/2021 Bernard Score Blood Edema Fundus Height Fundus Units Glucose Ketones Leukocytes Nitrite Labor Signs Protein Cervic Dilation Cervic Effacement Cervic Station neg none trace 1cm 50% -3 Type Weight in lbs Pre/Post Dialysis Refused Weight 212.12445730428 BP Diastolic BP Location Tested BP Systolic BP Type 78 120 Fetus Heart Rate Present A 151 Fetus Movement A Yes Comments patient states blood sugars are elevated, BH contractions, pressure and normal discharge. BS uncontrolled, taking insulin and reducing carb, no cheese dairy, due to uncontrolled bs, reviewed with dr castillo, rec delivery at 38 weeks due to increased risk of demise, mil scheduled increase in insulin, precautions reviewed Flowsheet Date 10/11/2021 Bernard Score Blood Edema Fundus Height Fundus Units Glucose Ketones Leukocytes Nitrite Labor Signs Protein Cervic Dilation Cervic Effacement Cervic Station Type Weight in lbs Pre/Post Dialysis Refused BP Diastolic BP Location Tested BP Systolic BP Type 74 R arm 154 sitting 73 R arm 113 sitting Fetus Heart Rate Present Fetus Movement Comments Flowsheet Date 10/11/2021 Bernard Score Blood Edema Fundus Height Fundus Units Glucose Ketones Leukocytes Nitrite Labor Signs Protein Cervic Dilation Cervic Effacement Cervic Station 37 Type Weight in lbs Pre/Post Dialysis Refused BP Diastolic BP Location Tested BP Systolic BP Type Fetus Heart Rate Present A 145 Fetus Movement Comments this patient is a 36-year-ol d female presents for follow-up care. She has poorly controlled gestational diabetes. We have agreed that she needs to get delivered at 38 weeks. I have strongly encouraged her to be delivered at 38 weeks. She wanted to delay that due to childcare issue. She has a child with COVID. Now the issues of her blood pressures being elevated has,. It is not clear whether this is truly -induced hypertension. She has initial high blood pressures that resolved into something very normal quickly. She agreed to deliver 38 weeks. We going to perform NSTs daily until she reaches 38 weeks. With gestational hypertension she could deliver immediately. But the diagnosis is uncertain. She was encouraged to show for NSTs and for induction of labor 0 at 38 weeks. she was asked to increase insulin to 63 units in the evening and 13 in the a.m.. Flowsheet Date 10/12/2021 Bernard Score Blood Edema Fundus Height Fundus Units Glucose Ketones Leukocytes Nitrite Labor Signs Protein Cervic Dilation Cervic Effacement Cervic Station Type Weight in lbs Pre/Post Dialysis Refused BP Diastolic BP Location Tested BP Systolic BP Type 89 R arm 146 sitting Fetus Heart Rate Present Fetus Movement Comments Flowsheet Date 10/30/2021 Bernard Score Blood Edema Fundus Height Fundus Units Glucose Ketones Leukocytes Nitrite Labor Signs Protein Cervic Dilation Cervic Effacement Cervic Station Type Weight in lbs Pre/Post Dialysis Refused Weight 194.005399475667 BP Diastolic BP Location Tested BP Systolic BP Type 78 126 Fetus Heart Rate Present Fetus Movement Comments Menstrual History Last Menstrual Date Menses Monthly On Bcp Conception Prior Menses Frequency Hcg Plus Date Menarche Onset Age Genetic Screening And Infection History Question Response Note Mental Retardation/Autism false Patient's Age Will Be 35 Years Or Older At Estim ated Date of Delivery false Thalassemia (New Zealander, Martiniquais, Mediterranean, Or Background): MCV < 80 false Neural Tube Defect (Meningomyelocele, Spina Bifi da, Or Anencephaly) false Congenital Heart Defect false Down Syndrome false Jeanmarie-Sachs (eg, Uatsdin, Cajun, Monegasque-Rwandan) f alse Kobi Disease false Sickle Cell Disease Or Trait () false Hemophilia Or Other Blood Disorders false Muscular Dystrophy false Cystic Fibrosis false Ani's Chorea false Intellectual Disability/Autism false If Yes, Was Person Tested For Fragile X? false Other Inherited Genetic Or Chromosomal Disorder false Maternal Metabolic Disorder (eg, Type 1 Diabetes , PKU) false Patient Or Baby's Father Had A Child With Defects Not Listed Above false Recurrent Loss, Or A Stillbirth false Medications (including Suppl ements, Vitamins, Herbs, OTC Drugs), Illicit/Recreational Drugs, Alcohol false If Yes, Agent(s) And Strength/Dosage false Any Other Genetic History false Live With Someone With TB Or Exposed To TB false Patient Or Partner Has History Of Genital Herpes false Rash Or Viral Illness Since Last Menstrual Perio d false History Of STD, Gonorrhea, Chlamydia, HPV, Syphi lis false Other Infection History false History of HIV false History of Hepatitis false Prior GBS-infected child false Hemoglobinopathy Or Carrier false Other Structural Defect false Recent Travel History Outside of Country false Delivery Information Delivery Date Delivery Type Labor Anesthesia Weeks Gestation Incision Type Labor Labor Length Hrs Delivered By Post Complications Tubal Sterilization Discharge Date Comments 2 Induce d [facility] 37.6 Low Transvers e false She Castillo MD Uncontrol led GDM, GHTN, Maternal Obesity, prolonged decel, Arrest of Dilatatio n & emergency c/s Discharge Information Feeding Method Contraceptive Method Maternal HG B and HCT Levels Ob Episode Information Episode Created Date Number of Fetuses Patient Bloodtype Patient rh Status Prepregnancy Weight lbs Domestic Partner Domestic Partner Phone Father Name Home Care Attendant Status 11/04/19 25 1 O Positive 217 Guy Duffy OPEN Fetus Data First Name Last Name Admitted to NICU Weight (g) Sex Living Outcome Pediatric Complications Fetus ID Race Codes Race Delivery Type [id number] Problems Problem Notes 11/10 - Insulin prescribed pe r MM. 5units NPH @[facility] 3/5/25 1300 U/S, OV, & DE Problem Name Start Date End Date Resolution Snomed Code Not e Deliveries by 04 to repeat LTCS Gestational diabetes mellitus [id number] previous pregna ncy and checking sugars in this DM MFM referral faxed 11/12 Jb Calculation Initial Jb Date Initial Exam Date Initial Exam Provider Initial Ultrasound Date Last Menstrual Period Date Ultra Sound Weeks Gestation 11/04/2024 10/14/2024 9 Eighteen To Twenty Week Jb Update Ultra Sound Date Fundal Height At Umbil Quickening Date Ultra Sound Latest Weeks Gestation Final Jb Confirmed By Final Jb Confirmed Date Final Jb Date Ultra Sound Latest Days Gestation 0 [email or web address] 11/04/2024 05/15/20 25 0 Pre-vanesa Flowsheet Flowsheet Date 11/04/2024 Bernard Score Blood Edema Fundus Height Fundus Units Glucose Ketones Leukocytes Nitrite Labor Signs Protein Cervic Dilation Cervic Effacement Cervic Station Type Weight in lbs Pre/Post Dialysis Refused Weight 221.478544311075 BP Diastolic BP Location Tested BP Systolic BP Type 71 L arm 105 sitting Fetus Heart Rate Present A 145 Fetus Movement A No Comments this patient is a -year-old multiparous female at 12 weeks' gestation who presents for initial care. She has a history of term vaginal births and . Her medical, surgical, obstetric history is unremarkable, with the exception of delivery and gestational diabetes.. She is vaccinated. She was given precautions recommendations for . We talked about vaccines in . Talked about care in detail. She is having genetic testing. She had a normal 12 week ultrasound. To begin routine care. Flowsheet Date 11/10/2024 Bernard Score Blood Edema Fundus Height Fundus Units Glucose Ketones Leukocytes Nitrite Labor Signs Protein Cervic Dilation Cervic Effacement Cervic Station Type Weight in lbs Pre/Post Dialysis Refused BP Diastolic BP Location Tested BP Systolic BP Type Fetus Heart Rate Present Fetus Movement Comments Flowsheet Date 11/17/2024 Bernard Score Blood Edema Fundus Height Fundus Units Glucose Ketones Leukocytes Nitrite Labor Signs Protein Cervic Dilation Cervic Effacement Cervic Station Type Weight in lbs Pre/Post Dialysis Refused BP Diastolic BP Location Tested BP Systolic BP Type Fetus Heart Rate Present Fetus Movement Comments Flowsheet Date 11/24/2024 Bernard Score Blood Edema Fundus Height Fundus Units Glucose Ketones Leukocytes Nitrite Labor Signs Protein Cervic Dilation Cervic Effacement Cervic Station Type Weight in lbs Pre/Post Dialysis Refused BP Diastolic BP Location Tested BP Systolic BP Type Fetus Heart Rate Present Fetus Movement Comments Flowsheet Date 12/01/2024 Bernard Score Blood Edema Fundus Height Fundus Units Glucose Ketones Leukocytes Nitrite Labor Signs Protein Cervic Dilation Cervic Effacement Cervic Station neg none Type Weight in lbs Pre/Post Dialysis Refused Weight 215.751554050349 BP Diastolic BP Location Tested BP Systolic BP Type 66 126 Fetus Heart Rate Present A 145 Present Fetus Movement A No Comments Patient states that is havin g some pain and nausea. doing well, lots of naps, sees mfm today, wearing dexcom, thinking about rpt will continue to discuss considering tubal ligation at that time precautions and education f/u 4 weeks Menstrual History Last Menstrual Date Menses Monthly On Bcp Conception Prior Menses Frequency Hcg Plus Date Menarche Onset Age Delivery Information Delivery Date Delivery Type Labor Anesthesia Weeks Gestation Incision Type Labor Labor Length Hrs Delivered By Post Complications Tubal Sterilization Discharge Date Comments Discharge Information Feeding Method Contraceptive Method Maternal HG B and HCT Levels Ob Episode Information Episode Created Date Number of Fetuses Patient Bloodtype Patient rh Status Prepregnancy Weight lbs Domestic Partner Domestic Partner Phone Father Name Home Care Attendant Status 10/06/19 24 1 O Positive CLOSED Fetus Data First Name Last Name Admitted to NICU Weight (g) Sex Living Outcome Pediatric Complications Fetus ID Race Codes Race Delivery Type Demise [id number] Vaginal Delivery Problems Problem Notes [facility] appt: 11/19 1030 DE & 12/02 815a u/s, DE, OV Problem Name Start Date End Date Resolution Snomed Code Not e Past history of section [id number] most rec ent , [facility] Cystic fibrosis [id number] frye ier Advanced maternal age [id number] bASA Type 2 diabetes mellitus 52882969 NPH 20u qHS, se rial growth Past history of miscarriage [id number] vagP Jb Calculation Initial Jb Date Initial Exam Date Initial Exam Provider Initial Ultrasound Date Last Menstrual Period Date Ultra Sound Weeks Gestation 04/28/2024 2023 09/05/2023 07/22/2023 6 Eighteen To Twenty Week Jb Update Ultra Sound Date Fundal Height At Umbil Quickening Date Ultra Sound Latest Weeks Gestation Final Jb Confirmed By Final Jb Confirmed Date Final Jb Date Ultra Sound Latest Days Gestation 0 devin 10/22/2023 024 0 Pre-vanesa Flowsheet Flowsheet Date 10/01/2023 Bernard Score Blood Edema Fundus Height Fundus Units Glucose Ketones Leukocytes Nitrite Labor Signs Protein Cervic Dilation Cervic Effacement Cervic Station Type Weight in lbs Pre/Post Dialysis Refused Weight 209.147104742367 BP Diastolic BP Location Tested BP Systolic BP Type 85 128 Fetus Heart Rate Present Fetus Movement Comments Patient present to [facility] care. Doing well, no cramping or bleeding. complicated by T2DM, on NPH 10u qHS with good glycemic control. Reports some episodes of dizziness, lasting 10-15 min. Able to do normal activities. No hypoglycemia during these episodes. No nausea or vomiting. Continues on vaginal progesterone and bASA. Discussed stopping vaginal progesterone after next visit. otherwise complicated by hx of c section in her last for FTP, previous deliveries all SVDs. Hx of gHTN in last . Discussed implications on current of DM. Encouraged tight sugar control. Desires NIPT, will draw at next visit. US wnl today, size c/w dates Flowsheet Date 10/08/2023 Bernard Score Blood Edema Fundus Height Fundus Units Glucose Ketones Leukocytes Nitrite Labor Signs Protein Cervic Dilation Cervic Effacement Cervic Station Type Weight in lbs Pre/Post Dialysis Refused BP Diastolic BP Location Tested BP Systolic BP Type Fetus Heart Rate Present Fetus Movement Comments Flowsheet Date 10/15/2023 Bernard Score Blood Edema Fundus Height Fundus Units Glucose Ketones Leukocytes Nitrite Labor Signs Protein Cervic Dilation Cervic Effacement Cervic Station Type Weight in lbs Pre/Post Dialysis Refused BP Diastolic BP Location Tested BP Systolic BP Type Fetus Heart Rate Present Fetus Movement Comments Flowsheet Date 10/22/2023 Bernard Score Blood Edema Fundus Height Fundus Units Glucose Ketones Leukocytes Nitrite Labor Signs Protein Cervic Dilation Cervic Effacement Cervic Station Type Weight in lbs Pre/Post Dialysis Refused BP Diastolic BP Location Tested BP Systolic BP Type Fetus Heart Rate Present Fetus Movement Comments Flowsheet Date 10/29/2023 Bernard Score Blood Edema Fundus Height Fundus Units Glucose Ketones Leukocytes Nitrite Labor Signs Protein Cervic Dilation Cervic Effacement Cervic Station Type Weight in lbs Pre/Post Dialysis Refused BP Diastolic BP Location Tested BP Systolic BP Type Fetus Heart Rate Present Fetus Movement Comments Flowsheet Date 10/29/2023 Bernard Score Blood Edema Fundus Height Fundus Units Glucose Ketones Leukocytes Nitrite Labor Signs Protein Cervic Dilation Cervic Effacement Cervic Station neg none none trace Type Weight in lbs Pre/Post Dialysis Refused Weight 213.535203195370 BP Diastolic BP Location Tested BP Systolic BP Type 82 165 68 128 Fetus Heart Rate Present Fetus Movement A No Comments doing well, stopped progeste blake, precautions and education, f/u 5 week anatomy scan, log sugars and bring them in for review Flowsheet Date 11/05/2023 Bernard Score Blood Edema Fundus Height Fundus Units Glucose Ketones Leukocytes Nitrite Labor Signs Protein Cervic Dilation Cervic Effacement Cervic Station Type Weight in lbs Pre/Post Dialysis Refused BP Diastolic BP Location Tested BP Systolic BP Type Fetus Heart Rate Present Fetus Movement Comments Flowsheet Date 11/12/2023 Bernard Score Blood Edema Fundus Height Fundus Units Glucose Ketones Leukocytes Nitrite Labor Signs Protein Cervic Dilation Cervic Effacement Cervic Station Type Weight in lbs Pre/Post Dialysis Refused BP Diastolic BP Location Tested BP Systolic BP Type Fetus Heart Rate Present Fetus Movement Comments Flowsheet Date 11/12/2023 Bernard Score Blood Edema Fundus Height Fundus Units Glucose Ketones Leukocytes Nitrite Labor Signs Protein Cervic Dilation Cervic Effacement Cervic Station Type Weight in lbs Pre/Post Dialysis Refused BP Diastolic BP Location Tested BP Systolic BP Type Fetus Heart Rate Present Fetus Movement Comments Menstrual History Last Menstrual Date Menses Monthly On Bcp Conception Prior Menses Frequency Hcg Plus Date Menarche Onset Age 1007/22/2023 Genetic Screening And Infection History Question Response Note Mental Retardation/Autism false Patient's Age Will Be 35 Years Or Older At Estim ated Date of Delivery true Thalassemia (New Zealander, Martiniquais, Mediterranean, Or Background): MCV < 80 false Neural Tube Defect (Meningomyelocele, Spina Bifi da, Or Anencephaly) false Congenital Heart Defect false Down Syndrome false Jeanmarie-Sachs (eg, Uatsdin, Cajun, Monegasque-Rwandan) f alse Kobi Disease false Sickle Cell Disease Or Trait () false Hemophilia Or Other Blood Disorders false Muscular Dystrophy false Cystic Fibrosis false [place]'s Chorea false Intellectual Disability/Autism false If Yes, Was Person Tested For Fragile X? false Other Inherited Genetic Or Chromosomal Disorder false Maternal Metabolic Disorder (eg, Type 1 Diabetes , PKU) false Patient Or Baby's Father Had A Child With Defects Not Listed Above false Recurrent Loss, Or A Stillbirth false Medications (including Suppl ements, Vitamins, Herbs, OTC Drugs), Illicit/Recreational Drugs, Alcohol false If Yes, Agent(s) And Strength/Dosage false Any Other Genetic History false Live With Someone With TB Or Exposed To TB false Patient Or Partner Has History Of Genital Herpes false Rash Or Viral Illness Since Last Menstrual Perio d false History Of STD, Gonorrhea, Chlamydia, HPV, Syphi lis false Other Infection History false History of HIV false History of Hepatitis false Prior GBS-infected child false Hemoglobinopathy Or Carrier false Other Structural Defect false Recent Travel History Outside of Country false Delivery Information Delivery Date Delivery Type Labor Anesthesia Weeks Gestation Incision Type Labor Labor Length Hrs Delivered By Post Complications Tubal Sterilization Discharge Date Comments 4 Induce d 16.3 Radha Goode CNM demise Discharge Information Feeding Method Contraceptive Method Maternal HG B and HCT Levels
[2024-12-04 00:34] LABS: Basophils Percent Auto 0.2 % (0.2-1.2); Eosinophils Absolute Auto 0.1 K/mm3 (0-0.3); Eosinophils Percent Auto 0.9 % (0-4.4); Hematocrit 36.3 % (37.0-47.0); Hemoglobin 12.1 g/dL (12.0-15.0); Immature Granulocyte Absolute 0.04 K/mm3 (0.00-0.031); Immature Granulocyte Percent A 0.4 % (0-0.5); Lymphocytes Absolute Auto 2.23 K/mm3 (0.9-3.2); Lymphocytes Percent Auto 22.6 % (18.3-44.2); Mean Corpuscular HGB Conc 33.3 g/dl (32-36); Mean Corpuscular Volume 87.1 fl (80-100); Mean Platelet Volume 10.7 fl (7.4-10.4); Monocytes Absolute Auto 0.6 K/mm3 (0.1-0.6); Monocytes Percent Auto 6.5 % (2.6-8.5); Neutrophils Absolute Auto 6.8 K/mm3 (1.3-6.7); Neutrophils Percent Auto 69.4 % (45.5-73.1); Platelet Count Result 345 k/mm3 (150-375); Red Blood Count 4.17 M/mm3 (4.2-5.4); Red Cell Distribution Width 13.7 % (11.5-14.5); White Blood Count 9.9 K/mm3 (4.5-10.0)
[2024-12-04 00:45] LABS: Alanine Aminotransferase 60 U/L (6-35); Albumin Level 3.9 g/dL (3.5-5.1); Alkaline Phosphatase 100 U/L (38-126); Anion Gap 11 mmol/L (4-12); Aspartate Amino Transferase 31 U/L (14-36); Bilirubin,Total 0.2 mg/dL (0.2-1.3); Blood Urea Nitrogen 12 mg/dL (7-17); Calcium 9.1 mg/dL (8.4-10.2); Carbon Dioxide 21 mmol/L (22-30); Chloride 105 mmol/L (98-107); Estimated CRCL calculation 164 ml/min; Estimated Glomerular Filt Rate > 60; Glucose 135 mg/dL (65-110); Lipase 106 U/L (23-300); Potassium 3.5 mmol/L (3.4-5.0); Sodium 137 mmol/L (137-145)
[2024-12-04 00:59] LABS: Add Urine Microscopic? YES; Appearance Urine Cloudy (Clear); Bacteria Urine 3+ /hpf; Bilirubin Urine Negative (Negative); Blood Urine 1+ (Negative); Color Urine Yellow (Yellow); Glucose Urine UA Negative (Negative); Ketones Urine Negative (Negative); Leukocyte Esterase Ur 3+ LEU/UL (Negative); Need Manual Microscopic Reviewed; Nitrate Urine Negative (Negative); Protein Urine Trace mg/dL (Negative); Specific Grav Ur 1.022 (1.001-1.035); Squamous Epithelial Cell Urine Many /hpf (Few); WBC Urine >100 /hpf (0-3)
--- OUTSIDE RECORDS SUMMARY | 2024-12-04 04:14 | XMS_ITS | Patient Health Summary ---
Author Organization [facility] Address [address] [place] [address] Care Team Providers Care Robotic Toy Inventor Name Role Phone Unavailable Primary Care Provider Unavailabl e Note from [facility],non-owned Affiliates and Associated Physician Practices is amultiple site organization consisting of ambulatory clinics and hospital sitesin [place], [place], [place] and [place]. This disclosure is being madepursuant to the Care Everywhere program and may not contain all information available regarding this patient. Last updated 18.[facility] Allergies No known active allergies Medications * Be aware that medications may not be up to date on this document. Alwaysverify current medications with the patient. * Xowcjchn-YcEtg-UQ-DHA w/o A ( + DHA PO) Take [...] Comments Blood Pressure 113/58 12/01/2024 1:33 PM HAND SEWER Pulse 97 12/01/2024 1:33 PM HAND SEWER Temperature - - Respiratory Rate - - Oxygen Saturation - - Inhaled Oxygen Concentration - - Weight 97.5 kg (215 lb) 12/01/2024 1:33 PM HAND SEWER Height 160 cm (5' 3 ) 12/01/2024 1:33 PM HAND SEWER Body Mass Index 38.09 12/01/2024 1:33 PM HAND SEWER Procedures * SONOGRAM - COMPLETE(Performed 12/01/2024) Performed for Antepartum multigravida of advanced maternal age (HCC), History of delivery,currently (HCC), Type 2 diabetes mellitus affecting , antepartum (HCC), History of recurrent miscarriages, History of gestational hypertension Results * SONOGRAM - COMPLETE (12/01/2024 1:43 PM HAND SEWER) Linked Results Indication ======== Diabetes mellitus type II vs GDM-A2, Recurrent loss, AMA [facility] years at the [facility] History ====== OB History 11. Para 5 [id number] 1. live 2004. Gest. age 39 w [...] 0 lb 6 oz EFW by Hadlock ([id number]) accelerated Growth Overview Exam date [place] BPD [...] EDC from early U/S * Referred to [facility] for obstetrical U/S & request [...] including: Lupus anticoagulant (LA) Anticardiolipin antibodies (aCL) Nfgn-ezmn8-aymvrxd otein I antibodies (aB2GP1) Antiphosphatidylse rine antibodies Post-puerperium uterine cavity imaging (e.g. HSG, hysterosonogram, or MRI) Please also see the separate note from our [facility] Actuarial Director Follow-up with our [facility] Actuarial Director to review CBGs & DM management in [...] weeks for comprehensive anatomy Coding ====== Procedures [id number]: US Preg Uterus >14 weeks [facility] PACS Anatomical Region Laterality Modality Other 12/01/2024 1:43 PM HAND SEWER Radha Goode APRN-SHAYY M ORDERABLES
--- OUTSIDE RECORDS SUMMARY | 2024-12-04 04:14 | XMS_ITS | Clinical Summary ---
Author Organization [facility] Address [address] [place] [id number] Care Team Providers Care Extraction Supervisor Name Role Phone Kenneth Salcedo MD Primary Care Provider [phone] Social History Tobacco Use Types Packs/Day Years [...] age to complete this topic Care Teams Extraction Supervisor Relationship Specialty Start Date End Date Kenneth Salcedo MD [address] [place] [id number] [facility] - General 03/06/14
--- OUTSIDE RECORDS SUMMARY | 2024-12-04 04:14 | XMS_ITS | Clinical Summary ---
Author Organization [facility] Address [address] [place] [address] Care Team Providers Care Motor Equipment Commanding Officer Name Role Phone Unavailable Primary Care Provider Unavailabl e Source Comments [facility],non-owned Affiliates and Associated Physician Practices is amultiple site organization consisting of ambulatory clinics and hospital sitesin [place], [place], [place] and [place]. This disclosure is being madepursuant to the Care Everywhere program and may not contain all information available regarding this patient. Last updated 18.[facility] [employer] Allergies No known active allergies Medications * Be aware that medications may not be up to date on this document. Alwaysverify current medications with the patient. Medication Sig Dispensed Refills Start Date End Date Status Uioemoff-GtSdd-J A-DHA w/o A ( + DHA PO) [...] Department Care Team Description 12/01/2024 1:00 PM ANNEALER HELPER - 12/01/2024 11:59 PM ANNEALER HELPER Hospital Encounter [facility] [address] [place] [id number] Don Ford MD Discharge Disposition: Home or [...] Comments Blood Pressure 113/58 12/01/2024 1:33 PM ANNEALER HELPER Pulse 97 12/01/2024 1:33 PM ANNEALER HELPER Temperature - - Respiratory Rate - - Oxygen Saturation - - Inhaled Oxygen Concentration - - Weight 97.5 kg (215 lb) 12/01/2024 1:33 PM ANNEALER HELPER Height 160 cm (5' 3 ) 12/01/2024 1:33 PM ANNEALER HELPER Body Mass Index 38.09 12/01/2024 1:33 PM ANNEALER HELPER Plan of Treatment Upcoming Encounters Date Type Department Care Team (Late st Contact Info) Description 12/29/2024 1:45 PM CDT Appointment [facility] [address] [place] [id number] Health Maintenance Due Date Last Done Comments [...] SONOGRAM - COMPLETE Routine 12/01/2024 1:43 PM ANNEALER HELPER Antepartum multigravida of advanced maternal age (HCC) History of delivery, currently (HCC) Type 2 diabetes mellitus affecting , antepartum (HCC) History of recurrent miscarriages History of gestational hypertension from Last 3 Months Results * SONOGRAM - COMPLETE (12/01/2024 1:43 PM ANNEALER HELPER) Linked Results Indication ======== Diabetes mellitus type II vs GDM-A2, Recurrent loss, AMA 38 years at the [facility] History ====== OB History 11. Para 5 [id number] 1. live 2004. Gest. age 39 w [...] 0 lb 6 oz EFW by Hadlock ([id number]) accelerated Growth Overview Exam date [place] BPD [...] EDC from early U/S * Referred to [facility] for obstetrical U/S & request [...] including: Lupus anticoagulant (LA) Anticardiolipin antibodies (aCL) Hxqj-inyd7-jswgemu otein I antibodies (aB2GP1) Antiphosphatidylse rine antibodies Post-puerperium uterine cavity imaging (e.g. HSG, hysterosonogram, or MRI) Please also see the separate note from our [facility] Specimen Processor Follow-up with our [facility] Specimen Processor to review CBGs & DM management in [...] weeks for comprehensive anatomy Coding ====== Procedures [id number]: US Preg Uterus >14 weeks [facility] PACS Anatomical Region Laterality Modality Other 12/01/2024 1:43 PM ANNEALER HELPER Radha Bhavik Goode POLICE DEPARTMENT SECRETARY-MISSILE AND MISSILE CHECKOUT TECHNICIAN [facility] ORDERABLES from Last 3 Months [place] Personal/Family Self 1985 [place] HAWK Personal/Family Spouse
--- OUTSIDE RECORDS SUMMARY | 2024-12-04 04:14 | XMS_ITS | Referral Summary ---
Author Organization [facility] Address [address] [place] [address] Care Team Providers Care Mechanic And Welder Name Role Phone Unavailable Primary Care Provider Unavailabl e Source Comments [facility],non-owned Affiliates and Associated Physician Practices is amultiple site organization consisting of ambulatory clinics and hospital sitesin [place], [place] and [place]. This disclosure is being madepursuant to the Care Everywhere program and may not contain all information available regarding this patient. Last updated 18.[facility] Encounters Date Type Department Care Team Description 12/01/2024 1:00 PM INTERACTIVE DESIGNER - 12/01/2024 11:59 PM INTERACTIVE DESIGNER Hospital Encounter [facility] Women's Health Maternal & Care [address] [place], [place] [id number] Don Ford MD Discharge Disposition: Home or Self Care from Last 3 Months Allergies No known active allergies Medications * Be aware that medications may not be up to date on this document. Alwaysverify current medications with the patient. Medication Sig Dispensed Refills Start Date End Date Status Ptlojtyi-NtZcv-H A-DHA w/o A ( + DHA PO) [...] Comments Blood Pressure 113/58 12/01/2024 1:33 PM INTERACTIVE DESIGNER Pulse 97 12/01/2024 1:33 PM INTERACTIVE DESIGNER Temperature - - Respiratory Rate - - Oxygen Saturation - - Inhaled Oxygen Concentration - - Weight 97.5 kg (215 lb) 12/01/2024 1:33 PM INTERACTIVE DESIGNER Height 160 cm (5' 3 ) 12/01/2024 1:33 PM INTERACTIVE DESIGNER Body Mass Index 38.09 12/01/2024 1:33 PM INTERACTIVE DESIGNER Plan of Treatment Upcoming Encounters Date Type Department Care Team (Late st Contact Info) Description 12/29/2024 1:45 PM CDT Appointment [facility] Women's Health Maternal & Care [address] [place], [place] [id number] Procedures Procedure Name Priority Date/Time Associated Diagnosis Comments SONOGRAM - COMPLETE Routine 12/01/2024 1:43 PM INTERACTIVE DESIGNER Antepartum multigravida of advanced maternal age (HCC) History of delivery, currently (HCC) Type 2 diabetes mellitus affecting , antepartum (HCC) History of recurrent miscarriages History of gestational hypertension from Last 3 Months Results * SONOGRAM - COMPLETE (12/01/2024 1:43 PM INTERACTIVE DESIGNER) Linked Results Indication ======== Diabetes mellitus type II vs GDM-A2, Recurrent loss, AMA 39 [facility] at the [facility] History ====== OB History 11. Para 5 [id number] 1. live 2004. Gest. age 40 w [...] 0 lb 6 oz EFW by Hadlock ([id number]) accelerated Growth Overview Exam date [place] BPD [...] EDC from early U/S * Referred to [facility] for obstetrical U/S & request for [...] including: Lupus anticoagulant (LA) Anticardiolipin antibodies (aCL) Srlf-iqav1-iqbdwlc otein I antibodies (aB2GP1) Antiphosphatidylse rine antibodies Post-puerperium uterine cavity imaging (e.g. HSG, hysterosonogram, or MRI) Please also see the separate note from our [facility] Meat Boner Follow-up with our [facility] Meat Boner to review CBGs & DM management in [...] weeks for comprehensive anatomy Coding ====== Procedures 51872: US Preg Uterus >14 weeks [facility] [employer] PACS Anatomical Region Laterality Modality Other 12/01/2024 1:43 PM INTERACTIVE DESIGNER Radha Goode HOT MILL SHEARER-ENTRY LEVEL RECRUITER [facility] ORDERABLES from Last 3 Months Olimpia Hwak Personal/Family Self 1985 OLIM[address]WK Personal/Family Spouse
--- NOTE | 2024-12-04 04:23 | ED_ITS ---
HPI - General Adult General Chief complaint: Abdominal Pain Stated complaint: RUQ abd pain, 16 wks Time Seen by Provider: 12/04/24 03:47 History of Present Illness HPI narrative: Patient 39-year-old female who presents emergency department chief complaint of abdominal pain. The patient reports the pain in the right upper quadrant reports that she has history of gestational diabetes reports that she has been feeling gas is there are abdomen the patient reports the pain is localized to the right upper quadrant patient states she has had no fever denies diarrhea denies right lower quadrant pain. The patient reports that she is about 16 weeks the patient denies vaginal bleeding or vaginal discharge Related Data Allergies Allergy/AdvReac Type Severity Reaction Status Date / Time No Known Allergies Allergy Verified 12/04/24 00:02 Review of Systems 2 Review of Systems: A 10 system review of systems was completed on the patient and is negative except for what is stated in the HPI. Nursing and ancillary documentation was reviewed. PMFSH Past Medical History Medical History Obesity Surgical History Surgical History History of D&C Family History Family History Other No pertinent family history Social History Social History Smoking packs per day: 0 Smoking cigarettes per day: 0.0 Years smoked: 3 Smoking pack-years: 0.00 Smoking status: Former smoker Tobacco type: cigarettes Second hand tobacco smoke exposure: No Additional smoking assessment comments: social Substance use: never Do You Feel Safe in your Home?: Yes Lack of Transportation: No Lack of Food: Never True Current Housing: I Have Housing Concerned About Future Housing: No Difficulty Paying Gas/Electric Bills: No Difficulty Paying for Meds: No Currently Unemployed: No Education: High School Diploma/GED Difficulty w/ Childcare or Family Care: No Spiritual care concerns: No Exam 2 Narrative: GENERAL: Well-appearing, well-nourished, and in no acute distress. HEAD: Normocephalic, atraumatic. EYES: PERRLA and EOMI. ENT: Nares clear, no rhinorrhea or epistaxis. Mucous membranes moist. NECK: Supple. CHEST: Clear to auscultation. No respiratory distress. HEART: Regular rate and rhythm. No murmur heard. Normal peripheral pulses. ABDOMEN: Soft, tenderness to palpation the right upper quadrant, nondistended, normal active bowel sounds. EXTREMITIES: Normal range of motion. No edema. SKIN: Warm, dry, no rash. NEURO: No focal deficits. Alert and oriented x3. PSYCH: Normal mood and affect. Course Vital Signs Vital signs: Vital Signs Temperature 36.6 C 12/04/24 00:03 Pulse Rate 108 H 12/04/24 00:03 Respiratory Rate 15 12/04/24 00:03 Blood Pressure 106/94 H 12/04/24 00:03 Pulse Oximetry 100 12/04/24 00:03 Oxygen Delivery Room Air 12/04/24 00:03 Temperature 36.6 C 12/04/24 00:03 Pulse Rate 108 H 12/04/24 00:03 Respiratory Rate 15 12/04/24 00:03 Blood Pressure 106/94 H 12/04/24 00:03 Pulse Oximetry 100 12/04/24 00:03 Oxygen Delivery Room Air 12/04/24 00:03 Medical Decision Making MDM Narrative Medical decision making narrative: Differential diagnosis includes cholelithiasis, cholecystitis, biliary ductal dilatation choledocholithiasis, UTI CBC was within normal limits CMP showed a normal bilirubin The patient's pain was controlled at this time The urinalysis showed evidence of UTI The patient will be started on Keflex Currently we do not have ultrasound capability the patient will be given a prescription for an ultrasound will be set up for a 7:30 a.m. slot for an ultrasound Vital Signs Vital Signs: Vital Signs Temperature 36.6 C 12/04/24 00:03 Pulse Rate 108 H 12/04/24 00:03 Respiratory Rate 15 12/04/24 00:03 Blood Pressure 106/94 H 12/04/24 00:03 Pulse Oximetry 100 12/04/24 00:03 Oxygen Delivery Room Air 12/04/24 00:03 Temperature 36.6 C 12/04/24 00:03 Pulse Rate 108 H 12/04/24 00:03 Respiratory Rate 15 12/04/24 00:03 Blood Pressure 106/94 H 12/04/24 00:03 Pulse Oximetry 100 12/04/24 00:03 Oxygen Delivery Room Air 12/04/24 00:03 Lab Data 12/04/24 00:11 12/04/24 00:11 Labs: Lab Results 12/04/24 12/04/24 Range/Units 00:11 00:28 WBC 9.9 (4.5-10.0) K/mm3 RBC 4.17 L (4.2-5.4) M/mm3 Hgb 12.1 (12.0-15.0) g/dL Hct 36.3 L (37.0-47.0) % MCV 87.1 (80-100) fl MCH 29.0 (26-34) pg MCHC 33.3 (32-36) g/dl RDW 13.7 (11.5-14.5) % Plt Count 345 (150-375) k/mm3 MPV 10.7 H (7.4-10.4) fl Immature Gran % (Auto) 0.4 (0-0.5) % Neut % (Auto) 69.4 (45.5-73.1) % Lymph % (Auto) 22.6 (18.3-44.2) % Hall % (Auto) 6.5 (2.6-8.5) % Eos % (Auto) 0.9 (0-4.4) % Baso % (Auto) 0.2 (0.2-1.2) % Lymph # (Auto) 2.23 (0.9-3.2) K/mm3 Hall # (Auto) 0.6 (0.1-0.6) K/mm3 Eos # (Auto) 0.1 (0-0.3) K/mm3 Baso # (Auto) 0.0 (0.0-0.1) K/mm3 Abs Immat Gran (auto) 0.04 H (0.00-0.031) K/mm3 Absolute Neuts (auto) 6.8 H (1.3-6.7) K/mm3 Absolute Nucleated RBC 0.000 (0.0-0.012) K/mm3 Nucleated RBC % 0.0 (0.0-0.2) % Sodium 137 (137-145) mmol/L Potassium 3.5 (3.4-5.0) mmol/L Chloride 105 (98-107) mmol/L Carbon Dioxide 21 L (22-30) mmol/L Anion Gap 11 (4-12) mmol/L BUN 12 (7-17) mg/dL Creatinine 0.44 L (0.7-1.0) mg/dL Estim Creat Clear Calc 164 ml/min Estimated GFR > 60 (59 - ) Glucose 135 H (65-110) mg/dL Calcium 9.1 (8.4-10.2) mg/dL Total Bilirubin 0.2 (0.2-1.3) mg/dL AST 31 (14-36) U/L ALT 60 H (6-35) U/L Alkaline Phosphatase 100 (38-126) U/L Total Protein 7.0 (6.3-8.2) g/dL Albumin 3.9 (3.5-5.1) g/dL Lipase 106 (23-300) U/L Urine Color Yellow (Yellow) Urine Appearance Cloudy H (Clear) Urine pH 6.0 (5.0-9.0) Ur Specific Phelps 1.022 (1.001-1.035) Urine Protein Trace (Negative) mg/dL Urine Glucose (UA) Negative (Negative) mg/dL Urine Ketones Negative (Negative) mg/dL Ur Blood (Man) 1+ H (Negative) Urine Nitrate Negative (Negative) Urine Bilirubin Negative (Negative) Urine Urobilinogen 1.0 (<2.0) mg/dL Add Ur Microanalysis Reviewed Leukocyte Esterase Rfl 3+ H (Negative) SHANTE/UL Urine RBC 6-10 H (0-2) /hpf Urine WBC >100 H (0-3) /hpf Ur Squamous Epith Cells Many H (Few) /hpf Urine Bacteria 3+ H /hpf Urine Casts 3-5 Discharge Plan Discharge Clinical Impression: Right upper quadrant abdominal pain, UTI (urinary tract infection) Patient Disposition: Home, Self-Care Condition: Stable Instructions: Antibiotic Form, Low Fat Diet (ED), Abdominal Pain (ED), Urinary Tract Infection in (ED) Additional Instructions: Please return to the department of radiology for a 730 ultrasound time. Please follow-up with your OBGYN Patient Language: Nepali Prescriptions: New cephalexin 500 mg capsule 500 mg PO Q12H 7 Days Qty: 14 0RF Follow-up/Referrals: PHYSICIAN,GASTROENTEROLOGY NURSE PRACTITIONER [Primary Care Provider] - Time of Disposition: 04:27
[2024-12-04 04:33] VITALS: BP 129/78; PULSE 87; RESP 19; O2SAT 99
== END 2024-12-04 04:34 | disposition home or self-care (01) ==
PROVIDERS: Emergency Provider Emergency Medicine
DX: O23.42 Unspecified infection of urinary tract in pregnancy, second trimester (principal); N39.0 Urinary tract infection, site not specified; Z3A.16 16 weeks gestation of pregnancy
CPT/HCPCS: 36415; 80053; 81001; 83690; 85025; 99283

== ENCOUNTER 2024-12-04 07:50 | Outpatient (CLI) | payer OTHER, SELFPAY ==
--- NOTE | ~2024-12-04 | US_ITS ---
EXAMINATION: US right upper quadrant DATE: 12/04/2024 08:24 INDICATION: Abdominal pain. TECHNIQUE: Multiple grayscale and Doppler ultrasound images of the abdomen were obtained. COMPARISON: CT abdomen and pelvis 12/08/2018 FINDINGS: The visualized portions of the head, body, and tail of the pancreas are normal. The liver i s normal without focal lesion. There is normal flow in main portal vein. The gallbladder is normal in size contains gallstones. No gallbladder wall thickening or sonographic Avery sign. The common duct is normal and measures 5 mm. IMPRESSION: 1. Cholelithiasis. No evidence of acute cholecystitis. Reviewed, dictated and finalized at location A. S FORCE DEVELOPER
--- OUTSIDE RECORDS SUMMARY | 2024-12-04 07:56 | XMS_ITS | Clinical Summary ---
Author Organization [facility] Address [address] [place] [address] Care Team Providers Care Pearl Restorer Name Role Phone Kenneth Salcedo MD Primary Care Provider [phone] Social History Tobacco Use Types Packs/Day Years [...] age to complete this topic Care Teams Pearl Restorer Relationship Specialty Start Date End Date Kenneth Salcedo MD [address] [place] [id number] [facility] - General 03/06/14
--- OUTSIDE RECORDS SUMMARY | 2024-12-04 07:56 | XMS_ITS | Referral Summary ---
Author Organization [facility] Address [address] [place] [address] Care Team Providers Care Oil Well Fishing Tool Technician Name Role Phone Unavailable Primary Care Provider Unavailabl e Source Comments [facility],non-owned Affiliates and Associated Physician Practices is amultiple site organization consisting of ambulatory clinics and hospital sitesin [place], [place], [place] and [place]. This disclosure is being madepursuant to the Care Everywhere program and may not contain all information available regarding this patient. Last updated 18.[facility] Encounters Date Type Department Care Team Description 12/01/2024 1:00 PM AUTO REBUILDER - 12/01/2024 11:59 PM AUTO REBUILDER Hospital Encounter [facility] Women's Health Maternal & Care [address] [place], [place] [phone] Don Ford MD Discharge Disposition: Home or Self Care from Last 3 Months Allergies No known active allergies Medications * Be aware that medications may not be up to date on this document. Alwaysverify current medications with the patient. Medication Sig Dispensed Refills Start Date End Date Status Qxdkkexv-YkGsb-S A-DHA w/o A ( + DHA PO) [...] Comments Blood Pressure 113/58 12/01/2024 1:33 PM AUTO REBUILDER Pulse 97 12/01/2024 1:33 PM AUTO REBUILDER Temperature - - Respiratory Rate - - Oxygen Saturation - - Inhaled Oxygen Concentration - - Weight 97.5 kg (215 lb) 12/01/2024 1:33 PM AUTO REBUILDER Height 160 cm (5' 3 ) 12/01/2024 1:33 PM AUTO REBUILDER Body Mass Index 38.09 12/01/2024 1:33 PM AUTO REBUILDER Plan of Treatment Upcoming Encounters Date Type Department Care Team (Late st Contact Info) Description 12/29/2024 1:45 PM CDT Appointment [facility] Women's Health Maternal & Care [address] [place], [place] [id number] Procedures Procedure Name Priority Date/Time Associated Diagnosis Comments SONOGRAM - COMPLETE Routine 12/01/2024 1:43 PM AUTO REBUILDER Antepartum multigravida of advanced maternal age (HCC) History of delivery, currently (HCC) Type 2 diabetes mellitus affecting , antepartum (HCC) History of recurrent miscarriages History of gestational hypertension from Last 3 Months Results * SONOGRAM - COMPLETE (12/01/2024 1:43 PM AUTO REBUILDER) Linked Results Indication ======== Diabetes mellitus type II vs GDM-A2, Recurrent loss, AMA 39 years at the [facility] History ====== OB History 11. Para 5 [id number] 1. live 2004. Gest. age 39 w [...] 0 lb 6 oz EFW by Hadlock ([id number]) accelerated Growth Overview Exam date [place] BPD [...] EDC from early U/S * Referred to [facility] for obstetrical U/S & request for [...] including: Lupus anticoagulant (LA) Anticardiolipin antibodies (aCL) Icds-vwil4-ouompzy otein I antibodies (aB2GP1) Antiphosphatidylse rine antibodies Post-puerperium uterine cavity imaging (e.g. HSG, hysterosonogram, or MRI) Please also see the separate note from our [facility] Supervisor Engine Repair Follow-up with our [facility] Supervisor Engine Repair to review CBGs & DM management in [...] weeks for comprehensive anatomy Coding ====== Procedures [id number]: US Preg Uterus >14 weeks [facility] [employer] PACS Anatomical Region Laterality Modality Other 12/01/2024 1:43 PM AUTO REBUILDER Radha Goode DIRECTOR OPERATIONS-SURGICAL RESIDENT [facility] ORDERABLES from Last 3 Months Olimpia Hawk Personal/Family Self 1985 OLIM[address] HAWK Personal/Family Spouse
--- OUTSIDE RECORDS SUMMARY | 2024-12-04 07:56 | XMS_ITS | Patient Health Summary ---
Author Organization [facility] Address [address] [place] [address] Care Team Providers Care Mortgage Counselor Name Role Phone Unavailable Primary Care Provider Unavailabl e Note from [facility],non-owned Affiliates and Associated Physician Practices is amultiple site organization consisting of ambulatory clinics and hospital sitesin [place], [place], [place] and [place]. This disclosure is being madepursuant to the Care Everywhere program and may not contain all information available regarding this patient. Last updated 18.[facility] Allergies No known active allergies Medications * Be aware that medications may not be up to date on this document. Alwaysverify current medications with the patient. * Ccdjjnel-NlUmj-ID-DHA w/o A ( + DHA PO) Take [...] Comments Blood Pressure 113/58 12/01/2024 1:33 PM C JAVA DEVELOPER Pulse 97 12/01/2024 1:33 PM C JAVA DEVELOPER Temperature - - Respiratory Rate - - Oxygen Saturation - - Inhaled Oxygen Concentration - - Weight 97.5 kg (215 lb) 12/01/2024 1:33 PM C JAVA DEVELOPER Height 160 cm (5' 3 ) 12/01/2024 1:33 PM C JAVA DEVELOPER Body Mass Index 38.09 12/01/2024 1:33 PM C JAVA DEVELOPER Procedures * SONOGRAM - COMPLETE(Performed 12/01/2024) Performed for Antepartum multigravida of advanced maternal age (HCC), History of delivery,currently (HCC), Type 2 diabetes mellitus affecting , antepartum (HCC), History of recurrent miscarriages, History of gestational hypertension Results * SONOGRAM - COMPLETE (12/01/2024 1:43 PM C JAVA DEVELOPER) Linked Results Indication ======== Diabetes mellitus type II vs GDM-A2, Recurrent loss, AMA 39 years at the [facility] History ====== OB History 11. Para 5 [id number] 1. live 2004. Gest. age 39 w [...] 0 lb 6 oz EFW by Hadlock ([id number]) accelerated Growth Overview Exam date [place] BPD [...] from early U/S * Referred to [facility] for obstetrical U/S & request for [...] including: Lupus anticoagulant (LA) Anticardiolipin antibodies (aCL) Fspu-tgml7-gvgafkc otein I antibodies (aB2GP1) Antiphosphatidylse rine antibodies Post-puerperium uterine cavity imaging (e.g. HSG, hysterosonogram, or MRI) Please also see the separate note from our [facility] Electric Arc Welder Follow-up with our [facility] Electric Arc Welder to review CBGs & DM management in [...] weeks for comprehensive anatomy Coding ====== Procedures [id number]: US Preg Uterus >14 weeks [facility] [employer] PACS Anatomical Region Laterality Modality Other 12/01/2024 1:43 PM C JAVA DEVELOPER Radha Goode APRN-SHAYY M ORDERABLES
--- OUTSIDE RECORDS SUMMARY | 2024-12-04 07:56 | XMS_ITS | Clinical Summary ---
Author Organization [facility] Address [address] [place] [address] Care Team Providers Care Hotel Maid Name Role Phone Unavailable Primary Care Provider Unavailabl e Source Comments [facility],non-owned Affiliates and Associated Physician Practices is amultiple site organization consisting of ambulatory clinics and hospital sitesin [place], [place], [place] and [place]. This disclosure is being madepursuant to the Care Everywhere program and may not contain all information available regarding this patient. Last updated 18.[facility] Beetailer Allergies No known active allergies Medications * Be aware that medications may not be up to date on this document. Alwaysverify current medications with the patient. Medication Sig Dispensed Refills Start Date End Date Status Rbrmzoyv-SoEgi-T A-DHA w/o A ( + DHA PO) [...] Department Care Team Description 12/01/2024 1:00 PM DENTAL TREATMENT COORDINATOR - 12/01/2024 11:59 PM DENTAL TREATMENT COORDINATOR Hospital Encounter [facility] Maternal & Care [address] [place] [id number] Don Ford MD Discharge Disposition: Home or [...] Comments Blood Pressure 113/58 12/01/2024 1:33 PM DENTAL TREATMENT COORDINATOR Pulse 97 12/01/2024 1:33 PM DENTAL TREATMENT COORDINATOR Temperature - - Respiratory Rate - - Oxygen Saturation - - Inhaled Oxygen Concentration - - Weight 97.5 kg (215 lb) 12/01/2024 1:33 PM DENTAL TREATMENT COORDINATOR Height 160 cm (5' 3 ) 12/01/2024 1:33 PM DENTAL TREATMENT COORDINATOR Body Mass Index 38.09 12/01/2024 1:33 PM DENTAL TREATMENT COORDINATOR Plan of Treatment Upcoming Encounters Date Type Department Care Team (Late st Contact Info) Description 12/29/2024 1:45 PM CDT Appointment [facility] [address] [place] [id number] Health Maintenance Due Date Last Done Comments [...] SONOGRAM - COMPLETE Routine 12/01/2024 1:43 PM DENTAL TREATMENT COORDINATOR Antepartum multigravida of advanced maternal age (HCC) History of delivery, currently (HCC) Type 2 diabetes mellitus affecting , antepartum (HCC) History of recurrent miscarriages History of gestational hypertension from Last 3 Months Results * SONOGRAM - COMPLETE (12/01/2024 1:43 PM DENTAL TREATMENT COORDINATOR) Linked Results Indication ======== Diabetes mellitus type II vs GDM-A2, Recurrent loss, AMA 39 years at the [facility] History ====== OB History 11. Para 5 [id number] 1. live 2004. Gest. age 40 w [...] 0 lb 6 oz EFW by Hadlock ([id number]) accelerated Growth Overview Exam date [place] BPD [...] EDC from early U/S * Referred to [facility] for obstetrical U/S & request for [...] including: Lupus anticoagulant (LA) Anticardiolipin antibodies (aCL) Enls-wkbw4-ecpvypf otein I antibodies (aB2GP1) Antiphosphatidylse rine antibodies Post-puerperium uterine cavity imaging (e.g. HSG, hysterosonogram, or MRI) Please also see the separate note from our [facility] Fabrication Welder Follow-up with our [facility] Fabrication Welder to review CBGs & DM management [...] weeks for comprehensive anatomy Coding ====== Procedures [id number]: US Preg Uterus >14 weeks [facility] [employer] PACS Anatomical Region Laterality Modality Other 12/01/2024 1:43 PM DENTAL TREATMENT COORDINATOR Radha Bhavik Goode PROSTHETICS LAB TECHNICIAN-CREDENTIALING ASSISTANT [facility] ORDERABLES from Last 3 Months Olimpia Hawk Personal/Family Self 1985 OLIMP[address] HAWK Personal/Family Spouse
== END 2024-12-04 07:51 | disposition home or self-care (01) ==
PROVIDERS: Visit Provider Emergency Medicine
DX: R10.11 Right upper quadrant pain (principal); K80.20 Calculus of gallbladder without cholecystitis without obstruction
CPT/HCPCS: 76705

== ENCOUNTER 2025-03-21 13:47 | Outpatient (RCR) | payer OTHER, SELFPAY ==
--- NOTE | ~2025-03-21 | US_ITS ---
EXAM EXAMINATION: US OB follow up w [facility] DATE: 03/21/2025 15:33 CDT INDICATION: Evaluate growth. Maternal gestational diabetes COMPARISON: 10/29/2024 and 09/28/2024 TECHNIQUE: Real-time transabdominal obstetric ultrasound. FINDINGS: There is a single intrauterine gestation in vertex presentation. The placenta is posterior. The distance from the tip of the placenta from the cervix cannot be visual ized on the current static images. The cervix is poorly visualized on the current images. cardiac activity and movement is noted with a heart rate of 127 beats per minute. Biophysical profile: breathin of 2 movement: 2 of 2 tone: 2 of 2 Amniotic fluid pocket: 2 of 2 Total score: 8 of 8 The following biometric data were obtained: Biparietal diameter (BPD): 8 cm; head circumference (HC): 29 cm; abdominal circumference (AC): 30 cm; femur length (FL): 6.3 cm. These measurements are concordant. Estimated weight is 2101 g +/- 316 g, which correlates with the 68th percentile when 05/12/2025 is used as estimated date of delivery. As single measurements, these parameters are each equal to the following estimated gestational ages: BPD: 31 weeks 6 days. HC: 32 weeks 3 days. AC: 33 weeks 4 days. FL: 32 weeks 4 days. estimated gestational age based solely on measurements from this exam is 32 weeks 4 days +/- 2 weeks 2 days. Amniotic fluid index measures 12.65 cm, within normal limits. IMPRESSION: Single intrauterine gestation in vertex presentation. Total biophysical profile score of 8 out of 8. Estimated weight correlates with the 68th percentile when 05/12/2025 is used as the estimated da te of delivery. Inadequate visualization of the distance from the tip of the posterior placenta to the cervix on rickjoy guido's study for which short-term follow-up is recommended. Reviewed, dictated and finalized at location A. IMPRESSION: Single intrauterine gestation in vertex presentation. Total biophysical profile score of 8 out of 8. Estimated weight correlates with the 68th percentile when 05/12/2025 is us ed as the estimated date of delivery. Inadequate visualization of the distance from the tip of the posterior placenta to the cervix on today's study for which short-term follow-up is recommended.
== END 2025-05-26 13:35 | disposition other institution (70) ==
LOC: ANHOBOP 13:47
PROVIDERS: Visit Provider Obstetrics & Gynecology
DX: O24.419 Gestational diabetes mellitus in pregnancy, unspecified control (principal); Z3A.32 32 weeks gestation of pregnancy
CPT/HCPCS: 76816; 76819

== ENCOUNTER 2025-05-04 11:45 | Outpatient (CLI) | payer OTHER, SELFPAY ==
--- OUTSIDE RECORDS SUMMARY | 2025-05-04 12:21 | XMS_ITS | Encounter Summary ---
Author Organization [facility] Address [address] [place] [address] Care Team Providers Care Levelman Name Role Phone None, Provider Primary Care Provider Santo chung Encounter Details Date Type Department Care Team (Late st Contact Info) Description 12/13/2024 Receptor Message Enc [facility] Medical Group Multispecialty Care - [facility] [address] [facility], [address] [place] [phone] [employer], [facility] Provider Appointment Social History Tobacco Use Types Packs/Day Years Used Date Smoking Tobacco: Never Smokeless Tobacco: Never Alcohol Use Standard Drinks/Week Comments Not Currently 0 (1 standard drink = 0.6 oz pur e alcohol) Estimated Date of Delivery Comme nts Yes 05/11/2025 Sex and Gender Information Value Date Recorded Sex Assigned at Female 12/09/2024 12:56 PM CDT Legal Sex Female 7:53 PM CDT Gender Identity Not on file Sexual Orientation Not on file documented as of this encounter Plan of Treatment Not on file documented as of this encounter Visit Diagnoses Not on filedocumented in this encounter Care Teams Levelman Relationship Specialty Start Date End Date None, Provider, PCP - General UNKNOWN PHYSICIAN SPECIALTY 12/09/24 documented as of this encounter
--- OUTSIDE RECORDS SUMMARY | 2025-05-04 12:21 | XMS_ITS | Clinical Summary ---
Author Organization [facility] Address [address] [place] [address] Care Team Providers Care Liability Analyst Name Role Phone Unavailable Primary Care Provider Unavailabl e Source Comments [facility],non-owned Affiliates and Associated Physician Practices is amultiple site organization consisting of ambulatory clinics and hospital sitesin [place], [place], [place] and [place]. This disclosure is being madepursuant to the Care Everywhere program and may not contain all information available regarding this patient. Last updated 18.[facility] [employer] Allergies No known active allergies Medications * Be aware that medications may not be up to date on this document. Alwaysverify current medications with the patient. -FeFum -FA-DHA w/o A ( + DHA PO) Take 1 tablet by mouth once daily Active Progesterone 100 MG capsule Take 2 (two) capsules by mouth at bedtime Active aspirin (Aspirin) 81 MG chew tablet Take 1 (one) tablet by mouth once daily Active insulin glargine (Lantus/Semgle e) 100 units/mL pen Inject 8 units at bedtime. Take dosages approximately same time each night. Increase dose as directed due to increasing insulin requirements during . Max total daily dose = 50u 15 mL 5 5 Active insulin pen needle (Novofine) 32G X 6 MM MISCIndication s:Type 2 diabetes mellitus affecting , antepartum (HCC) 1 (one) Each by Injection route once daily 100 Each 5 5 Active Encounters Date Type Department Care Team Description 02/23/2025 Telephone [facility] [place] [address] [place] [address] [phone] Sophia Adkins Future Appointment 02/15/[address] [address] Sophia Adkins Appointment 02/11/[address] [address] Sophia Adkins Appointment 02/10/[address] [address] Sophia Adkins Future Appointment from Last 3 Months Social History Tobacco Use Types Packs/Day Years Used Date Smoking Tobacco: Never Assessed Estimated Date of Delivery Comme nts Yes 05/18/2025 Based on Ultraso und Sex and Gender Information Value Date Recorded Sex Assigned at Not on file Legal Sex Female 5:41 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 Gender Identity Not on file Sexual Orientation Not on file Last Filed Vital Signs Vital Sign Reading Time Taken Comments Blood Pressure 113/58 12/01/2024 1:33 PM ENTERPRISE [employer]UT[employer] ARCHITECT Pulse 97 12/01/2024 1:33 PM ENTERPRISE SOLUT[employer] ARCHITECT Temperature - - Respiratory Rate - - Oxygen Saturation - - Inhaled Oxygen Concentration - - Weight 97.5 kg (215 lb) 12/01/2024 1:33 PM ENTERPRISE SOLUT[employer] ARCHITECT Height 160 cm (5' 3) 12/01/2024 1:33 PM ENTERPRISE SOLUT[employer] ARCHITECT Body Mass Index 38.09 12/01/2024 1:33 PM ENTERPRISE SOLUT[employer] ARCHITECT Plan of Treatment Health Maintenance Due Date Last Done Comments HEPATITIS C SCREENING 10/01/2004 DTAP/TDAP/TD VACCINES (1 - Tdap) 2005 HEPATITIS B VACCINE (1 of 3 - 19+ 3-dose series) 2005 PAP SMEAR 2007 HPV VACCINE (1 - 3-dose SCDM series) 2013 COVID-19 VACCINE ( - 2023-2 5 season) 2024 DEPRESSION SCREENING 09/29/2024 OB-ONE HOUR GLUCOSE 02/09/2025 OB-TDAP CURRENT 02/16/2025 OB-RHOGAM INJECTION 02/23/2025 OB-GROUP B STREP SCREEN 04/13/2025 INFLUENZA VACCINE (#1) 2025 08/16/2009 ZOSTER VACCINE (1 of 2) 2036 HIV SCREENING Completed 10/22/2024 HIB VACCINE Aged Out No longer eligi ble based on patient's age to complete this topic MENINGOCOCCAL (Group B) VACC INE SHARED DECISION-MAKING Aged Out No longer eligibl e based on patient's age to complete this topic MENINGOCOCCAL GROUPS A/C/Y/W VACCINE Aged Out No longer eligible b ased on patient's age to complete this topic PNEUMOCOCCAL VACCINE Aged Out No long er eligible based on patient's age to complete this topic Respiratory Syncytial Virus (RSV) Vaccine Pt: or over 60 yrs (No Doses Required) Completed Insurance [facility] Address: [address] [id number] [facility] * Guarantor: OLIMPIA HAWK Account Type Relation to Patient Date of Phone Billing Address Personal/Family Spouse
--- OUTSIDE RECORDS SUMMARY | 2025-05-04 12:21 | XMS_ITS | Clinical Summary ---
Author Organization [facility] Address [address] [place] [address] Care Team Providers Care Automotive Machinist Name Role Phone None, Provider MD Primary Care Provider Unavaila ble Allergies No known active allergies Medications aspirin 81 MG chewable tablet Chew 1 tablet (81 mg total) by mouth daily. Active HYDROcodone-emma taminophen (NORCO) 5-325 MG tablet Take 1 tablet by mouth every 6 (six) hours as needed for Pain. 12/07/2024 Active VITAMIN WITH IRON 27-0.8 MG tablet Take 1 tablet by mouth daily. 06/29/2024 Active progesterone (PROMETRIUM) 200 MG capsule Take 1 capsule (200 mg total) by mouth daily. 11/25/2024 Active insulin NPH (HUMULIN N) 100 UNIT/ML injection Inject 5 Units into the skin nightly at bedtime. Active Family History Medical History Relation Comments Cancer Neg Hx Denies cancers, bleeding d/o, or reactions to anesthesia Social History Tobacco Use Types Packs/Day Years Used Date Smoking Tobacco: Never Smokeless Tobacco: Never Tobacco Cessation:Counseling Given: Not Answered Alcohol Use Standard Drinks/Week Comments Not Currently [...] Sign Reading Time Taken Comments Blood Pressure 124/76 12/09/2024 4:12 PM CDT Pulse 89 12/09/2024 4:12 PM CDT Temperature 37.2 C (99 F) 12/09/2024 12:54 PM CDT Respiratory Rate 18 12/09/2024 4:12 PM CDT Oxygen Saturation 98% 12/09/2024 4:12 PM CDT Inhaled Oxygen Concentration - - Weight 98.4 kg (217 lb) 12/09/2024 12:54 PM CDT Height 160 cm (5' 3) 12/09/2024 12:54 PM CDT Body Mass Index 38.44 12/09/2024 12:54 PM CDT Plan of Treatment Health Maintenance Due Date Last Done Comments Cervical Cancer Screening Pa p Smear (Age 30 to 64) Every 3 Years 1986 Annual Physical 1989 DTaP, Tdap and Td Vaccines ( 2 - Tdap) 04/14/2001 04/13/2001 Hepatitis B Vaccines (1 of 3 - 19+ 3-dose series) 2005 HPV Vaccines (1 - 3-dose SCD M series) 2013 Cervical Cancer Screening Pa p with HPV Testing (Age 30 to 64) Every 5 Years 2016 Cervical Cancer Screening wi th HPV 2016 COVID-19 Vaccine ( - 2023-2 5 season) 2024 PHQ-2 (Physician [place]) 09/29/2024 Hepatitis C Completed 10/22/2024, 10/22/2024 Meningococcal B Vaccine Aged Out No l onger eligible based on patient's age to complete this topic Meningococcal Vaccine Aged Out No doreen emily eligible based on patient's age to complete this topic Pneumococcal Vaccine: Pediatrics (0 to 5 Years) and At-Risk Patients (6 to 49 Years) Aged Out No longer eligible b ased on patient's age to complete this topic RSV Immunization or 60+ Years (No Doses Required) Completed RSV Immunizations Under 20 Months Aged Out No longer eligible b ased on patient's age to complete this topic Insurance [employer] Care Teams Automotive Machinist Relationship Specialty Start Date End Date None, Provider, PCP - General UNKNOWN PHYSICIAN SPECIALTY 12/09/24
[2025-05-04 12:24] LABS: Hematocrit 38.2 % (37.0-47.0); Hemoglobin 12.6 g/dL (12.0-15.0); Mean Corpuscular HGB Conc 33.0 g/dl (32-36); Mean Corpuscular Hemoglobin 29.5 pg (26-34); Mean Corpuscular Volume 89.5 fl (80-100); Platelet Count Result 255 k/mm3 (150-375); Red Blood Count 4.27 M/mm3 (4.2-5.4); White Blood Count 7.7 K/mm3 (4.5-10.0)
[2025-05-04 13:22] LABS: Syphilis IgG/IgM Antibody Non-Reactive (Nonreactive)
== END 2025-05-04 11:46 | disposition home or self-care (01) ==
PROVIDERS: Visit Provider Obstetrics & Gynecology
DX: Z01.818 Encounter for other preprocedural examination (principal)
CPT/HCPCS: 36415; 85027; 86593; 86850; 86900; 86901

== ENCOUNTER 2025-05-06 09:50 | Inpatient (IN) | payer OTHER, SELFPAY ==
[2025-05-06] VITALS (63 sets, daily range): BP systolic 106–147; BP diastolic 54–93; PULSE 40–118; RESP 12–17; TEMP 36.4–37.1; O2SAT 75–100; BMI 39.6
--- OUTSIDE RECORDS SUMMARY | 2025-05-06 03:25 | XMS_ITS | Clinical Summary ---
Author Organization [facility] Address [address] [place] [id number] Care Team Providers Care White Sidewall Tire Buffer Name Role Phone None, Provider MD Primary [...] - 2023-2 5 season) 2024 PHQ-2 (Physician [place]) 09/29/2024 Hepatitis C Completed 10/22/2024, 10/22/2024 Meningococcal [...] complete this topic Insurance [employer] Care Teams [employer] Buffer Relationship Specialty Start Date End Date None, Provider, PCP - General UNKNOWN PHYSICIAN SPECIALTY 12/09/24
--- OUTSIDE RECORDS SUMMARY | 2025-05-06 03:25 | XMS_ITS | Encounter Summary ---
Author Organization [facility] Address [address] [place] [address] Care Team Providers Care Order Picker/Assembler Name Role Phone None, Provider Primary Care Provider Santo chung Encounter Details Date Type Department Care Team (Late st Contact Info) Description 12/13/[address] [facility] Medical Group Multispecialty Care - [facility] [address] [facility], [address] [place] [phone] [employer], [facility] Provider Appointment Social History Tobacco Use Types [...] on filedocumented in this encounter Care Teams Order Picker/Assembler Relationship Specialty Start Date End Date None, Provider, PCP - General UNKNOWN PHYSICIAN SPECIALTY 12/09/24 documented as of this encounter
--- OUTSIDE RECORDS SUMMARY | 2025-05-06 03:25 | XMS_ITS | Clinical Summary ---
Author Organization [facility] Address [address] [facility] [place] [address] Care Team Providers Care Solar Installation Supervisor Name Role Phone Unavailable Primary Care Provider Unavailabl e Source Comments [facility],non-owned Affiliates and Associated Physician Practices is amultiple site organization consisting of ambulatory clinics and hospital sitesin [place], [place], [place] and [place]. This disclosure is being madepursuant to the Care Everywhere program and may not contain all information available regarding this patient. Last updated 18.[facility] [employer] Allergies No known active allergies Medications * [...] Type Department Care Team Description 02/23/2025 Telephone [facility] [place] [address] [place] [phone] Sophia Adkins Future Appointment 02/15/[address] [address] Sophia Adkins Appointment 02/11/[address] [address] Sophia Adkins Appointment 02/10/[address] [address] Sophia Adkins Future Appointment from Last 3 Months Social History Tobacco Use Types Packs/Day Years Used Date Smoking Tobacco: Never Assessed Estimated Date of Delivery Comme nts Yes 05/18/2025 Based on Ultraso und Sex and Gender Information Value Date Recorded Sex Assigned at Not on file Legal Sex Female 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 Gender Identity Not on file Sexual Orientation Not on file Last Filed Vital Signs Vital Sign Reading Time Taken Comments Blood Pressure 113/58 12/01/2024 1:33 PM CHIP MUCKER Pulse 97 12/01/2024 1:33 PM CHIP MUCKER Temperature - - Respiratory Rate - - Oxygen Saturation - - Inhaled Oxygen Concentration - - Weight 97.5 kg (215 lb) 12/01/2024 1:33 PM CHIP MUCKER Height 160 cm (5' 3) 12/01/2024 1:33 PM CHIP MUCKER Body Mass Index 38.09 12/01/2024 1:33 PM CHIP MUCKER Plan of Treatment Health Maintenance Due Date [...] 60 yrs (No Doses Required) Completed Insurance [facility] * Guarantor: OLIMPIA HAWK Account Type Relation to Patient Date of Phone Billing Address Personal/Family Spouse
[2025-05-06] MEDS: ACETAMINOPHEN 500 MG TABLET 1000 MG PO ×2 (10:22→19:02)
[2025-05-06] MEDS: LACTATED RINGERS 1,000 ML 125 ML IV CONT ×3 (10:23→13:17)
[2025-05-06] MEDS: ONDANSETRON INJ 4 MG/2 ML VIAL IV PUSH (11:09)
[2025-05-06] MEDS: FAMOTIDINE 20 MG/2 ML VIAL IV PUSH (11:09)
--- NOTE | 2025-05-06 11:15 | LDADM ---
This patient, Olimpia Wang, was admitted to Labor/Delivery/Recovery 119 on 05/06/25 at 09:50. Plans for labor, pain management and were discussed with patient. Patient/family oriented to hospital policies and general routines including ID bracelet, bed and alarms, visiting hours, pain management, procedures, bathroom and other care routines, personal items, smoking policy, room service/diet and guest tray routines, security routines, and visiting hours. Patient/Family are encouraged to report perceived risks to care and to ask questions if they do not understand what they are told or what they should do. See OBIX for further documentation.
--- NOTE | 2025-05-06 11:18 | P.HP_ITS ---
H&P: HPI History of Present Illness Date/Time: 05/06/25 11:18 Chief Complaint: Term , unwanted fertility Narrative: This patient is a 39-year-old multiparous female at term with history of previous . She desires female sterilization. We have agreed to perform repeat delivery with bilateral salpingectomy. She understands risks, benefits, and alternatives. She has completed informed consent process and is ready to proceed. The patient understands the details of the procedure. The procedure has been explained in detail. She understands the risks. She understands that injuries may occur that result in hospitalization, more surgery, and severe illness. She understands risk of hemorrhage and infection. She denies any chest pain or shortness of breath. She denies any nausea, vomiting, fever, chills. Review of Systems Review of Systems: All systems reviewed & are unremarkable except as noted in HPI and below Constitutional: Constitutional: Denies chills, Denies fatigue, Denies fever(s) and Denies weakness Eyes: Eyes: Denies blurry vision, Denies change in vision, Denies loss of peripheral vision, Denies loss of vision, Denies other visual disturbances and Denies eye pain ENT: Denies vertigo, Denies dizziness, Denies hearing loss, Denies mouth pain, Denies nasal obstruction, Denies neck mass and Denies neck pain Cardiovascular: Cardiovascular: Denies chest pain, Denies diaphoresis, Denies syncope, Denies leg edema and Denies dyspnea Respiratory: Respiratory: Denies chest congestion, Denies cough, Denies hemoptysis, Denies dyspnea and Denies wheezing Gastrointestinal: Gastrointestinal: Denies abdominal pain, Denies constipation, Denies diarrhea, Denies nausea and Denies vomiting Genitourinary: Genitourinary: Denies hematuria, Denies change in libido, Denies nocturia, Denies genital lesions, Denies flank pain and Denies urinary urgency Musculoskeletal: Musculoskeletal: Denies abnormal gait, Denies back pain, Denies myalgias, Denies arthralgias, Denies joint swelling, Denies muscle weakness and Denies neck pain Integumentary/Breasts: Skin/Breast: Denies swelling, Denies breast pain, Denies breast mass, Denies dry skin, Denies nipple discharge, Denies unusual bruising and Denies jaundice Neurologic: Denies Neuro-related abnormal movements, Denies Abnormal speech present, Denies abnormal gait, Denies behavioral changes, Denies confusion, Denies vertigo, Denies dizziness, Denies syncope, Denies loss of vision, Denies memory loss, Denies convulsions and Denies weakness Psychiatric: Psychiatric: Denies abnormal sleep pattern, Denies behavioral changes, Denies change in libido, Denies confusion, Denies depression, Denies anhedonia and Denies memory loss Endocrine: Endocrine: Reports no additional endocrine complaints, Denies change in libido and Denies fatigue Hematologic/Lymphatic: Hematologic/Lymphatic: Reports no additional hematologic/lymphatic complaints Allergic/Immunologic: Allergic/Immunologic: Reports no additional allergic/immunologic complaints and Denies wheezing PMFSH Past Medical History Medical History Obesity Surgical History Surgical History History of D&C Family History Family History Other No pertinent family history Social History Social History Smoking packs per day: 0 Smoking cigarettes per day: 0.0 Years smoked: 3 Smoking pack-years: 0.00 Smoking status: Former smoker Tobacco type: cigarettes Second hand tobacco smoke exposure: No Additional smoking assessment comments: social Substance use: never Do You Feel Safe in your Home?: Yes Lack of Transportation: No Lack of Food: Never True Current Housing: I Have Housing Concerned About Future Housing: No Difficulty Paying Gas/Electric Bills: No Difficulty Paying for Meds: No Currently Unemployed: No Education: High School Diploma/GED Difficulty w/ Childcare or Family Care: No Spiritual care concerns: No Meds Home Medications and Allergies Home Medications ?Medication ?Instructions ?Recorded ?Confirmed ?Type insulin NPH isoph U-100 human 100 unit subcut 05/04/25 History unit/mL subcutaneous suspension (Humulin N NPH U-100 Insulin (isophane susp)) vits no.130-ferrous fum tablet 05/04/25 History 27 mg iron-folic acid 800 mcg tablet ( Vitamin) progesterone micronized 200 mg mg 08/06/25 History capsule Allergies Allergy/AdvReac Type Severity Reaction Status Date / Time No Known Allergies Allergy Verified 05/04/25 11:20 Vital Signs Vital Signs - 24 hr 05/06/25 10:08 05/06/25 10:16 05/06/25 10:31 Pulse Rate 96 99 92 Blood Pressure 129/71 124/72 123/84 Oxygen Delivery 05/06/25 11:01 05/06/25 11:14 Pulse Rate 86 Blood Pressure 130/76 Oxygen Delivery Room Air Exam Const: General: cooperative, healthy appearing, comfortable and no acute distress Orientation/consciousness: oriented to person, oriented to place and oriented to time HENMT: Head: normal to inspection Ears: external ears normal Face /Nose/Sinus: Normal external nose present and normal facial exam Face and sinus: normal facial exam Eyes: General: appearance normal, both eyes and all related structures Neck: Neck: normal visual inspection, trachea midline and supple Resp: Auscultation: clear to auscultation bilaterally, no crackles, no rales, no rhonchi and no wheezes Cardio: Rate: regular rate Rhythm: regular rhythm Heart sounds: no click, no murmurs and no rubs GI: GI Palp: No abdominal tenderness, No Soft to palpation, No Tenderness to palpation present (GI) and No Palpable mass present Auscultation: normal bowel sounds Skin: General skin exam: normal color and no rashes or lesions noted Neuro: General: oriented to person, oriented to place and oriented to time Extrem: General: normal to inspection, no joint enlargement, no clubbing, cyanosis or edema, no pedal edema and no calf tenderness Psych: Appearance: grossly normal Mental Status: mental status grossly normal Speech and movement: Normal speech and movement present Assessment and Plan Assessment and plan (1) Unwanted fertility: Code(s): Z30.09 - Encounter for other general counseling and advice on contraception Status: Acute (2) delivery delivered: Code(s): O82 - Encounter for delivery without indication Status: Acute Assessment and Plan: This patient is a 39-year-old multiparous female at term with history of previous . She desires female sterilization. We have agreed to perform repeat delivery with bilateral salpingectomy. She understands risks, benefits, and alternatives. She has completed informed consent process and is ready to proceed
--- NOTE | 2025-05-06 11:19 | WPDHPUPDATE1 ---
History and Physical Update Update Date/Time: 05/06/25 11:19 History and Physical has been reviewed, including an updated exam of the patient. There are NO changes in the patient's condition. Risks, benefits, and alternatives have been discussed and questions answered. Patient agrees to proceed with procedure.
--- NOTE | 2025-05-06 11:34 | WPDANESEPPF ---
Anes - Initial Pre Proc Eval Procedure: Operation Date: 05/06/25 12:00 Proposed Procedures p Repeat Section with Bilateral Salpingectomy - Tommy Hensley MD Date/Time: 05/06/25 11:34 Surgeon: Tommy Hensley MD Pre Op Diagnosis: Repeat C/S Patient Data Age: 39 Gender: F Height: 1.65 m Weight: 108 kg Last Vital Signs Pulse 86 05/06/25 11:01 BP 130/76 05/06/25 11:01 O2 Del Method Room Air 05/06/25 11:14 Allergies Allergy/AdvReac Type Severity Reaction Status Date / Time No Known Allergies Allergy Verified 05/04/25 11:20 Home Medications ?Medication ?Instructions ?Recorded ?Confirmed ?Type insulin NPH isoph U-100 human 100 unit subcut 05/04/25 History unit/mL subcutaneous suspension (Humulin N NPH U-100 Insulin (isophane susp)) vits no.130-ferrous fum tablet 05/04/25 History 27 mg iron-folic acid 800 mcg tablet ( Vitamin) progesterone micronized 200 mg mg 05/04/25 History capsule Patient hx anesthesia problems: none Family hx anesthesia problems: none Results Review: All pre-operative results and documents have been reviewed as part of the pre-operative evaluation. [facility] Past Medical History Medical History Obesity Surgical History Surgical History History of D&C Family History Family History Other No pertinent family history Social History Social History Smoking packs per day: 0 Smoking cigarettes per day: 0.0 Years smoked: 3 Smoking pack-years: 0.00 Smoking status: Former smoker Tobacco type: cigarettes Second hand tobacco smoke exposure: No Additional smoking assessment comments: social Substance use: never Do You Feel Safe in your Home?: Yes Lack of Transportation: No Lack of Food: Never True Current Housing: I Have Housing Concerned About Future Housing: No Difficulty Paying Gas/Electric Bills: No Difficulty Paying for Meds: No Currently Unemployed: No Education: High School Diploma/GED Difficulty w/ Childcare or Family Care: No Spiritual care concerns: No Anes - Eval Final PreProcedure Day of Procedure 05/06/25 11:34 Patient weight: morbidly obese Heart: regular rate and rhythm Lungs: clear to auscultation Airway: Mallampati scale class II Neurological: alert and oriented Last oral intake: >/= 8 hours ASA classification: III Emergent: no Anesthetic plan: proceed Anesthesia type and monitoring: regional spinal and standard monitoring Results Review: All pre-operative results and documents have been reviewed as part of the pre-operative evaluation. Informed Consent: The patient's anesthetic plan and its attendant risks and benefits were discussed with the patient/family/POA. Questions were solicited and answers provided to the satisfaction of the patient/family/POA.
[2025-05-06] MEDS: ceFAZolin 2 GM in SODIUM CHLORIDE 0.9% IV 50 ML 100 ML IVPB (11:50)
--- NOTE | 2025-05-06 13:19 | W.PM.OBCSD ---
OB - Delivery Note Procedure Delivery date: 05/06/25 Pre-op diagnosis: Previous Delivery Post-op Diagnosis: Same Procedure Performed: Primary and Other (Salpingectomy, bilateral) Surgeon: Tommy Hensley MD Anesthesia type: Spinal Description of Procedure/Findings: The patient was taken the operating room.? She was prepped and draped in dorsal supine position with a leftward tilt.? This was done after spinal anesthetic was applied.? A low-transverse skin incision was made and carried down till of the fascia with the knife.? The fascial incision was made with the knife.? The fascial incision was extended laterally with Dang scissors.? The fascia was tented upward superiorly and inferiorly the rectus muscles were dissected off bluntly.? The rectus muscles were the midline.? The preperitoneal fat and peritoneum were dissected open bluntly at the superior aspect of the rectus muscles.? The peritoneal incision was extended superior and inferior with good position of bladder.? The uterine incision was made with a scalpel down to the level of the amniotic cavity.? The amniotic cavity was entered bluntly.? The was delivered.? The cord was clamped and cut and the was handed off to waiting pediatric staff.? Cord bloods were obtained.? The placenta was removed manually.? The uterus was exteriorized.? The uterus was cleared of all clots, debris and membranes.? The uterus was closed in 0 Vicryl running lock fashion.? imbricating layer of 0 Vicryl was placed also. Each fallopian tube was grasped and raised with a Homero.? With from the underlying venous structures.? The mesosalpinx between the tube and the rest the adnexa was cauterized and transected with LigaSure cautery.? It was performed from the distal tube near the ovary in a stepwise fashion towards the cornua.? The tube at the cornua was cauterized transected with LigaSure cautery.? This was performed in a bilateral fashion. The uterus was returned to the abdomen.? The gutters were cleared of all clots and debris.? The fascia was closed with 0 Vicryl running fashion.? The subcutaneous tissue was irrigated pinpoint bleeders were cauterized.? The skin was closed with subcuticular absorbable freddy.? The skin incision line was covered with glue.? The patient tolerated the procedure well.? She has taken recovery room in stable condition.? Sponge lap and needle counts were correct x2.? Estimated Blood Loss: 400 Pathology: None sent Complications: No immediate complications Condition: Stable Disposition: Floor
--- NOTE | 2025-05-06 13:24 | S_PTH ---
PATIENT: Olimpia Wang LOC: [facility] U#:[id number] AGE/SX: 39/F ROOM: 287 RE05/06/[address]: Tommy Hensley MD : 1985 BED: 00 DIS: 05/08/2025 SPEC #: [id number] RECD: 05/09/25 06:45 STATUS: COLETTE RENoel #: [id number] MALA: 05/06/25 13:[address]: Tommy Hensley DEPT: [facility] Surgical RECD BY: Nidia Ribeiro ENTERED: 05/09/25 06:46 SP TYPE: Surgical OTHR DR: UNKNOWN,DOCTOR Tissues: A - Fallopian Tube Bilateral Procedures: Gross and Microscopic Level 2 Hematoxylin and Eosin Stain
[2025-05-06] MEDS: OXYTOCIN 30 UNITS/NS 500 ML 30 UNITS/500 ML BAG 125 UNITS IV CONT (14:22)
--- NOTE | 2025-05-06 16:16 | PC.NURSE ---
Patient transferred to post room #287 via stretcher. Support person present. Oriented to unit, room, information board, rooming in, admission packet and security measures. Patient verbalizes understanding.
[2025-05-06] MEDS: KETOROLAC 15 MG/ML VIAL (*BKC) IV PUSH (19:02)
[2025-05-06] MEDS: LIDOCAINE 5% PATCH 1 PATCH TRANSDERM (19:03)
[2025-05-06] MEDS: DEXTROSE 5%/0.45% SOD CHL 1,000 ML 125 ML IV CONT (20:49)
[2025-05-07] MEDS: ACETAMINOPHEN 500 MG TABLET 1000 MG PO ×4 (00:56→21:03)
[2025-05-07] MEDS: KETOROLAC 15 MG/ML VIAL (*BKC) IV PUSH ×2 (00:57→08:59)
[2025-05-07 05:19] LABS: Hematocrit 31.2 % (37.0-47.0); Hemoglobin 10.2 g/dL (12.0-15.0); Immature Granulocyte Percent A 0.4 % (0-0.5); Lymphocytes Absolute Auto 1.55 K/mm3 (0.9-3.2); Mean Corpuscular HGB Conc 32.7 g/dl (32-36); Mean Corpuscular Hemoglobin 29.5 pg (26-34); Mean Corpuscular Volume 90.2 fl (80-100); Nucleated Red Blood Cells Absolute Auto 0.000 K/mm3 (0.0-0.012); Nucleated Red Blood Cells Perc 0.0 % (0.0-0.2); Platelet Count Result 230 k/mm3 (150-375); Red Blood Count 3.46 M/mm3 (4.2-5.4); White Blood Count 10.2 K/mm3 (4.5-10.0)
[2025-05-07 06:03] LABS: Syphilis IgG/IgM Antibody Non-Reactive (Nonreactive)
[2025-05-07 08:46] VITALS: BP 124/85; PULSE 81; RESP 14; TEMP 36.9; O2SAT 99
[2025-05-07] MEDS: DOCUSATE SODIUM 100 MG CAPSULE PO (08:57)
[2025-05-07] MEDS: SIMETHICONE 80 MG TAB.CHEW PO ×3 (08:57→21:03)
[2025-05-07] MEDS: MULTIVIT/MIN/PREN/FOL AC/IRON TABLET 1 TAB PO (08:58)
--- NOTE | 2025-05-07 10:47 | PM.OBPNVD ---
OB - PN: Subj Subjective Date/time seen: 05/07/25 10:47 Patient comments: no complaints, pain well controlled, tolerating diet and flatus present OB - PN: Obj Data Labs 05/07/25 04:49 Labs: Laboratory Results - last 24 hr 05/06/25 05/07/25 11:47 04:49 WBC 10.2 H RBC 3.46 L Hgb 10.2 L Hct 31.2 L MCV 90.2 MCH 29.5 MCHC 32.7 RDW 14.0 Plt Count 230 MPV 11.6 H Immature Gran % (Auto) 0.4 Neut % (Auto) 76.6 H Lymph % (Auto) 15.3 L [place] % (Auto) 7.4 Eos % (Auto) 0.1 Baso % (Auto) 0.2 Lymph # (Auto) 1.55 [place] # (Auto) 0.8 H Eos # (Auto) 0.0 Baso # (Auto) 0.0 Abs Immat Gran (auto) 0.04 H Absolute Neuts (auto) 7.8 H Absolute Nucleated RBC 0.000 Nucleated RBC % 0.0 POC Capillary Glucose 62 L Syphilis IgG/IgM Ab Non-reactive OB - PN A/P Plan day: 1 Comments: Post Op LTCS - no problems, routine recovery Time Spent With Patient Time: Total time spent is greater than 50% in coordination of care (as documented) at patient's floor/unit and/or counseling patient: Exam Const: General: cooperative, healthy appearing, comfortable and no acute distress Resp: Auscultation: no crackles, no rales, no rhonchi and no wheezes Cardio: Rhythm: regular rhythm Heart sounds: no click and no murmurs GI: Inspection: non-distended Auscultation: normal bowel sounds Extrem: General: normal to inspection, no pedal edema and no calf tenderness
[2025-05-07 12:53] VITALS: BP 140/81; PULSE 80; RESP 16; TEMP 37; O2SAT 97
--- NOTE | 2025-05-07 13:22 | WPDANLDPN2 ---
Anes-Prog Note L&D Date/Time: 05/07/25 13:22 Comfortable throughout: section Neuraxial method: spinal Epidural/Spinal procedure site: clean & non-tender Neuro status: Neuro function grossly intact. Cardiovascular status: normal Respiratory status: normal Airway patency: baseline Mental status: baseline Post-Op hydration status: normal Vital Signs: Last Vital Signs Temp 37.0 C 05/07/25 12:53 Pulse 80 05/07/25 12:53 Resp 16 05/07/25 12:53 BP 140/81 05/07/25 12:53 Pulse Ox 97 05/07/25 12:53 O2 Del Method Room Air 05/06/25 16:05 Pain score (VAS): 2 I/O: Intake & Output 05/06/25 05/07/25 05/07/25 23:59 07:59 15:59 Intake Total 500 1000 Output Total 400 1450 Balance 100 -450 Post-procedural complaints: none Patient feedback: Patient satisfied with anesthetic care.
--- NOTE | 2025-05-07 13:22 | WPDANLDNPN2 ---
Anes-Prog Note L&D-Neuraxial Date/Time: 05/07/25 13:22 Neuraxial medications: intrathecal PF morphine Opiod-related complaints: none Patient feedback: Patient satisfied with post-operative pain management.
[2025-05-07] MEDS: IBUPROFEN 600 MG TABLET PO ×2 (15:29→21:03)
[2025-05-07 20:50] VITALS: BP 121/79; PULSE 86; RESP 16; TEMP 37.1; O2SAT 99
[2025-05-07] MEDS: LIDOCAINE 5% PATCH 1 PATCH TRANSDERM (23:37)
[2025-05-08] MEDS: ACETAMINOPHEN 500 MG TABLET 1000 MG PO ×2 (04:05→10:45)
[2025-05-08] MEDS: IBUPROFEN 600 MG TABLET PO ×2 (04:05→10:45)
[2025-05-08] MEDS: DOCUSATE SODIUM 100 MG CAPSULE PO (08:39)
[2025-05-08] MEDS: SIMETHICONE 80 MG TAB.CHEW PO (08:39)
[2025-05-08] MEDS: MULTIVIT/MIN/PREN/FOL AC/IRON TABLET 1 TAB PO (08:39)
[2025-05-08 08:40] VITALS: BP 123/83; PULSE 90; RESP 16; TEMP 36.4; O2SAT 99
--- NOTE | 2025-05-08 10:28 | P.PNOB_ITS ---
OB - PN: Subj Subjective Date/time seen: 05/08/25 10:28 Patient comments: no complaints, pain well controlled, incisional pain, tolerating diet and flatus present OB - PN: Obj Data Labs 05/07/25 04:49 OB - PN A/P Plan day: 2 Plan: routine care Comments: POD#2 LTCS - no problems, Time Spent With Patient Time: Total time spent is greater than 50% in coordination of care (as documented) at patient's floor/unit and/or counseling patient: Exam 2 Const: General: comfortable, no acute distress and alert Resp: Effort & Inspection: normal respiratory effort Auscultation: no crackles, no rales and no rhonchi Cardio: Rate: regular rate Heart sounds: no click, no murmurs and no rubs GI: Inspection: non-distended Auscultation: normal bowel sounds Other: Incision - CDI Extrem: General: normal to inspection, no pedal edema and no calf tenderness
--- NOTE | 2025-05-08 10:29 | PM.OBDSVD ---
DS: Admitting Diagnosis Discharge Date 05/08/2025 Admitting Diagnosis Term DS: Discharge Diagnosis Discharge Diagnosis (1) delivery delivered: Code(s): O82 - Encounter for delivery without indication Status: Acute OB - DS: Summary OB Procedures : None OB Procedures Intrapartum: OB Procedures: : None Peripartum Data Procedures: Procedures Operation Date: 05/06/25 12:00 Actual Procedure Side Surgeon p Repeat Section with Bilateral Salpingectomy Tommy Hensley MD Time Spent with Patient Time attestation: Total time spent providing and/or coordinating discharge services: DS: Data Data Completed and Pending Pending studies at discharge: Pending at discharge 05/06/25 13:24 Surgical [PTH] Routine Discharge Plan Discharge Discharging Clinician: Tommy Hensley Patient Disposition: Home Activity: pelvic rest Diet: regular Patient Instructions: Antibiotic Form Patient Language: Macedonian Stand Alone Forms: General Discharge Information Follow-up/Referrals: Tommy Hensley MD [Physician] - Discharge Medications: New hydrocodone-acetaminophen 5-325 mg tablet 1 - 2 tablet PO Q6H PRN (Reason: pain) Qty: 25 0RF Continued Humulin N NPH U-100 Insulin 100 unit/mL suspension SUBCUT progesterone micronized 200 mg capsule Vitamin 27 mg iron- 800 mcg tablet Date of admission: 05/06/25 09:50 Primary Care Provider: UNKNOWN,DOCTOR Admitting Provider: Tommy Hensley Attending physician on admission: Tommy Hensley Condition: Stable
[2025-05-10 10:33] VITALS: BP 126/83; PULSE 83; RESP 18; TEMP 36.7; O2SAT 100
== END 2025-05-08 13:15 | disposition home or self-care (01) | DRG 539 ==
LOC: ANHLDR 09:54 → ANHOB2 16:21
PROVIDERS: Admitting Provider Obstetrics & Gynecology; Visit Provider Obstetrics & Gynecology
PROC: 10D00Z1 Extraction of Products of Conception, Low, Open Approach (ICD-10-PCS; CPT 59514; principal; 2025-05-06 12:00)
DX: O34.219 Maternal care for unspecified type scar from previous cesarean delivery (principal); Z30.2 Encounter for sterilization; O99.214 Obesity complicating childbirth; O24.424 Gestational diabetes mellitus in childbirth, insulin controlled; Z3A.38 38 weeks gestation of pregnancy; Z37.0 Single live birth
CPT/HCPCS: 36415; 82948; 85025; 86593; 88302; J0690; A9270; J1100; J1885; J2274; J2371; J2405; J2590; J7120